=== PATIENT | male | born 1980 | race Caucasian/White ===

== ENCOUNTER 2020-03-19 15:04 | Outpatient (REF) | payer OTHER, SELFPAY ==
[2020-03-19 15:37] LABS: COVID-19 Test Positive (Negative)
== END 2020-03-19 15:05 | disposition home or self-care (01) ==
LOC: HO.LAB 15:04
PROVIDERS: Visit Provider Internal Medicine
DX: Z20.828 Contact with and (suspected) exposure to other viral communicable diseases (principal)
CPT/HCPCS: 87635

== ENCOUNTER 2020-08-21 13:11 | Outpatient (REF) | payer MEDICAID, SELFPAY | END 2020-08-21 13:12 | disposition home or self-care (01) | LOC: HO.LAB 13:11 | PROVIDERS: Visit Provider Internal Medicine | DX: Z20.822 Contact with and (suspected) exposure to COVID-19 (principal) | CPT/HCPCS: 36415; C9803; U0003; U0005 ==

== ENCOUNTER 2021-03-30 08:42 | Emergency (ER) | payer MEDICAID, SELFPAY ==
--- NOTE | ~2021-03-30 | XR_ITS ---
EXAMINATION: XR CHEST CLINICAL INFORMATION: Shortness of breath COMPARISON: Previous chest x-ray July 2018 TECHNIQUE: Frontal view of the chest was obtained. FINDINGS: No significant abnormality is noted involving the heart, lungs, mediastinum, bony thorax or soft tissues. XR/XR chest 1V IMPRESSION: Unremarkable examination.
[2021-03-30 08:47] VITALS: BP 137/73; PULSE 84; RESP 18; TEMP 36.4; O2SAT 96; BMI 27.4
--- NOTE | 2021-03-30 10:10 | ECG_ITS ---
Test Reason : SOB Blood Pressure : / mmHG Vent. Rate : 078 BPM Atrial Rate : 078 BPM P-R Int : 154 ms QRS Dur : 084 ms QT Int : 362 ms P-R-T Axes : 050 004 020 degrees QTc Int : 412 ms Normal sinus rhythm Normal ECG No significant changes seen Referred By: Dm Anderson Electronically Signed By:DEISI BISWAS MD
[2021-03-30 10:39] LABS: MANUAL DIFF FLAG NO
[2021-03-30 10:50] LABS: Basophils Percent Auto 0.2 % (0-2); Eosinophils Absolute Auto 0.1 X10*3/uL (0.0-0.4); Eosinophils Percent Auto 0.9 % (0-4); Hematocrit 37.9 % (42-52); Hemoglobin 11.1 g/dl (14.0-18.0); Imm Gran Abs Auto 0.01 X10*3/uL (0.00-0.03); Imm Gran Pct Auto 0.2 % (0.0-0.4); Lymphocytes Absolute Auto 1.1 X10*3/uL (1.2-4.9); Lymphocytes Percent Auto 20.1 % (20-40); Mean Corpuscular HGB Conc 29.3 g/dl (31.0-36.0); Mean Corpuscular Hemoglobin 21.7 pg (27.0-33.0); Monocytes Absolute Auto 0.6 X10*3/uL (0.1-1.2); Monocytes Percent Auto 10.8 % (2-11); Neutrophils Absolute Auto 3.6 X10*3/uL (2.0-8.3); Neutrophils Percent Auto 67.8 % (45-73); Platelet Count 203 X10*3/uL (160-400); Red Blood Count 5.12 X10*6/uL (4.60-5.80); Red Cell Distribution Width 17.9 % (11.0-16.0); White Blood Count 5.3 X10*3/uL (4.8-10.8)
[2021-03-30 11:00] LABS: Alanine Aminotransferase 16 U/L (0-40); Albumin Level 4.3 g/dL (3.5-5.0); Alkaline Phosphatase 89 U/L (39-117); Anion Gap 10 (12-20); Aspartate Amino Transferase 15 U/L (5-37); Bilirubin Total 0.3 mg/dL (0.0-1.0); Blood Urea Nitrogen 22 mg/dL (9-16); Calcium 9.2 mg/dL (8.4-10.2); Carbon Dioxide 24 mmol/L (22-29); Chloride 107 mmol/L (96-108); Creatinine Clr Calc Pharmacy 111.2; Estimated Glomerular Filt Rate > 60; Glucose Random 99 mg/dL (60-115); Potassium 4.4 mmol/L (3.3-5.1); Sodium 137 mmol/L (135-145); Total Protein 7.4 g/dL (6.5-8.0)
[2021-03-30 11:01] LABS: INTERNATIONAL NORM RATIO 0.9 (0.9-1.1); Prothrombin Time 10.7 SEC (9.9-13.0)
[2021-03-30 11:01] LABS: COVID-19 Test Negative (Negative)
[2021-03-30 11:02] LABS: B Type Natriuretic Peptide < 10 pg/mL (<100)
[2021-03-30 11:04] LABS: Partial Thromboplastin Time 29.3 SEC (24.1-38.0)
--- NOTE | 2021-03-30 11:22 | ED_ITS ---
HPI - General Adult General Chief complaint: Neck Pain/Injury Stated complaint: SOB/Neck pain Time Seen by Provider: 03/30/21 08:58 Source: patient Mode of arrival: ambulatory Limitations: no limitations History of Present Illness HPI narrative: Patient presents to ED from other complaints. Patient states he woke up with posterior neck pain that is worse on movement. Patient denies any photophobia, fever, chills, slurred speech, facial droop, paralysis of extremities, headche, or any recent trauma to the head or neck. Patient has secondary complaint of shortness of breath. Patient states no coughing, fever, or chills. Patient states he had COVID last year and since then has had intermittent shortness of breath on exertion since being diagnosed with COVID. Patient states slight worsening past couple weeks. Patient denies any recent long travel, recent surgery, swelling of lower extremities, calf pain, coughing up blood, any estrogen pill use, or any trauma. Patient denies any history of blood clots. Patient presently is asymptomatic but wanted to get worked up for it. Related Data Previous Rx's Medication Instructions Recorded cyclobenzaprine 10 mg tablet 10 mg PO TID PRN #21 tab 03/30/21 naproxen 500 mg tablet 500 mg PO BID PRN #20 tab 03/30/21 Allergies Allergy/AdvReac Type Severity Reaction Status Date / Time aspirin [Aspirin] Allergy Intermediate TACHYCARDIA, Verified 07/01/20 06:57 palpitations, tachycardia latex [LATEX] Allergy Intermediate RASH Unverified 02/21/20 17:55 diphenhydramine AdvReac Intermediate TACHYCARDIA Unverified 02/21/20 17:55 [From BENADRYL] AND CHNAGES IN BEHAVOR Review of Systems Review of Systems: Yes all other systems are reviewed and are negative Constitutional: Constitutional: Reports as per HPI and Reports no additional constitutional complaints Eyes: Eyes: Reports as per HPI and Reports no additional eye complaints ENT: Reports system reviewed and no additional complaints, except as documented and Reports neck pain Cardiovascular: Cardiovascular: Reports as per HPI, Reports no additional cardiovascular complaints and Reports dyspnea (For 1 year since having COVID) Respiratory: Respiratory: Reports as per HPI, Reports no additional respiratory complaints and Reports dyspnea (For 1 year since having COVID) Gastrointestinal: Gastrointestinal: Reports as per HPI and Reports no additional gastrointestinal complaints Genitourinary: Genitourinary: Reports no additional male genitourinary complaints and Reports as per HPI Musculoskeletal: Musculoskeletal: Reports no additional musculoskeletal complaints, Reports as per HPI and Reports neck pain Neurologic: Reports system reviewed and no additional complaints, except as documented and Reports as per HPI Psychiatric: Psychiatric: Reports no additional psychiatric complaints and Reports as per HPI [facility] Past Medical History Medical History (Updated 03/30/21 @ 12:07 by YANELY Lira) Abdominal pain despite therapy for Crohn's disease Surgical History (Updated 07/01/20 @ 06:58 by ANGELA Ellis) H/O abdominal surgery Family History Family History (Updated 07/01/20 @ 07:31 by ANGELA Ellis) Father Hypertension Mother Diabetes Maternal Grandfather Renal cancer Brother In good health Brother In good health Sister In good health Son In good health Son In good health Social History Social History Advance Directives: No Advance Directives Information Provided: Yes Physical Exam Vital Signs: Vital Signs: Last Vital Signs Temp 97.5 F 03/30/21 08:47 Pulse 79 03/30/21 11:48 Resp 18 03/30/21 11:48 BP 130/72 03/30/21 11:48 Pulse Ox 97 03/30/21 11:48 Body Mass Index 27.4 Const: General: cooperative, healthy appearing, comfortable, no acute distress, well developed, alert, awake and Physically active Orientation/consciousness: patient oriented x3 HENMT: Head: Yes normal to inspection, Yes No palpable skull fracture present, Yes normocephalic, Yes atraumatic and No abrasion Eyes: General: appearance normal, both eyes and all related structures Neck: Neck: Yes normal visual inspection, Yes full ROM, Yes no lymphadenopathy, Yes no meningeal signs, Yes trachea midline, Yes supple, No anterior neck swelling and Yes tender (Mild posterior) Chest: Chest palpation & inspection: normal inspection of the chest and normal palpation of entire chest wall Resp: Effort & Inspection: normal respiratory effort and able to speak in complete sentences Cardio: Jugular venous distension: no JVD Heart sounds: S1 normal heart sound present and S2 normal heart sound present GI: Inspection: Yes normal to inspection and No abdominal wall ecchymosis Palpation (GI): Soft to palpation, not firm, nontender, no guarding and not rigid : General: No CVA tenderness and Yes no CVA tenderness Back/Spine/Pelvis: Back: no CVA tenderness, No CVA tenderness and No back tenderness Skin: General skin exam: no rashes or lesions noted and elasticity normal Neuro: Other: Negative facial droop. Negative slurred speech. [id number]-[id number] and rapid hand movement intact. Negative Pronator drift. All extremities equal strength 5+. Negative Romberg General: patient oriented x3, gait normal, no meningeal signs and CN's II-XI intact bilaterally Cranial nerves: Yes CN's II-XII intact bilaterally Extrem: Other: Lower extremity negative for swelling, pitting edema, calf tenderness General: Yes normal to inspection and Yes full ROM Psych: Appearance: grossly normal, well kempt and not disheveled Course Course Course Narrative: No need for imaging of neck sounds like muscular pain. No injury. Do cardiac evaluation due to patient stating shortness of breath worsening possible weeks. Suspecting PE. Perc score is 0. Increase EKG ordered. Chest x-ray ordered. COVID or more. Reevaluation(s) Reevaluation #1: Patient EKG normal. Chest x-ray negative for pneumonia. COVID swab negative. Troponin negative. BNP negative. Labs are baseline. Perc score is 0. Not suspecting PE. Patient to be discharged and follow up pulmonology for chronic shortness of breath due to COVID since last year. Neck pain will be treated as muscular pain Time: 12:02 Medical Decision Making [facility] Narrative Medical decision making narrative: Chronic shortness of breath. Muscular neck pain Lab Data Result diagrams: 03/30/21 10:30 03/30/21 10:31 Labs: Lab Results 03/30/21 03/30/21 03/30/21 Range/Units 10:26 10:30 10:30 WBC 5.3 (4.8-10.8) X10*3/uL RBC 5.12 (4.60-5.80) X10*6/uL Hgb 11.1 L (14.0-18.0) g/dl Hct 37.9 L (42-52) % MCV 74.0 L (80-98) fL MCH 21.7 L (27.0-33.0) pg MCHC 29.3 L (31.0-36.0) g/dl RDW 17.9 H (11.0-16.0) % Plt Count 203 (160-400) X10*3/uL MPV Not Reportable Immature Gran % (Auto) 0.2 (0.0-0.4) % Neut % (Auto) 67.8 (45-73) % Lymph % (Auto) 20.1 (20-40) % [place] % (Auto) 10.8 (2-11) % Eos % (Auto) 0.9 (0-4) % Baso % (Auto) 0.2 (0-2) % Lymph # (Auto) 1.1 L (1.2-4.9) X10*3/uL [place] # (Auto) 0.6 (0.1-1.2) X10*3/uL Eos # (Auto) 0.1 (0.0-0.4) X10*3/uL Baso # (Auto) 0.0 (0.0-0.2) X10*3/uL Abs Immat Gran (auto) 0.01 (0.00-0.03) X10*3/uL Absolute Neuts (auto) 3.6 (2.0-8.3) X10*3/uL Absolute Nucleated RBC 0.000 (0.0-0.012) X10*3/uL Nucleated RBC % (auto) 0.0 (0.0-0.2) /100WBC PT 10.7 (9.9-13.0) SEC INR 0.9 (0.9-1.1) APTT 29.3 (24.1-38.0) SEC Sodium (135-145) mmol/L Potassium (3.3-5.1) mmol/L Chloride (96-108) mmol/L Carbon Dioxide (22-29) mmol/L Anion Gap (12-20) BUN (9-16) mg/dL Creatinine (0.5-1.4) mg/dL Estim Creat Clear Calc Estimated GFR Random Glucose (60-115) mg/dL Calcium (8.4-10.2) mg/dL Total Bilirubin (0.0-1.0) mg/dL AST (5-37) U/L ALT (0-40) U/L Alkaline Phosphatase (39-117) U/L Troponin I High Sens (<3.5-35.0) ng/L B-Natriuretic Peptide (<100) pg/mL Total Protein (6.5-8.0) g/dL Albumin (3.5-5.0) g/dL COVID-19 (ALLI) Negative (Negative) COVID-19 Clin Com See Note 03/30/21 03/30/21 Range/Units 10:31 10:31 WBC (4.8-10.8) X10*3/uL RBC (4.60-5.80) X10*6/uL Hgb (14.0-18.0) g/dl Hct (42-52) % MCV (80-98) fL MCH (27.0-33.0) pg MCHC (31.0-36.0) g/dl RDW (11.0-16.0) % Plt Count (160-400) X10*3/uL MPV Immature Gran % (Auto) (0.0-0.4) % Neut % (Auto) (45-73) % Lymph % (Auto) (20-40) % [place] % (Auto) (2-11) % Eos % (Auto) (0-4) % Baso % (Auto) (0-2) % Lymph # (Auto) (1.2-4.9) X10*3/uL [place] # (Auto) (0.1-1.2) X10*3/uL Eos # (Auto) (0.0-0.4) X10*3/uL Baso # (Auto) (0.0-0.2) X10*3/uL Abs Immat Gran (auto) (0.00-0.03) X10*3/uL Absolute Neuts (auto) (2.0-8.3) X10*3/uL Absolute Nucleated RBC (0.0-0.012) X10*3/uL Nucleated RBC % (auto) (0.0-0.2) /100WBC PT (9.9-13.0) SEC INR (0.9-1.1) APTT (24.1-38.0) SEC Sodium 137 (135-145) mmol/L Potassium 4.4 (3.3-5.1) mmol/L Chloride 107 (96-108) mmol/L Carbon Dioxide 24 (22-29) mmol/L Anion Gap 10 L (12-20) BUN 22 H (9-16) mg/dL Creatinine 0.88 (0.5-1.4) mg/dL Estim Creat Clear Calc 111.2 Estimated GFR > 60 Random Glucose 99 (60-115) mg/dL Calcium 9.2 (8.4-10.2) mg/dL Total Bilirubin 0.3 (0.0-1.0) mg/dL AST 15 (5-37) U/L ALT 16 (0-40) U/L Alkaline Phosphatase 89 (39-117) U/L Troponin I High Sens < 3.5 (<3.5-35.0) ng/L B-Natriuretic Peptide < 10 (<100) pg/mL Total Protein 7.4 (6.5-8.0) g/dL Albumin 4.3 (3.5-5.0) g/dL COVID-19 (ALLI) (Negative) COVID-19 Clin Com ECG Data Interpretation: Normal sinus rhythm. Ventricular rate 78. Pr interval 154. QRS 84. QTC 412. Negative STEMI Discharge Plan Discharge Clinical Impression: Post-COVID chronic dyspnea, Neck muscle spasm Patient Disposition: Home, Self-Care Instructions: Spasmodic Torticollis (ED), Dyspnea (ED), Muscle Spasm (ED) Additional Instructions: Return to the ED immediately for headache, photophobia, neck stiffness, drooli ng, rash, chest pain, shortness of breath coughing up blood, swelling of lower extremities, calf pain, or any other concerning symptoms. Please follow-up with primary care provider. You will be referred to a retouching operator for chronic shortness of breath due to COVID since last year. Prescriptions: New naproxen 500 mg tablet 500 mg PO BID PRN (Reason: pain) Qty: 20 RF: 0 cyclobenzaprine 10 mg tablet 10 mg PO TID PRN (Reason: pain) Qty: 21 RF: 0 Referrals: Tramaine Maxwell MD [Physician] - 2 days (Chronic shortness of breath due to COVID) Stand Alone Forms: Work/School Release Interventions: ED Discharge Assessment Last Done: 03/30/21 12:12 Discharge Date/Time: 03/30/21 12:12 Print Language: Slovenian
[2021-03-30 11:44] LABS: Troponin-I High Sensitivity < 3.5 ng/L (<3.5-35.0)
[2021-03-30 11:48] VITALS: BP 130/72; PULSE 79; RESP 18; O2SAT 97
== END 2021-03-30 12:12 | disposition home or self-care (01) ==
PROVIDERS: Physician Assistant; Emergency Provider Emergency Medicine
DX: R06.00 Dyspnea, unspecified (principal); U09.9 Post COVID-19 condition, unspecified; M62.830 Muscle spasm of back; Z20.822 Contact with and (suspected) exposure to COVID-19
CPT/HCPCS: 36415; 71045; 80053; 83880; 84484; 85025; 85610; 85730; 87635; 93005; 99283; 99284

== ENCOUNTER 2021-10-14 09:15 | Inpatient (IN) | payer MEDICAID, SELFPAY ==
--- NOTE | ~2021-10-14 | CT_ITS ---
EXAMINATION: CT ABDOMEN AND PELVIS WITHOUT CONTRAST CLINICAL INFORMATION: Pain. Rectal bleeding. Crohn's disease. COMPARISON: Abdominal MRI 05/01/[address] abdomen pelvis 02/25/2019 TECHNIQUE: Multidetector volumetric imaging was performed from the superior aspect of the liver through the pubic symphysis. Sagittal and coronal reformatted images were obtained on the technologist's workstation. This CT examination was performed using dose optimization techniques as appropriate, variously including the following: *Automated exposure control *Adjustment of mA and/or kV according to patient size (this includes techniques or standardized protocols for targeted exams where dose is matched to indication/reason for exam; i.e. extremities or head) *Use of iterative reconstruction technique DLP: 516 mGy-cm FINDINGS: Visualized lung bases are well aerated. The liver demonstrates normal size, contour and attenuation. Approximately 1.5 cm gallstone noted within otherwise unremarkable appearing gallbladder. The pancreas, spleen and adrenal glands are unremarkable. Symmetrically sized kidneys without renal calculi or hydronephrosis. Similar postsurgical changes of the small bowel. Similar prominence of the single loop of small bowel within the left abdomen. There is no evidence of an obstructive process. There is a mild to moderate colonic stool burden. Fat-containing ventral abdominal hernias are again noted and appear relatively similar. Normal caliber abdominal aorta. The bladder is normal in appearance. The prostate gland is normal in size. No gross free pelvic fluid. No inguinal lymphadenopathy. No acute osseous abnormality. CT/CT abdomen pelvis wo con IMPRESSION: No CT evidence for acute abnormality within the abdomen or pelvis. Fleischner guidelines were followed.
[2021-10-14 09:26] VITALS: BP 125/80; PULSE 89; RESP 16; TEMP 36.9; O2SAT 98; BMI 28.2
--- NOTE | 2021-10-14 09:56 | ED_ITS ---
HPI - Abdominal Pain General Chief Complaint: Abdominal Pain Stated Complaint: rectal bleeding Time Seen by Provider: 10/14/21 09:54 Source: patient Mode of arrival: ambulatory Limitations: no limitations History of Present Illness HPI narrative: 41-year-old male came in for evaluation of abdominal pain and rectal bleed. Patient with history of Crohn's disease and status post colectomy (done few years ago at [facility]), patient presented with increased abdominal pain, and blood mixed in the stool for the past 5 days. Patient also been feeling dizzy especially when he changed positions. No chest pain. No LOC. Related Data Previous Rx's Medication Instructions Recorded cyclobenzaprine 10 mg tablet 10 mg PO TID PRN #21 tab 03/30/21 naproxen 500 mg tablet 500 mg PO BID PRN #20 tab 03/30/21 Allergies Allergy/AdvReac Type Severity Reaction Status Date / Time aspirin [Aspirin] Allergy Intermediate TACHYCARDIA, Verified 07/01/20 06:57 palpitations, tachycardia latex [LATEX] Allergy Intermediate RASH Verified 10/14/21 10:29 diphenhydramine AdvReac Intermediate TACHYCARDIA Verified 10/14/21 10:29 [From BENADRYL] AND CHNAGES IN BEHAVOR Review of Systems Review of Systems All other systems are reviewed and are negative Constitutional: Reports as per HPI and Reports no additional constitutional complaints Eyes: Reports as per HPI and Reports no additional eye complaints Reports system reviewed and no additional complaints, except as documented Cardiovascular: Reports as per HPI and Reports no additional cardiovascular complaints Respiratory: Reports as per HPI and Reports no additional respiratory complaints Gastrointestinal: Reports as per HPI and Reports no additional gastrointestinal complaints Genitourinary: Reports no additional female genitourinary complaints Musculoskeletal: Reports no additional musculoskeletal complaints Skin/Breast: Reports system reviewed and no additional complaints, except as docu Psychiatric: Reports no additional psychiatric complaints Endocrine: Reports no additional endocrine complaints Hematologic/Lymphatic: Reports no additional hematologic/lymphatic complaints Allergic/Immunologic: Reports no additional allergic/immunologic complaints Reports system reviewed and no additional complaints, except as documented and Reports Abnormal speech present [facility] Past Medical History Medical History Abdominal pain despite therapy for Crohn's disease Asthma COVID-19 virus infection Crohn's disease Surgical History H/O abdominal surgery Family History Family History Father Hypertension Mother Diabetes Maternal Grandfather Renal cancer Brother In good health Brother In good health Sister In good health Son In good health Son In good health Social History Social History Alcohol intake: never Patient Tobacco Use Status: Never used Tobacco Use of substances other than those prescribed or required for medical reasons: No Advance Directives: No Advance Directives Information Provided: No Physical Exam ED Vital Signs: Vital Signs - 24 hr 10/14/21 09:26 10/14/21 11:22 Temperature 98.4 F Pulse Rate 89 77 Respiratory Rate 16 18 Blood Pressure 125/80 123/76 Pulse Oximetry 98 98 BMI result Body Mass Index 28.2 Vital signs have been reviewed as appeared to be correct. Blood pressure normal. Heart rate normal. Respiration rate normal. Temperature normal. Oxygen saturation normal. Appearance: Alert. Oriented X3. No acute distress. Head: Normal external exam. Normocephalic. Atraumatic. No Murray signs noted. No raccoon eyes noted Eyes: PERRLA. EOMI. Conjunctiva and sclera normal. Eyelids normal. ENT: TM's Normal. Pharynx normal. Uvula midline. Moist mucous membranes. No trismus noted. No drooling noted. No muffled voice noted. Neck: Normal inspection. Neck supple. FROM. No adenopathy. Thyroid Normal. No meningeal signs. No neck mass noted. CVS: Normal heart rate and rhythm. Heart sound normal. No murmurs noted. Pulses normal throughout. Respiratory: No respiratory distress. Painless inspiration. Breath sounds normal. No wheezes/rales/rhonchi noted. Chest nontender. No accessory muscle usage noted or decreased air movement noted. Abdomen: Soft, mild diffuse tenderness, no guarding, no rebound tenderness. Bowel sounds normal in all 4 quadrants. No distention noted. No organomegaly noted. No visible injury noted. Rectal exam: Maroon color stool and hematochezia. Back: No CVA tenderness. Full range of motion noted. Skin: Skin warm and dry. Normal skin color. Normal skin turgor. No rash es/lesions/lacerations noted. Extremities: No lower extremity edema. Extremities exhibit normal range of motion. Extremities nontender. Neuro: Oriented X 3. Cranial nerve exam: II-XII are grossly intact No motor deficit. No sensory deficit. Reflexes normal. Course Course Course Narrative: Assessment and plan. 41-year-old male with history of Crohn's disease came in with lower GI bleed he matochezia and dizziness, at this point patient is hemodynamically stable with no need for blood transfusion. CT of the abdomen pelvis showed no obvious acute Crohn's disease flare but patient was given a dose of Solu-Medrol. Will admit the patient for serial abdominal exam and serial CBC. MDM - Abdominal Pain Lab Data Attestation: I reviewed the patient's lab results. Result diagrams: 10/14/21 10:28 10/14/21 10:28 Labs: Lab Results 10/14/21 10/14/21 10/14/21 Range/Units 10:18 10:28 10:28 WBC 5.0 (4.8-10.8) X10*3/uL RBC 4.49 L (4.60-5.80) X10*6/uL Hgb 10.2 L (14.0-18.0) g/dl Hct 34.2 L (42.0-52.0) % MCV 76.2 L (80.0-98.0) fL MCH 22.7 L (27.0-33.0) pg MCHC 29.8 L (31.0-36.0) g/dl RDW 21.7 H (11.0-16.0) % Plt Count 200 (160-400) X10*3/uL MPV 11.1 (9.4-12.4) fL Immature Gran % (Auto) 0.4 (0.0-0.4) % Neut % (Auto) 65.9 (45-73) % Lymph % (Auto) 19.7 L (20-40) % [place] % (Auto) 11.8 H (2-11) % Eos % (Auto) 1.8 (0-4) % Baso % (Auto) 0.4 (0-2) % Lymph # (Auto) 1.0 L (1.2-4.9) X10*3/uL [place] # (Auto) 0.6 (0.1-1.2) X10*3/uL Eos # (Auto) 0.1 (0.0-0.4) X10*3/uL Baso # (Auto) 0.0 (0.0-0.2) X10*3/uL Abs Immat Gran (auto) 0.02 (0.00-0.03) X10*3/uL Absolute Neuts (auto) 3.3 (2.0-8.3) x10*3/uL Absolute Nucleated RBC 0.000 (0.0-0.012) X10*3/uL Nucleated RBC % (auto) 0.0 (0.0-0.2) /100WBC Sodium 137 (135-145) mmol/L Potassium 4.3 (3.3-5.1) mmol/L Chloride 106 (96-108) mmol/L Carbon Dioxide 24 (22-29) mmol/L Anion Gap 11 L (12-20) BUN 18 H (9-16) mg/dL Creatinine 0.86 (0.5-1.4) mg/dL Estim Creat Clear Calc 114.2 Estimated GFR > 60 Random Glucose 105 (60-115) mg/dL Calcium 9.5 (8.4-10.2) mg/dL Total Bilirubin < 0.2 (0.0-1.0) mg/dL Direct Bilirubin < 0.2 (0.0-0.5) mg/dL AST 20 (5-37) U/L ALT 17 (0-40) U/L Alkaline Phosphatase 67 D (39-117) U/L Total Protein 6.7 (6.5-8.0) g/dL Albumin 4.0 (3.5-5.0) g/dL Lipase 48 (8-78) U/L Urine Color Urine Appearance Urine pH (5.0-8.0) Ur Specific [place] (1.005-1.025) Urine Protein (NEG-TRACE) MG/DL Urine Glucose (UA) (NEG) MG/DL Urine Ketones (NEG) MG/DL Urine Blood (NEG) Urine Nitrite (NEG) Ur Leukocyte Esterase (NEG) Stool Occult Blood POSITIVE (NEGATIVE) 10/14/21 Range/Units 11:25 WBC (4.8-10.8) X10*3/uL RBC (4.60-5.80) X10*6/uL Hgb (14.0-18.0) g/dl Hct (42.0-52.0) % MCV (80.0-98.0) fL MCH (27.0-33.0) pg MCHC (31.0-36.0) g/dl RDW (11.0-16.0) % Plt Count (160-400) X10*3/uL MPV (9.4-12.4) fL Immature Gran % (Auto) (0.0-0.4) % Neut % (Auto) (45-73) % Lymph % (Auto) (20-40) % [place] % (Auto) (2-11) % Eos % (Auto) (0-4) % Baso % (Auto) (0-2) % Lymph # (Auto) (1.2-4.9) X10*3/uL [place] # (Auto) (0.1-1.2) X10*3/uL Eos # (Auto) (0.0-0.4) X10*3/uL Baso # (Auto) (0.0-0.2) X10*3/uL Abs Immat Gran (auto) (0.00-0.03) X10*3/uL Absolute Neuts (auto) (2.0-8.3) x10*3/uL Absolute Nucleated RBC (0.0-0.012) X10*3/uL Nucleated RBC % (auto) (0.0-0.2) /100WBC Sodium (135-145) mmol/L Potassium (3.3-5.1) mmol/L Chloride (96-108) mmol/L Carbon Dioxide (22-29) mmol/L Anion Gap (12-20) BUN (9-16) mg/dL Creatinine (0.5-1.4) mg/dL Estim Creat Clear Calc Estimated GFR Random Glucose (60-115) mg/dL Calcium (8.4-10.2) mg/dL Total Bilirubin (0.0-1.0) mg/dL Direct Bilirubin (0.0-0.5) mg/dL AST (5-37) U/L ALT (0-40) U/L Alkaline Phosphatase (39-117) U/L Total Protein (6.5-8.0) g/dL Albumin (3.5-5.0) g/dL Lipase (8-78) U/L Urine Color STRAW Urine Appearance HAZY Urine pH 5.5 (5.0-8.0) Ur Specific [place] 1.010 (1.005-1.025) Urine Protein NEG (NEG-TRACE) MG/DL Urine Glucose (UA) NEG (NEG) MG/DL Urine Ketones NEG (NEG) MG/DL Urine Blood NEG (NEG) Urine Nitrite NEG (NEG) Ur Leukocyte Esterase NEG (NEG) Stool Occult Blood (NEGATIVE) Imaging Data CT scan - abdomen: Attestation: I personally reviewed and interpreted this imaging study as follows: Radiologist's impression: No CT evidence for acute abnormality within the abdomen or pelvis.? ? Discharge Plan Discharge Clinical Impression: GI bleed, Hematochezia Patient Disposition: Admitted As Inpatient
[2021-10-14] MEDS: 0.9 % Sodium Chloride 1,000 ML 999 ML IV (10:31)
[2021-10-14 10:34] LABS: MANUAL DIFF FLAG NO
[2021-10-14 10:34] LABS: OBS1 POSITIVE (NEGATIVE)
[2021-10-14 10:35] LABS: OBS Int Ctl Valid YES
[2021-10-14 10:38] LABS: Basophils Percent Auto 0.4 % (0-2); Eosinophils Absolute Auto 0.1 X10*3/uL (0.0-0.4); Eosinophils Percent Auto 1.8 % (0-4); Hematocrit 34.2 % (42.0-52.0); Hemoglobin 10.2 g/dl (14.0-18.0); Imm Gran Abs Auto 0.02 X10*3/uL (0.00-0.03); Imm Gran Pct Auto 0.4 % (0.0-0.4); Lymphocytes Percent Auto 19.7 % (20-40); Mean Corpuscular HGB Conc 29.8 g/dl (31.0-36.0); Mean Corpuscular Hemoglobin 22.7 pg (27.0-33.0); Mean Corpuscular Volume 76.2 fL (80.0-98.0); Mean Platelet Volume 11.1 fL (9.4-12.4); Monocytes Absolute Auto 0.6 X10*3/uL (0.1-1.2); Monocytes Percent Auto 11.8 % (2-11); Neutrophils Absolute Auto 3.3 x10*3/uL (2.0-8.3); Neutrophils Percent Auto 65.9 % (45-73); Platelet Count 200 X10*3/uL (160-400); Red Blood Count 4.49 X10*6/uL (4.60-5.80); Red Cell Distribution Width 21.7 % (11.0-16.0)
[2021-10-14] MEDS: methylPREDNISolone Sod Succ 1,000 MG in 0.9 % Sodium Chloride 50 ML 66 MG IV (10:44)
--- NOTE | 2021-10-14 10:44 | PC.NURSE ---
Patient arrives reporting melena stool. Reports abdominal pain x 3 days and dizziness. Patient is alert and oriented. Respirations regular and even. Skin PWD. IV established and labs drawn. Hung NS 1L and solumedrol. Awaiting imaging and lab results. . Will continue to monitor.
[2021-10-14 11:12] LABS: Alanine Aminotransferase 17 U/L (0-40); Alkaline Phosphatase 67 U/L (39-117); Anion Gap 11 (12-20); Aspartate Amino Transferase 20 U/L (5-37); Bilirubin Direct < 0.2 mg/dL (0.0-0.5); Bilirubin Total < 0.2 mg/dL (0.0-1.0); Blood Urea Nitrogen 18 mg/dL (9-16); Calcium 9.5 mg/dL (8.4-10.2); Carbon Dioxide 24 mmol/L (22-29); Chloride 106 mmol/L (96-108); Creatinine Clr Calc Pharmacy 114.2; Estimated Glomerular Filt Rate > 60; Glucose Random 105 mg/dL (60-115); Lipase 48 U/L (8-78); Potassium 4.3 mmol/L (3.3-5.1); Sodium 137 mmol/L (135-145); Total Protein 6.7 g/dL (6.5-8.0)
[2021-10-14 11:22] VITALS: BP 123/76; PULSE 77; RESP 18; O2SAT 98
[2021-10-14 11:36] LABS: Appearance Urine HAZY; Color Urine STRAW; Glucose Urine UA NEG (NEG); Leukocyte Esterase Urine NEG (NEG); Nitrite Urine NEG (NEG); PH 5.5 (5.0-8.0); Urine Blood NEG (NEG); Urine Ketones NEG (NEG); Urine Protein NEG (NEG-TRACE)
[2021-10-14] MEDS: Morphine Sulfate 2 MG/ML CARTRIDGE IVPUSH ×3 (13:04→22:37)
--- NOTE | 2021-10-14 13:08 | PHA.MEDREC ---
Pharmacy Consult ? Medication Reconciliation Pharmacy has completed the medication reconciliation. There are no remarkable issues for provider's attention. Afshan Tan, NyaD
--- NOTE | 2021-10-14 13:50 | PC.NURSE ---
Patient is to be admitted. + OBS. Patient given morphine and reports pain is improved. Respirations regular and even. Skin PWD. Patient agreeable to plan. Awaiting admission orders.
[2021-10-14 13:59] VITALS: BP 119/71; PULSE 77; RESP 18; TEMP 36.9; O2SAT 96
[2021-10-14 15:46] VITALS: BP 118/68; PULSE 88; RESP 20; TEMP 36.9; O2SAT 97
[2021-10-14 16:22] LABS: COVID-19 Test Negative (Negative)
--- NOTE | 2021-10-14 16:40 | PM.IMHP ---
History of Present Illness Date of Service: 10/14/21 Chief Complaint: Rectal bleeding, abdominal pain A 41 years old male with PMH of Crohn's disease post colectomy who presents to the hospital with 2 days of rectal bleeding and abdominal pain. The patient reported his been doing well until the last 2 days when he started to feel blood coming out with stool with bowel movement mainly. No episodes of bleeding bright red blood. Denies any fever, chills but reports having lower abdominal pain which she denies usually having. He reports that he takes every 6 weeks last on October 03. He follows with [facility] but decided to come today for worsening symptoms. Blood work showed mild iron deficiency anemia but overall close to his baseline. Admitted for further evaluation and treatment. Review of Systems Review of Systems: No fever, chills or weakness No chest pain, palpitation No shortness of breath or coughing Reporting lower abdominal pain, no nausea or vomiting, rectal bleeding No urinary symptoms No any rash or wounds PMFSH Medical History Abdominal pain despite therapy for Crohn's disease Asthma COVID-19 virus infection Crohn's disease Family History Father Hypertension Mother Diabetes Maternal Grandfather Renal cancer Brother In good health Brother In good health Sister In good health Son In good health Son In good health Surgical History H/O abdominal surgery Social History Alcohol intake: never Patient Tobacco Use Status: Never used Tobacco Use of substances other than those prescribed or required for medical reasons: No Advance Directives: No Advance Directives Information Provided: No Meds Allergies Allergy/AdvReac Type Severity Reaction Status Date / Time aspirin [Aspirin] Allergy Intermediate TACHYCARDIA, Verified 07/01/20 06:57 palpitations, tachycardia latex [LATEX] Allergy Intermediate RASH Verified 10/14/21 10:29 diphenhydramine AdvReac Intermediate TACHYCARDIA Verified 10/14/21 10:29 [From BENADRYL] AND CHNAGES IN BEHAVOR Active Medications: Current Medications Pharmacy Consult (Consult Rx Perform Med Rec) 1 each MISCELLANE ONCE PRN PRN Reason: Consult order Home Medications Medication Instructions Recorded Confirmed Last Taken Type albuterol sulfate 90 mcg/actuation 2 puff PO Q4-6H PRN 10/14/21 10/14/21 Unknown History aerosol inhaler (ProAir HFA) cetirizine 10 mg tablet 1 tab PO DAILY 10/14/21 10/14/21 10/13/21 History cholecalciferol (vitamin D3) 25 2 tab PO DAILY 10/14/21 10/14/21 10/13/21 History mcg (1,000 unit) tablet dexlansoprazole 30 mg 1 cap PO QAM 10/14/21 10/14/21 10/13/21 History capsule,biphase delayed release (Dexilant) melatonin 3 mg tablet 3 mg PO BEDTIME 10/14/21 10/14/21 10/13/21 History Physical Exam Vital Signs and Narrative: Vital Signs: Last Vital Signs Temp 98.5 F 10/14/21 15:46 Pulse 88 10/14/21 15:46 Resp 20 10/14/21 15:46 BP 118/68 10/14/21 15:46 Pulse Ox 97 10/14/21 15:46 BMI result Body Mass Index 28.2 Const: Other: Constitutional : Alert, oriented, not in distress Neck : Normal inspection, Supple Cardiovascular : RRR, no JVP, no lower extremity edema Respiratory : fair bilateral air entry, no crackles, wheezes or rhonchi Gastrointestinal: soft, lax, Normal bowel sounds, mild abdominal tenderness in the periumbilical and suprapubic areas, surgical scars Skin : Warm, Dry Neurological : Alert & oriented x3, No focal deficit , CN 2-12 within normal Results Labs CBC and Chem 7: 10/14/21 10:28 10/14/21 10:28 Labs: Laboratory Results - last 24 hr 10/14/21 10/14/21 10/14/21 10:18 10:28 10:28 MCV 76.2 L MCH 22.7 L MCHC 29.8 L RDW 21.7 H Plt Count 200 MPV 11.1 Immature Gran % (Auto) 0.4 Neut % (Auto) 65.9 Lymph % (Auto) 19.7 L Mcdonough % (Auto) 11.8 H Eos % (Auto) 1.8 Baso % (Auto) 0.4 Lymph # (Auto) 1.0 L Mcdonough # (Auto) 0.6 Eos # (Auto) 0.1 Baso # (Auto) 0.0 Abs Immat Gran (auto) 0.02 Absolute Neuts (auto) 3.3 Absolute Nucleated RBC 0.000 Nucleated RBC % (auto) 0.0 Anion Gap 11 L Estim Creat Clear Calc 114.2 Estimated GFR > 60 Random Glucose 105 Calcium 9.5 Total Bilirubin < 0.2 Direct Bilirubin < 0.2 AST 20 ALT 17 Alkaline Phosphatase 67 D Total Protein 6.7 Albumin 4.0 Lipase 48 Urine Color Urine Appearance Urine pH Ur Specific [place] Urine Protein Urine Glucose (UA) Urine Ketones Urine Blood Urine Nitrite Ur Leukocyte Esterase Stool Occult Blood POSITIVE COVID-19 (ALLI) COVID-View2Gether 10/14/21 10/14/21 11:25 16:03 MCV MCH MCHC RDW Plt Count MPV Immature Gran % (Auto) Neut % (Auto) Lymph % (Auto) Mcdonough % (Auto) Eos % (Auto) Baso % (Auto) Lymph # (Auto) Mcdonough # (Auto) Eos # (Auto) Baso # (Auto) Abs Immat Gran (auto) Absolute Neuts (auto) Absolute Nucleated RBC Nucleated RBC % (auto) Anion Gap Estim Creat Clear Calc Estimated GFR Random Glucose Calcium Total Bilirubin Direct Bilirubin AST ALT Alkaline Phosphatase Total Protein Albumin Lipase Urine Color STRAW Urine Appearance HAZY Urine pH 5.5 Ur Specific [place] 1.010 Urine Protein NEG Urine Glucose (UA) NEG Urine Ketones NEG Urine Blood NEG Urine Nitrite NEG Ur Leukocyte Esterase NEG Stool Occult Blood COVID-19 (ALLI) Negative COVID-19 Bravofly Com See Note Imaging Radiologist's Impressions: Impressions Abdomen/Pelvis CT 10/14/21 10:18 IMPRESSION: No CT evidence for acute abnormality within the abdomen or pelvis. Fleischner guidelines were followed. Assessment and Plan (1) Hematochezia: Status: Acute (2) Abdominal pain despite therapy for Crohn's disease: Status: Acute (3) Exacerbation of Crohn's disease: Status: Acute Plan A 41 years old male with PMH of Crohn's disease post colectomy who presents to the hospital with 2 days of rectal bleeding and abdominal pain. Hematochezia Crohn's disease exacerbation CT scan showed Monitor H and H Get GI evaluation Start IV steroids for now Gentle hydration Full liquid diet History of asthma Albuterol inhaler as needed DVT PPX Early ambulation Patient will need to her night hospital stay for further evaluation of source of bleeding and possible intervention needed given chance of worsening condition and decompensation. Quality Stroke Does the patient have a stroke diagnosis?: No VTE Prior VTE?: No VTE Risk Level:: Medical - moderate - high VTE Device Contraindication: Treatment Not Indicated VTE Drug Contraindication: Treatment Not Indicated
[2021-10-14] MEDS: Sodium Chloride 0.45 % 1,000 ML 100 ML IVCONT (16:55)
[2021-10-14 19:30] VITALS: BP 124/67; PULSE 104; RESP 20; TEMP 37; O2SAT 97
--- NOTE | 2021-10-14 22:04 | MHC.CM.PN ---
CM met with A&O x4 Czech speaking gentleman with bed assignment pending. Declines HCP. VAX x2/[employer] 10/07 & 11/04/20. Lives with S.O. Uses no DME/Services. D/C plan: Home without services. Pt states will drive himself home. Can arrange transportation if needed. CM to follow for d/c needs.
[2021-10-14] MEDS: Melatonin 3 MG TABLET PO (22:29)
[2021-10-14 23:15] VITALS: BP 125/62; PULSE 94; RESP 16; TEMP 36.8; O2SAT 97
[2021-10-15] MEDS: Sodium Chloride 0.45 % 1,000 ML 100 ML IVCONT ×2 (02:37→13:20)
[2021-10-15] MEDS: Morphine Sulfate 2 MG/ML CARTRIDGE IVPUSH (04:20)
[2021-10-15 07:56] LABS: Hematocrit 34.3 % (42.0-52.0); Hemoglobin 10.2 g/dl (14.0-18.0); Mean Corpuscular HGB Conc 29.7 g/dl (31.0-36.0); Mean Corpuscular Hemoglobin 22.6 pg (27.0-33.0); Mean Corpuscular Volume 76.1 fL (80.0-98.0); Mean Platelet Volume 11.5 fL (9.4-12.4); Platelet Count 253 X10*3/uL (160-400); Red Blood Count 4.51 X10*6/uL (4.60-5.80); Red Cell Distribution Width 22.1 % (11.0-16.0); White Blood Count 16.9 X10*3/uL (4.8-10.8)
[2021-10-15 08:14] LABS: Anion Gap 14 (12-20); Blood Urea Nitrogen 13 mg/dL (9-16); Calcium 9.1 mg/dL (8.4-10.2); Carbon Dioxide 24 mmol/L (22-29); Chloride 104 mmol/L (96-108); Creatinine Clr Calc Pharmacy 124.3; Estimated Glomerular Filt Rate > 60; Glucose Random 144 mg/dL (60-115); Potassium 3.8 mmol/L (3.3-5.1); Sodium 138 mmol/L (135-145)
[2021-10-15 08:19] VITALS: BP 132/54; PULSE 77; RESP 18; TEMP 36.9; O2SAT 99
[2021-10-15] MEDS: Cholecalciferol (Vitamin D3) 25 MCG TABLET 50 MCG PO (08:55)
[2021-10-15] MEDS: Loratadine 10 MG TABLET PO (08:55)
[2021-10-15] MEDS: methylPREDNISolone Sod Succ 40 MG/ML VIAL IVPUSH (08:55)
--- NOTE | 2021-10-15 09:17 | P.CNGI_ITS ---
History of Present Illness Data of Consult Service Date: 10/15/21 Requesting physician: Debra Nelson Primary Care Provider: Monica Iraheta MD [facility] Reason for consult: rectal bleeding Chief Complaint: Rectal bleeding, abdominal pain 41 YM with celiac disease and fibrostenotic Crohn's disease status post surgery x 3 (stricturoplasty and small bowel resection) seen at [facility] [place] ED on 10/14/21 with 3 days of rectal bleeding and abdominal pain.? The patient reported his been doing well until the last 3-4 days when he started to feel dark blood coming out with stool with bowel movement mainly.? No episodes of bleeding bright red blood.? Denies any fever, chills but reports having lower abdominal pain which he denies usually having.? Pain was pressure-like and not affected by eating. Pt noted dizziness while he was taking a shower. Patient reports being diagnosed with Crohn's disease 16 years ago. He has had 3 surgeries (1st two surgeries were performed at [facility] - stricturoplasty and he had 6 inches of small bowel removed during the last surgery at [facility] [place] 4-5 yrs ago). Pt has been on Remicade every 6 weeks - last infusion on October 03.? He follows with Dr Pleitez, [facility] but decided to come today for worsening symptoms.? Blood work showed mild iron deficiency anemia but overall close to his baseline. Pt was admitted for further evaluation and treatment and started on IV predniso ne. Pt reports getting an iron infusion a month ago - hx of chronic MARK. 3?2021 patient had a colonoscopy performed by Dr. Pepe at [facility] [place] which showed an end-to-side ED okay colic anastomosis - felt a bit tight on intubation without iza stricture. Multiple 1-2 mm pseudo polyps in the descending colon Small internal and external hemorrhoids. Pt was advised further evaluation with MR enterography. Patient takes Dexilant for heartburn and denies dysphagia, nausea, vomiting, change in appetite or weight. Denies recent change in bowel habits or diarrhea.. Denies being on chronic anticoagulation. Patient denies smoking or EtOH abuse. Patient works in [employer] and has 2 children (16 & 17 yrs old) Patient denies known family history of IBD colon polyps, colon cancer or other GI malignancies. IMAGING STUDIES: 10/14/[address] SCAN SHOWED: The liver demonstrates normal size, contour and attenuation. Approximately 1.5 cm gallstone noted within otherwise unremarkable appearing gallbladder. Similar postsurgical changes of the small bowel. Similar prominence of the single loop of small bowel within the left abdomen. There is no evidence of an obstructive process. There is a mild to moderate colonic stool burden. Fat-containing ventral abdominal hernias are again noted and appear relatively similar. PAST EGD/COLONOSCOPY: 09/2018 EGD AND COLONOSCOPY WERE PERFORMED BY DR. MACKEY: Esophagus: GE junction at 42 cm. No esophagitis or Moody?s. Stomach: Mild gastric erythema. Biopsies were obtained. Grade 2 flap valve on retroflexed examination of the cardia. Duodenum: Abormal bulb and descending duodenum with mucosal flattening and cobblestoning, bx taken Colonoscopy Findings: Ileocolonic anastomosis: small bowel could not be entered due to edema, inflammation, bx taken from the area Ascending Colon ? normal Transverse Colon - normal bx from above 2 sites in seperate jar Descending Colon ? 1-2 pseudopolyps seen Sigmoid Colon ? normal Rectum ? normal Anorectum - retroflexion with grade I moderate sized hemorrhoids with some contact bleeding, minor BIOPSIES SHOWED: A. Duodenal bx's B. Stomach bx's C. Ileocolonic anastomosis bx's D. Right sided and transverse colon bx's E. Left sided colon bx's F. Rectal bx's DIAGNOSIS A. Duodenum, biopsy: Duodenal mucosa with focal complete effacement of villous architecture and increased intraepithelial lymphocytes. See comment. B. Stomach, biopsy: Moderate chronic inactive gastritis; no Helicobacter organisms seen. C. Ileocolonic anastomosis, biopsy: Colonic mucosa with chronic, moderately active, inflammation. D. Colon, right and transverse, biopsy: Chronic inactive colitis. E. Colon, left, biopsy: Chronic inactive colitis. F. Rectum, biopsy: Colonic mucosa within normal limits. COMMENT: The patient's history of Crohn's is noted. A few small loose granulomas are seen in part D. No dysplasia is seen in any of the biopsies. The findings in the duodenum raise the possibility of concurrent celiac disease; however, upper tract involvement by Crohn's can give the same histologic picture. PAST GI HISTORY BY REVIEW OF MEDICAL RECORDS: Pt was followed by Dr Mayer from 2010 to for IBD, small bowel stricture, GERD and anemia 07/17/13 Dr Mchugh at [facility]: Jejunoileal Crohn's disease; 16 strictures were identified. Multiple stricturoplasties were done--appendix was removed. The terminal ileum was examined and felt to be normal for quite a distance. Pt was started on Humira and in 2015 switched to Entyvio after surgery. 11/2018 Pt was started on remicade Review of Systems Constitutional: Constitutional: Denies chills and Denies fever(s) Eyes: Eyes: Denies change in vision ENT: Denies hoarseness Cardiovascular: Cardiovascular: Denies chest pain and Denies dyspnea on exertion Respiratory: Respiratory: Denies cough, Denies dyspnea on exertion and Denies wheezing Gastrointestinal: Gastrointestinal: Reports abdominal pain and Reports other (rectal bleeding) Genitourinary: Genitourinary: Denies no additional male genitourinary complaints Musculoskeletal: Musculoskeletal: Denies arthralgias Psychiatric: Psychiatric: Reports anxiety Allergic/Immunologic: Allergic/Immunologic: Denies wheezing PMFSH Past Medical History Medical History Abdominal pain despite therapy for Crohn's disease Asthma COVID-19 virus infection Crohn's disease Family History Family History Father Hypertension Mother Diabetes Maternal Grandfather Renal cancer Brother In good health Brother In good health Sister In good health Son In good health Son In good health Surgical History Surgical History H/O abdominal surgery Social History Social History Alcohol intake: never Patient Tobacco Use Status: Never used Tobacco Use of substances other than those prescribed or required for medical reasons: No Advance Directives: No Advance Directives Information Provided: No service: No Current occupational status: employed Meds Allergies Allergy/AdvReac Type Severity Reaction Status Date / Time aspirin [Aspirin] Allergy Intermediate TACHYCARDIA, Verified 07/01/20 06:57 palpitations, tachycardia latex [LATEX] Allergy Intermediate RASH Verified 10/14/21 10:29 diphenhydramine AdvReac Intermediate TACHYCARDIA Verified 10/14/21 10:29 [From BENADRYL] AND CHNAGES IN BEHAVOR Active Medications: Current Medications Acetaminophen (Acetaminophen 325 Mg Tablet) 650 mg PO Q6H PRN PRN Reason: Pain, Mild (Pain Scale 1-3) Albuterol Sulfate (Albuterol Sulfate 90 Mcg 8 Gm Inhaler) 2 puff INHALE Q4H PRN PRN Reason: Shortness of Breath/Wheezing Sodium Chloride () 1,000 mls @ 100 mls/hr IVCONT .Q10H [facility] Last Admin: 10/15/21 02:37 Dose: 100 mls/hr Documented by: Loratadine (Loratadine 10 Mg Tablet) 10 mg PO DAILY [facility] Last Admin: 10/15/21 08:55 Dose: 10 mg Documented by: Melatonin (Melatonin 3 Mg Tablet) 3 mg PO BEDTIME [facility] Last Admin: 10/14/21 22:29 Dose: 3 mg Documented by: Methylprednisolone Sodium Succinate (Methylprednisolone Sod Succ 40 Mg/Ml Vial) 40 mg IVPUSH Q24H [facility] Last Admin: 10/15/21 08:55 Dose: 40 mg Documented by: Morphine Sulfate (Morphine Sulfate 2 Mg/Ml Cartridge) 2 mg IVPUSH Q4H PRN; Protocol PRN Reason: Pain, Severe (Pain Scale 7-10) Last Admin: 10/15/21 04:20 Dose: 2 mg Documented by: Ondansetron HCl (Ondansetron Hcl 4 Mg/2 Ml Vial) 4 mg IVPUSH Q8H PRN PRN Reason: Nausea and Vomiting Pharmacy Consult (Consult Rx Perform Med Rec) 1 each MISCELLANE ONCE PRN PRN Reason: Consult order Sodium Chloride (0.9 % Sodium Chloride Flush 3 Ml Syringe) 3 ml IVFLUSH QSHIFT [facility] Last Admin: 10/15/21 08:48 Dose: Not Given Documented by: Vitamin D (Cholecalciferol (Vitamin D3) 25 Mcg Tablet) 50 mcg PO DAILY [facility] Last Admin: 10/15/21 08:55 Dose: 50 mcg Documented by: Home Medications Medication Instructions Recorded Confirmed Last Taken Type albuterol sulfate 90 mcg/actuation 2 puff PO Q4-6H PRN 10/14/21 10/14/21 Unknown History aerosol inhaler (ProAir HFA) cetirizine 10 mg tablet 1 tab PO DAILY 10/14/21 10/14/21 10/13/21 History cholecalciferol (vitamin D3) 25 2 tab PO DAILY 10/14/21 10/14/21 10/13/21 History mcg (1,000 unit) tablet dexlansoprazole 30 mg 1 cap PO QAM 10/14/21 10/14/21 10/13/21 History capsule,biphase delayed release (Dexilant) melatonin 3 mg tablet 3 mg PO BEDTIME 10/14/21 10/14/21 10/13/21 History Physical Exam Vital Signs: Vital Signs: Last Vital Signs Temp 98.5 F 10/15/21 08:19 Pulse 77 10/15/21 08:19 Resp 18 10/15/21 08:19 BP 132/54 L 10/15/21 08:19 Pulse Ox 99 10/15/21 08:19 BMI result Body Mass Index 28.2 Const: General: healthy appearing and no acute distress Nutritional Appearance: overweight Orientation/consciousness: patient oriented x3 Limitations: no limitations HEENT: Head: Yes normal to inspection Ears: hearing grossly normal bilaterally Eyes: Sclerae: sclerae normal Pupils: Equal, round and reactive pupils present Neck: Neck: Yes normal visual inspection Chest: Chest palpation & inspection: normal inspection of the chest Resp: Effort & Inspection: normal respiratory effort Auscultation: clear to auscultation bilaterally Cardio: Palpation: normal PMI Rate: regular rate Rhythm: regular rhythm Heart sounds: S1 normal heart sound present, S2 normal heart sound present and no murmurs GI: Palpation (GI): Soft to palpation, nontender and No hepatosplenomegaly present Auscultation: normal bowel sounds Rectal Exam - Male: Yes deferred Skin: General skin exam: no rashes or lesions noted Neuro: General: patient oriented x3, gait normal and moves all extremities Cranial nerves: Yes Equal, round and reactive pupils present Psych: Appearance: grossly normal Mental Status: mental status grossly normal Results Labs CBC & Chem 7: 10/16/21 05:42 10/15/21 07:35 Labs: Short CBC 10/14/21 10/15/21 Range/Units 10:28 07:35 WBC 5.0 16.9 H (4.8-10.8) X10*3/uL Hgb 10.2 L 10.2 L (14.0-18.0) g/dl Hct 34.2 L 34.3 L (42.0-52.0) % Plt Count 200 253 D (160-400) X10*3/uL BMP 10/14/21 10/15/21 10:28 07:35 Sodium 137 138 Potassium 4.3 3.8 Chloride 106 104 Carbon Dioxide 24 24 BUN 18 H 13 Creatinine 0.86 0.79 Calcium 9.5 9.1 Liver Function 10/14/21 Range/Units 10:28 Total Bilirubin < 0.2 (0.0-1.0) mg/dL Direct Bilirubin < 0.2 (0.0-0.5) mg/dL AST 20 (5-37) U/L ALT 17 (0-40) U/L Alkaline Phosphatase 67 D (39-117) U/L Albumin 4.0 (3.5-5.0) g/dL Urine 10/14/21 Range/Units 11:25 Urine Color STRAW Urine Appearance HAZY Urine pH 5.5 (5.0-8.0) Ur Specific [place] 1.010 (1.005-1.025) Urine Protein NEG (NEG-TRACE) MG/DL Urine Glucose (UA) NEG (NEG) MG/DL Assessment and Plan (1) Celiac disease: Status: Acute TTG IgA elevated at 33.7 indicating pt is not on a strict gluten free diet. (2) Exacerbation of Crohn's disease: Status: Acute 41 YM with celiac disease, chronic MARK and fibrostenotic Crohn's disease status post surgery x 3 (stricturoplasty and small bowel resection) admitted with rectal bleeding and abdominal pain.? Pt has been on Remicade every 6 weeks - last infusion on October 03 and states he has been compliant.? Blood work showed mild iron deficiency anemia (baseline). Pt was started on IV prednisone. 3?2021 patient had a colonoscopy performed by Dr. Pepe at [facility] [place] which showed an end-to-side ED okay colic anastomosis - felt a bit tight on intubation without iza stricture. Multiple 1-2 mm pseudo polyps in the descending colon, small internal and external hemorrhoids. Pt denies any BM or bleeding today and H&H has been stable over the past 24 hrs. (3) GI bleed: Status: Acute Plan 1. Agree with IV prednisone. 2. Recheck CBC in the am and if stable, pt can be discharged on prednisone 40 mg daily and taper by 10 mg every 5 days over 3 weeks. 3. TTG Ig A to check if celiac disease is well controlled - added to am labs. 4. Pt can FU with Dr Pleitez after discharge Procedures Date of Service Date of Service: 10/15/21
[2021-10-15 12:03] VITALS: BP 115/63; PULSE 72; RESP 16; TEMP 36.7; O2SAT 98
--- NOTE | 2021-10-15 13:53 | PC.NURSE ---
1345 No s/s of GI Bleed. No BM per patient. Tlo diet. Family brought in soup with some vegetables, pt aware that is not on diet. states he'll eat just a little. Denies pain.
--- NOTE | 2021-10-15 14:26 | P.PNIM_ITS ---
Subjective Subjective Date of Service: 10/15/21 Interval History: seen and examined this morning follow up for crohns flare no abdominal pain at this time, no further rectal bleeding Review of Systems Review of Systems: Yes all other systems are reviewed and are negative Constitutional Constitutional: Denies chills and Denies fever(s) Cardiovascular Cardiovascular: Denies palpitations and Denies dyspnea Respiratory Respiratory: Denies cough and Denies dyspnea Gastrointestinal Gastrointestinal: Denies abdominal pain, Denies nausea and Denies vomiting Endocrine Endocrine: Denies palpitations Physical Exam Vital Signs: Vital Signs: Last Vital Signs Temp 98.1 F 10/15/21 12:03 Pulse 72 10/15/21 12:03 Resp 16 10/15/21 12:03 BP 115/63 10/15/21 12:03 Pulse Ox 98 10/15/21 12:03 BMI result Body Mass Index 28.2 Objective Data Active Medications Acetaminophen (Acetaminophen 325 Mg Tablet) 650 mg PO Q6H PRN PRN Reason: Pain, Mild (Pain Scale 1-3) Albuterol Sulfate (Albuterol Sulfate 90 Mcg 8 Gm Inhaler) 2 puff INHALE Q4H PRN PRN Reason: Shortness of Breath/Wheezing Sodium Chloride () 1,000 mls @ 100 mls/hr IVCONT .Q10H [facility] Last Admin: 10/15/21 13:20 Dose: 100 mls/hr Documented by: JUSTIN Loratadine (Loratadine 10 Mg Tablet) 10 mg PO DAILY [facility] Last Admin: 10/15/21 08:55 Dose: 10 mg Documented by: JUSTIN Melatonin (Melatonin 3 Mg Tablet) 3 mg PO BEDTIME [facility] Last Admin: 10/14/21 22:29 Dose: 3 mg Documented by: FEDERICO Methylprednisolone Sodium Succinate (Methylprednisolone Sod Succ 40 Mg/Ml Vial) 40 mg IVPUSH Q24H [facility] Last Admin: 10/15/21 08:55 Dose: 40 mg Documented by: JUSTIN Morphine Sulfate (Morphine Sulfate 2 Mg/Ml Cartridge) 2 mg IVPUSH Q4H PRN; Protocol PRN Reason: Pain, Severe (Pain Scale 7-10) Last Admin: 10/15/21 04:20 Dose: 2 mg Documented by: LACI Ondansetron HCl (Ondansetron Hcl 4 Mg/2 Ml Vial) 4 mg IVPUSH Q8H PRN PRN Reason: Nausea and Vomiting Pharmacy Consult (Consult Rx Perform Med Rec) 1 each MISCELLANE ONCE PRN PRN Reason: Consult order Sodium Chloride (0.9 % Sodium Chloride Flush 3 Ml Syringe) 3 ml IVFLUSH QSHIFT [facility] Last Admin: 10/15/21 08:48 Dose: Not Given Documented by: JUSTIN Non-Admin Reason: IV Running Vitamin D (Cholecalciferol (Vitamin D3) 25 Mcg Tablet) 50 mcg PO DAILY [facility] Last Admin: 10/15/21 08:55 Dose: 50 mcg Documented by: JUSTIN Labs CBC & Chem 7: 10/15/21 07:35 10/15/21 07:35 Labs: Laboratory Results - last 24 hr 10/14/21 10/15/21 10/15/21 16:03 07:35 07:35 MCV 76.1 L MCH 22.6 L MCHC 29.7 L RDW 22.1 H Plt Count 253 D MPV 11.5 Absolute Nucleated RBC 0.000 Nucleated RBC % (auto) 0.0 Anion Gap 14 Estim Creat Clear Calc 124.3 Estimated GFR > 60 Random Glucose 144 H D Calcium 9.1 COVID-19 (ALLI) Negative COVID-19 Clin Com See Note Assessment and Plan (1) Exacerbation of Crohn's disease: Status: Acute (2) Hematochezia: Status: Acute Plan A 41 years old male with PMH of Crohn's disease post colectomy who presents to the hospital with 2 days of rectal bleeding and abdominal pain. Hematocheziano further episodes ? r/t Crohn's disease exacerbation CT scan showed relatively unremarkable H/H stable Get GI consult pending Continue IV steroids for now Gentle hydration Full liquid diet leukocytosis Likely secondary to steroid use History of asthma Albuterol inhaler as needed DVT PPX Early ambulation attending: dr. david Patient will need to her night hospital stay for further evaluation of source of bleeding and possible intervention needed given chance of worsening condition and decompensation. Quality Stroke Does the patient have a stroke diagnosis?: No VTE Prior VTE?: No VTE Risk Level:: Medical - moderate - high VTE Device Contraindication: Treatment Not Indicated VTE Drug Contraindication: Treatment Not Indicated
[2021-10-15 14:32] LABS: C Reactive Protein 0.16 mg/dL (< or = 0.50)
--- NOTE | 2021-10-15 16:36 | PC.NURSE ---
Pt reeducated regarding full liquid diet after being found eating food brought in by spouse. Pt verbalized understanding.
[2021-10-15 18:27] VITALS: BP 149/63; PULSE 91; RESP 18; TEMP 36.7; O2SAT 97
[2021-10-15] MEDS: Melatonin 3 MG TABLET PO (19:47)
[2021-10-16 00:07] VITALS: BP 103/60; PULSE 72; RESP 16; TEMP 36.5; O2SAT 98
--- NOTE | 2021-10-16 06:49 | PC.NURSE ---
Patient resting comfortably , no c/o pain overnight. Will continue to monitor.
[2021-10-16 06:54] LABS: Hematocrit 30.3 % (42.0-52.0); Mean Corpuscular HGB Conc 29.7 g/dl (31.0-36.0); Mean Corpuscular Hemoglobin 23.2 pg (27.0-33.0); Mean Corpuscular Volume 78.1 fL (80.0-98.0); Mean Platelet Volume 12.3 fL (9.4-12.4); Platelet Count 204 X10*3/uL (160-400); Red Blood Count 3.88 X10*6/uL (4.60-5.80); Red Cell Distribution Width 22.5 % (11.0-16.0); White Blood Count 11.2 X10*3/uL (4.8-10.8)
[2021-10-16 07:45] LABS: Ferritin 10 ng/mL (20-250)
[2021-10-16 08:45] LABS: Folate 5.5 ng/mL (> or = 4.0); Vitamin B12 201 pg/mL (200-900)
[2021-10-16] MEDS: Sodium Chloride 0.45 % 1,000 ML 100 ML IVCONT (09:25)
--- NOTE | 2021-10-16 09:49 | MHC.CM.PN ---
PT MEDICALLY CLEARED FOR D/C HOME SELF-CARE, PT WILL ARRANGE TRANSPORT
--- NOTE | 2021-10-16 10:10 | PM.DS ---
DS: Providers Provider Date of Service: 10/16/21 Date of admission: 10/14/21 16:37 Date of discharge: 10/16/21 Primary care physician: Monica Iraheta MD Consults: 10/14/21 16:37 Consult to Gastroenterology Routine Consulting Provider: Jaleel Stephens Reason for consultation: Crohns disease hx post colectomy w Hematochazia & pain Attending physician on discharge: Teodoro Leonard Discharging clinician: Octavia Avila DS: Diagnosis Discharge Diagnosis (1) Celiac disease: Status: Acute (2) Exacerbation of Crohn's disease: Status: Acute (3) GI bleed: Status: Acute DS: Summary Hospital Course Hospital Course: From H&P on day of admission A 41 years old male with PMH of Crohn's disease post colectomy who presents to the hospital with 2 days of rectal bleeding and abdominal pain.? The patient reported his been doing well until the last 2 days when he started to feel blood coming out with stool with bowel movement mainly.? No episodes of bleeding bright red blood.? Denies any fever, chills but reports having lower abdominal pain which she denies usually having.? He reports that he takes every 6 weeks last on October 03.? He follows with [facility] but decided to come today for worsening symptoms.? Blood work showed mild iron deficiency anemia but overall close to his baseline. Admitted for further evaluation and treatment. Discharge diagnosis hematochezia.acute GI bleeding secondary to acute crohns flare Patient was admitted to the hospital for hematochezia secondary to acute Crohn's flare. His CT scan was unremarkable. He was seen in consultation by Gastroenterology who agreed with IV steroids. He had no further episodes of bleeding while hospitalized. His H/ H remained fairly stable. His diet was advanced and his abdominal pain resolved. He is eager to return home. 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 He will be discharged home to complete a tapering course of steroids. Repeat CBC will be checked in 1 week. He is encouraged to return to the emergency department if he develops any recurrent rectal bleeding. Time Spent with Patient Time attestation: Total time spent providing and/or coordinating discharge services: Discharge coordination time: Greater than 30 minutes Quality: Safe Use of Opioids Does Pt have an Active Cancer Diagnosis on the Problem List?: No Quality: Stroke Does the patient have a stroke diagnosis?: No Physical Exam Vital Signs: Vital Signs: Last Vital Signs Temp 97.7 F 10/16/21 00:07 Pulse 72 10/16/21 00:07 Resp 16 10/16/21 00:07 BP 103/60 10/16/21 00:07 Pulse Ox 98 10/16/21 00:07 BMI result Body Mass Index 28.2 Const: General: cooperative, comfortable, no acute distress, alert and awake Nutritional Appearance: average body habitus Orientation/consciousness: patient oriented x3 Resp: Effort & Inspection: normal respiratory effort and able to speak in complete sentences Cardio: Rate: regular rate Heart sounds: S1 normal heart sound present and S2 normal heart sound present GI: Inspection: No distended Palpation (GI): Soft to palpation and nontender Neuro: General: patient oriented x3 Extrem: General: Yes no pedal edema DS: Data Data Completed and Pending Labs on day of discharge: Laboratory Results - last 24 hr 10/15/21 10/16/21 10/16/21 07:35 05:42 05:42 WBC 11.2 H RBC 3.88 L Hgb 9.0 L Hct 30.3 L MCV 78.1 L MCH 23.2 L MCHC 29.7 L RDW 22.5 H Plt Count 204 MPV 12.3 Absolute Nucleated RBC 0.000 Nucleated RBC % (auto) 0.0 Ferritin 10 L C-Reactive Protein 0.16 Vitamin B12 Folate 10/16/21 05:42 WBC RBC Hgb Hct MCV MCH MCHC RDW Plt Count MPV Absolute Nucleated RBC Nucleated RBC % (auto) Ferritin C-Reactive Protein Vitamin B12 201 Folate 5.5 Discharge Plan Discharge Patient Disposition: Home, Self-Care Discharge Diagnosis: Flare of Crohn's disease Celiac disease Hematochezia Referrals: Monica Iraheta MD [Primary Care Provider] - 1 Week Discharge Medications: New prednisone 10 mg tablet See Taper mg PO DAILY Qty: 50 0RF Taper: Prednisone 40 mg daily for 5 Days and 0 Hour 30 mg daily for 5 Days and 0 Hour 20 mg daily for 5 Days and 0 Hour 10 mg daily for 5 Days and 0 Hour Continued cetirizine 10 mg tablet 1 tab PO DAILY 0RF melatonin 3 mg Tablet 3 mg PO BEDTIME 0RF albuterol sulfate [ProAir HFA] 90 mcg/actuation HFA aerosol inhaler 2 puff PO Q4-6H PRN (Reason: Wheezing) 0RF cholecalciferol (vitamin D3) 25 mcg (1,000 unit) tablet 2 tab PO DAILY 0RF dexlansoprazole [Dexilant] 30 mg capsule,biphase delayed releas 1 cap PO QAM 0RF Discharge Orders: Discharge Order (Routine); Ordered 10/16/21 Ordered By: Octavia Avila Activity on Discharge: As tolerated Stand Alone Forms: Patient Portal Discharge page Other Ambulatory Orders: Complete Blood Count no Diff (Routine) Timeframe: 1 Week Facility: [facility] - Location: Laboratory Ordered By: Octavia Avila Care Plan Goals: see below Health Concerns: rectal bleeding secondary to acute crohns flare Plan of Treatment: take prednisone taper as prescribed call to schedule follow up appointment with GI doctor repeat labs in one week Assessment: see discharge summary
[2021-10-19 12:40] LABS: Immunoglobulin A 287 mg/dL (47-310)
[2021-10-19 21:16] LABS: Transglutaminase IgA 33.7 U/mL
== END 2021-10-16 10:16 | disposition home or self-care (01) | DRG 245 ==
LOC: HO.ED 12:59 → HO.EDOVER 16:51 → HO.S3 10-16 07:32
PROVIDERS: Internal Medicine Gastroenterology; Admitting Provider Student in an Organized Health Care Education/Training Program; Emergency Provider Emergency Medicine; PCP Family Medicine; Visit Provider Physician Assistant Medical
DX: K50.911 Crohn's disease, unspecified, with rectal bleeding (principal); D50.9 Iron deficiency anemia, unspecified; J45.909 Unspecified asthma, uncomplicated; K90.0 Celiac disease; D72.829 Elevated white blood cell count, unspecified; Z20.822 Contact with and (suspected) exposure to COVID-19; Z88.6 Allergy status to analgesic agent; Z88.8 Allergy status to other drugs, medicaments and biological substances; Z91.040 Latex allergy status; Z86.16 Personal history of COVID-19; Z79.52 Long term (current) use of systemic steroids; Z79.899 Other long term (current) drug therapy
CPT/HCPCS: 36415; 74176; 80048; 80076; 81003; 82272; 82607; 82728; 82746; 82784; 83690; 85025; 85027; 86140; 86364; 87635; 96361; 96365; 96375; 99285; J2270; J2920; J2930

== ENCOUNTER 2022-01-18 15:51 | Outpatient (REF) | payer MEDICAID, SELFPAY ==
--- NOTE | ~2022-01-18 | XR_ITS ---
EXAMINATION: XR CHEST CLINICAL INFORMATION: Shortness of breath post Covid COMPARISON: Previous chest x-rays, most recent March 2021 TECHNIQUE: 2 views of the chest were obtained. FINDINGS: No significant abnormality is noted involving the heart, lungs, mediastinum, bony thorax or soft tissues. XR/XR chest 2V IMPRESSION: Unremarkable examination.
== END 2022-01-18 15:52 | disposition home or self-care (01) ==
LOC: HO.LAB 15:51
PROVIDERS: Visit Provider Internal Medicine
DX: R06.02 Shortness of breath (principal); U09.9 Post COVID-19 condition, unspecified
CPT/HCPCS: 71046

== ENCOUNTER 2022-01-28 04:33 | Emergency (ER) | payer MEDICAID, SELFPAY ==
[2022-01-28 04:57] VITALS: BP 131/77; PULSE 74; RESP 20; TEMP 36.4; O2SAT 99; BMI 28.2
== END 2022-01-28 06:33 | disposition left against medical advice (07) ==
PROVIDERS: Emergency Provider Emergency Medicine
DX: R10.9 Unspecified abdominal pain (principal); K50.90 Crohn's disease, unspecified, without complications; K90.0 Celiac disease
CPT/HCPCS: 99281

== ENCOUNTER 2022-08-31 13:24 | Inpatient (IN) | payer MEDICAID, SELFPAY ==
--- NOTE | ~2022-08-31 | US_ITS ---
EXAMINATION: US ABDOMEN COMPLETE CLINICAL INFORMATION: Abdominal pain, history of Crohn's disease. COMPARISON: CT abdomen and pelvis, 10/14/2021 TECHNIQUE: Real-time imaging of the abdominal viscera. FINDINGS: PANCREAS: Imaged pancreas is unremarkable. ABDOMINAL AORTA: The proximal, mid, and distal segments are normal in caliber. INFERIOR VENA CAVA: Visualized portions are normal. LIVER: Mildly heterogeneous echotexture.. There is no intrahepatic biliary duct dilatation seen. GALLBLADDER: Gallbladder stone impacted in the neck of the gallbladder. Wall thickness is at upper limits of normal. No pericholecystic fluid. COMMON BILE DUCT: Normal in caliber measuring 0.3 cm in diameter. RIGHT KIDNEY: No hydronephrosis or renal calculi. The kidney measures 10.7 cm in maximum dimension. LEFT KIDNEY: No hydronephrosis or calculi. The kidney measures 11.4 cm in maximum dimension. SPLEEN: Normal. The spleen measures 10.7 cm in maximum dimension. FREE FLUID: None. US/US abdomen complete IMPRESSION: Impacted stone of the gallbladder neck. No evidence of acute cholecystitis. Mildly heterogeneous echotexture of the liver.
--- NOTE | ~2022-08-31 | CT_ITS ---
EXAMINATION: CT ABDOMEN AND PELVIS WITH CONTRAST CLINICAL INFORMATION: Abdominal pain COMPARISON: CT of 10/14/2021 TECHNIQUE: Multidetector volumetric images were obtained from the superior aspect of the liver through the pubic symphysis following administration 85 mL of Omnipaque 350 intravenous contrast. Sagittal and coronal reformatted images were obtained on the technologist's workstation. Oral contrast: No This CT examination was performed using dose optimization techniques as appropriate, variously including the following: *Automated exposure control *Adjustment of mA and/or kV according to patient size (this includes techniques or standardized protocols for targeted exams where dose is matched to indication/reason for exam; i.e. extremities or head) *Use of iterative reconstruction technique DLP: 473 mGy-cm FINDINGS: LUNG BASES: The visualized lung bases are unremarkable. LIVER, GALLBLADDER, AND BILIARY TREE: The liver is normal in size, shape, and attenuation. No focal hepatic lesion or biliary ductal dilatation is present. A 15 mm calculus is again evident within the gallbladder. No wall thickening or pericholecystic edema is detected. PANCREAS: Unremarkable. SPLEEN: Unremarkable. ADRENAL GLANDS: Unremarkable. KIDNEYS AND URETERS: The kidneys are normal in size, shape, and attenuation. No hydronephrosis, hydroureter, or calculi seen. No perinephric stranding. BLADDER: Unremarkable. GASTROINTESTINAL TRACT: The patient is again noted to have undergone small bowel resection with chain sutures in the epigastric region. There is a dilated loop of small bowel just proximal to the surgical staple anastomotic line, in the epigastrium, measuring up to 4.1 cm in diameter. At the pelvic brim, there is an additional dilated loop of small bowel adjacent to surgical jose, measuring up to 3.6 cm, with equalization of internal contents. No significant perienteric infiltration is evident. There is no free air., adjacent to the surgical anastomotic line, there is a loop of small bowel which although not dilated appears fecalized, and is more distended than on 10/14/2021 The distal ileum is collapsed, but demonstrates submucosal lipomatous infiltration, consistent with inflammatory bowel disease, particularly Crohn's disease. The rectum is distended with fecal material. ABDOMINAL WALL: A fat-containing anterior abdominal wall hernias are again evident, unchanged, LYMPH NODES: No abdominal or pelvic adenopathy or ascites is evident. VASCULAR: Unremarkable. PELVIC VISCERA: Unremarkable. OSSEOUS STRUCTURES: Unilateral right sacroiliitis is noted, also likely associated with the patient's known inflammatory bowel disease. CT/CT abdomen pelvis w IV con IMPRESSION: 1. Multiple segmental areas of dilated small bowel, adjacent to surgical anastomoses, indicative of partial small bowel obstructions. Whether the obstructions are related to stricture from Crohn's disease or postsurgical adhesion or stricture cannot be determined. 2. Thickening and submucosal lipomatosis of the terminal ileum, consistent with the patient's Crohn's disease. 3. Unilateral right sacroiliitis, consistent with inflammatory bowel disease. 4. Cholelithiasis. Fleischner guidelines were followed.
[2022-08-31 13:45] VITALS: BP 120/74; PULSE 82; RESP 18; TEMP 36.7; O2SAT 100; BMI 26.6
--- NOTE | 2022-08-31 13:45 | ED_ITS ---
HPI - Abdominal Pain General Chief Complaint: Abdominal Pain <YANELY Zheng - Last Filed: 08/31/22 17:00> Stated Complaint: Upper abd pain <YANELY Zheng - Last Filed: 08/31/22 17:00> Time Seen by Provider: 08/31/22 16:46 <YANELY Zheng - Last Filed: 08/31/22 17:00> Source: patient <Tuan Zamora MD - Last Filed: 08/31/22 19:53> Mode of arrival: ambulatory <Tuan Zamora MD - Last Filed: 08/31/22 19:53> Limitations: no limitations <Tuan Zamora MD - Last Filed: 08/31/22 19:53> History of Present Illness HPI narrative: 42-year-old male who presents emergency department for evaluation of right upper quadrant and epigastric abdominal pain which radiates to his back. Patient states he is breakfast at around 09:00 hours. He ate scrambled eggs and hash browns. Approximately 1 hour later at around 10:00 hours he developed right upper quadrant pain. He states the pain is a squeezing sensation. The pain is been constant since onset but waxes and wanes in intensity. The pain is currently 8/10. He also feels bloated. He states that his last bowel movement was yesterday evening and was normal. Patient states that he also developed epigastric pain which radiates to his right flank and right back. He denies shoulder pain. Patient had nausea with 1 episode of vomiting. Review of systems was positive for cough x2 days. Diarrhea, black stools, bloody stools, myalgias arthralgias. Patient does have a history of Crohn's disease he states this pain is different than his Crohn's disease pain which is usually in his lower abdomen and is a squeezing sensation. Patient states that he has had bowel obstructions in the past and has had a small-bowel resection surgery to relieve a small-bowel obstruction RME was reviewed by me. <Tuan Zamora MD - Last Filed: 08/31/22 19:53> Related Data Home Medications: Home Medications Medication Instructions Recorded Confirmed dexlansoprazole 30 mg 1 cap PO QAM 10/14/21 08/31/22 capsule,biphase delayed release (Dexilant) <YANELY Zheng - Last Filed: 08/31/22 17:00> Allergies/Adverse Reactions: Allergies Allergy/AdvReac Type Severity Reaction Status Date / Time aspirin [Aspirin] Allergy Intermediate TACHYCARDIA, Verified 07/01/20 06:57 palpitations, tachycardia latex [LATEX] Allergy Intermediate RASH Verified 10/14/21 10:29 diphenhydramine AdvReac Intermediate TACHYCARDIA Verified 10/14/21 10:29 [From BENADRYL] AND CHNAGES IN BEHAVOR <YANELY Zheng - Last Filed: 08/31/22 17:00> Review of Systems Review of Systems Yes all other systems are reviewed and are negative <Tuan Zamora MD - Last Filed: 08/31/22 19:53> [facility] Past Medical History [facility] Narrative: Past medical history: Reviewed below. Patient has a history of celiac disease, chronic anemia, GI bleed, hematochezia. Past surgical history: Patient states he has had 2 surgeries 1 or a small-bowel resection and a 2nd 1 to relieve a small-bowel obstruction. Social history: He denies tobacco, alcohol and drug use. <Tuan Zamora MD - Last Filed: 08/31/22 19:53> Medical History: Medical History Abdominal pain despite therapy for Crohn's disease Asthma COVID-19 virus infection Crohn's disease <YANELY Zheng - Last Filed: 08/31/22 17:00> Surgical History: Surgical History H/O abdominal surgery <YANELY Zheng - Last Filed: 08/31/22 17:00> Family History Family History: Family History Father Hypertension Mother Diabetes Maternal Grandfather Renal cancer Brother In good health Brother In good health Sister In good health Son In good health Son In good health <YANELY Zheng - Last Filed: 08/31/22 17:00> Social History Social History: Social History Alcohol intake: never Patient Tobacco Use Status: Never used Tobacco Advance Directives: No Advance Directives Information Provided: Yes service: No Current occupational status: employed <YANELY Zheng - Last Filed: 08/31/22 17:00> Physical Exam ED Vital Signs: Vital Signs - 24 hr 08/31/22 13:45 08/31/22 18:12 Temperature 98.1 F 98 F Pulse Rate 82 70 Respiratory Rate 18 18 Blood Pressure 120/74 128/69 Pulse Oximetry 100 99 Oxygen Delivery Method Room Air Room Air BMI result Body Mass Index 26.6 <YANELY Zheng - Last Filed: 08/31/22 17:00> Vital Signs - 24 hr 08/31/22 13:45 08/31/22 18:12 Temperature 98.1 F 98 F Pulse Rate 82 70 Respiratory Rate 18 18 Blood Pressure 120/74 128/69 Pulse Oximetry 100 99 Oxygen Delivery Method Room Air Room Air BMI result Body Mass Index 26.6 <Tuan Zamora MD - Last Filed: 08/31/22 19:53> Const General: cooperative and no acute distress <Tuan Zamora MD - Last Filed: 08/31/22 19:53> Orientation/consciousness: oriented to person and oriented to place <Tuan Zamora MD - Last Filed: 08/31/22 19:53> Limitations: no limitations <Tuan Zamora MD - Last Filed: 08/31/22 19:53> HENMT Head: Yes normal to inspection, Yes normocephalic and Yes atraumatic <Tuan Zamora MD - Last Filed: 08/31/22 19:53> Ears: external ears normal <Tuan Zamora MD - Last Filed: 08/31/22 19:53> General nose exam: Normal external nose present <Tuan Zamora MD - Last Filed: 08/31/22 19:53> Face and sinus: Yes normal facial exam <Tuan Zamora MD - Last Filed: 08/31/22 19:53> Mouth: Normal oral and palatal mucosa present <Tuan Zamora MD - Last Filed: 08/31/22 19:53> Throat: Yes posterior oropharynx normal <MD Rochelle Wolff Last Filed: 08/31/22 19:53> Eyes General: appearance normal, both eyes and all related structures <MD Rochelle Wolff Last Filed: 08/31/22 19:53> Pupils: Equal, round and reactive pupils present <MD Rochelle Wolff Last Filed: 08/31/22 19:53> Neck Neck: Yes normal visual inspection, Yes no lymphadenopathy, Yes trachea midline and Yes supple <MD Rochelle Wolff Last Filed: 08/31/22 19:53> Chest Chest palpation & inspection: normal inspection of the chest and normal palpation of entire chest wall <MD Rochelle Wolff Last Filed: 08/31/22 19:53> Resp Effort & Inspection: normal respiratory effort and able to speak in complete sentences <MD Rochelle Wolff Last Filed: 08/31/22 19:53> Auscultation: clear to auscultation bilaterally <MD Rochelle Wolff Last Filed: 08/31/22 19:53> Cardio Rate: regular rate <MD Rochelle Wolff Last Filed: 08/31/22 19:53> Rhythm: regular rhythm <MD Rochelle Wolff Last Filed: 08/31/22 19:53> Heart sounds: S1 normal heart sound present, S2 normal heart sound present and no murmurs <MD Rochelle Wolff Last Filed: 08/31/22 19:53> GI Inspection: Yes normal to inspection <MD Rochelle Wolff Last Filed: 08/31/22 19:53> Palpation (GI): Soft to palpation, Tenderness to palpation present (GI) in the epigastrum (Moderate), in the RUQ (Moderate) and Martinez's sign positive (Moderate) and no guarding <MD Rochelle Wolff Last Filed: 08/31/22 19:53> Auscultation: normal bowel sounds <MD Rochelle Wolff Last Filed: 08/31/22 19:53> General: Yes no CVA tenderness <Tuan Zamora MD - Last Filed: 08/31/22 19:53> Back/Spine/Pelvis Back: no CVA tenderness <Tuan Zamora MD - Last Filed: 08/31/22 19:53> Skin General skin exam: no rashes or lesions noted <Tuan Zamora MD - Last Filed: 08/31/22 19:53> Neuro General: oriented to person and oriented to place <Tuan Zamora MD - Last Fi led: 08/31/22 19:53> Cranial nerves: Yes CN's II-XII intact bilaterally and Yes Equal, round and reactive pupils present <Tuan Zamora MD - Last Filed: 08/31/22 19:53> Cognition (Neuro): normal cognition <Tuan Zamora MD - Last Filed: 08/31/22 19:53> Motor exam (neuro): 5/5 motor strength present throughout <Tuan Zamora MD - Last Filed: 08/31/22 19:53> Extrem General: Yes normal to inspection <Tuan Zamora MD - Last Filed: 08/31/22 19:53> Psych Appearance: grossly normal <Tuan Zamora MD - Last Filed: 08/31/22 19:53> Speech and movement: Normal speech and movement present <Tuan Zamora MD - Last Filed: 08/31/22 19:53> Affect: normal affect <Tuan Zamora MD - Last Filed: 08/31/22 19:53> Attitude: cooperative <Tuan Zamora MD - Last Filed: 08/31/22 19:53> Course Course Course Narrative: DENNIS- 13:46pm - 42yoM who is Japanese-speaking with a PMHx of Crohn's disease currently on Remicade injection every 6 weeks who is presenting to the ER with complaints of few hours of upper abdominal pain with associated nausea. Reports abdominal pain is radiating to his back. Denies any fevers, cough, nasal congestion, chest pain or shortness of breath, vomiting, diarrhea constipation, dysuria or any other symptoms complaints or concerns at this time. Plan: Labs, UA, abdominal ultrasound ordered at this time patient to be seen in the ED for further evaluation treatment. 17pm - I discussed this case with Dr. Beckford he recommended a CT scan with IV contrast to further evaluate the impacted gall stone that was seen on ultrasound therefore CT scan with IV contrast ordered at this time. <YANELY Zheng - Last Filed: 08/31/22 17:00> Medical Decision Making Medical Decision Making MDM Narrative: 42-year-old male with a history of Crohn's disease, chronic anemia, small- bowel obstruction, small-bowel resection who presents emergency department for evaluation of sudden onset of right upper quadrant pain at 10:00 hours approximately 1 hour after eating breakfast (as scrambled eggs and hash browns). The pain is located in the right upper quadrant and the epigastric area , the pain is constant since onset, the pain does radiate to his back, 8/10. Pain was associated with nausea, vomiting and a bloated sensation. Last BM was last night. Pain is different from his Crohn disease pain. This is 1st episode of this type of pain. Vital signs were normal. Examination did reveal right upper quadrant and epigastric tenderness with a positive Martinez sign. Provider at triage ordered CBC, CMP, magnesium, PT/INR, PTT, lipase, urinalysis, CRP, right upper quadrant ultrasound. Patient was treated from triage with Tylenol 975 mg orally and Zofran ODT 4 mg with only minimal improvement of his pain but significant improvement of his nausea and vomiting 172: My interpretation of patient's laboratory evaluation is as follows: WBC low-similar low values in the past. Differential was normal with 65 neutrophils and 23 lymphocytes. Anemia with an H&H of 7.6 and 27 with a low MCV 69-this is chronic. CMP was normal. COVID-19 and influenza were negative. PT was normal PTT and lipase are pending Ultrasound of an impacted stone of the gallbladder neck. No evidence of acute cholecystitis, mild heterogeneous echotexture of the liver . The provider in triage did discuss these findings and the patient's presentation with the covering surgeon, Dr. Beckford and he requested a CT scan of the abdomen pelvis with IV contrast which was ordered. Patient was ordered to get an IV insert, normal saline x1 L, morphine 4 mg IV and Zofran 4 mg IV 1947: CT scan of the abdomen pelvis IV contrast did not reveal any acute inflammation around the gallbladder or gallbladder wall thickening, the patient may have evidence for small bowel obstruction. I did discuss the patient with the covering surgeon Dr. Beckford was already seen the patient and has admitted the patient. The patient's gallstone is increased in size and is sitting in the neck of the gallbladder, patient's pain today is clinically consistent with biliary colic secondary to a large gallbladder neck gallstones and small-bowel obstruction. <Tuan Zamora MD - Last Filed: 08/31/22 19:53> Differential Diagnosis Differential diagnosis includes was not limited to bowel obstruction, biliary colic, pancreatitis, Crohn's flare-up, gastritis, viral syndrome <Tuan Zamora MD - Last Filed: 08/31/22 19:53> Lab Data Result Diagrams: 08/31/22 14:02 08/31/22 14:02 <YANELY Zheng - Last Filed: 08/31/22 17:00> Labs: Lab Results 08/31/22 08/31/22 08/31/22 Range/Units 14:02 14:02 14:02 WBC 4.1 L (4.8-10.8) X10*3/uL RBC 4.01 L (4.60-5.80) X10*6/uL Hgb 7.6 L (14.0-18.0) g/dl Hct 27.7 L (42.0-52.0) % MCV 69.1 L (80.0-98.0) fL MCH 19.0 L (27.0-33.0) pg MCHC 27.4 L (31.0-36.0) g/dl RDW 18.8 H (11.0-16.0) % Plt Count 237 (160-400) X10*3/uL MPV 11.3 (9.4-12.4) fL Immature Gran % (Auto) 0.2 (0.0-0.4) % Neut % (Auto) 65.6 (45-73) % Lymph % (Auto) 23.0 (20-40) % [place] % (Auto) 10.2 (2-11) % Eos % (Auto) 0.5 (0-4) % Baso % (Auto) 0.5 (0-2) % Lymph # (Auto) 1.0 L (1.2-4.9) X10*3/uL [place] # (Auto) 0.4 (0.1-1.2) X10*3/uL Eos # (Auto) 0.0 (0.0-0.4) X10*3/uL Baso # (Auto) 0.0 (0.0-0.2) X10*3/uL Abs Immat Gran (auto) 0.01 (0.00-0.03) X10*3/uL Absolute Neuts (auto) 2.7 (2.0-8.3) x10*3/uL Absolute Nucleated RBC 0.000 (0.0-0.012) X10*3/uL Nucleated RBC % (auto) 0.0 (0.0-0.2) /100WBC ESR 22 H (0-15) MM/HR PT 11.9 (10.0-13.1) SEC INR 1.0 (0.9-1.1) APTT 28.4 (26.0-36.4) SEC Sodium (135-145) mmol/L Potassium (3.3-5.1) mmol/L Chloride (96-108) mmol/L Carbon Dioxide (22-29) mmol/L Anion Gap (12-20) BUN (9-16) mg/dL Creatinine (0.5-1.4) mg/dL Estim Creat Clear Calc Estimated GFR Random Glucose (60-115) mg/dL Calcium (8.4-10.2) mg/dL Magnesium (1.6-2.6) mg/dL Total Bilirubin (0.0-1.0) mg/dL AST (5-37) U/L ALT (0-40) U/L Alkaline Phosphatase (39-117) U/L C-Reactive Protein (< or = 0.50) mg/dL Total Protein (6.5-8.0) g/dL Albumin (3.5-5.0) g/dL Lipase (8-78) U/L Urine Color Urine Appearance Urine pH (5.0-9.0) Ur Specific [place] (1.005-1.025) Urine Protein (Neg-Trace) mg/dL Urine Glucose (UA) (Negative) mg/dL Urine Ketones (Negative) mg/dL Urine Blood (Negative) Urine Nitrite (Negative) Ur Leukocyte Esterase (Negative) Influenza Type A (PCR) (Negative) Influenza Type B (PCR) (Negative) RSV RNA Qual (PCR) (Negative) SARS-CoV-2 RNA (RT-PCR) (Negative) 08/31/22 08/31/22 08/31/22 Range/Units 14:02 14:02 18:18 WBC (4.8-10.8) X10*3/uL RBC (4.60-5.80) X10*6/uL Hgb (14.0-18.0) g/dl Hct (42.0-52.0) % MCV (80.0-98.0) fL MCH (27.0-33.0) pg MCHC (31.0-36.0) g/dl RDW (11.0-16.0) % Plt Count (160-400) X10*3/uL MPV (9.4-12.4) fL Immature Gran % (Auto) (0.0-0.4) % Neut % (Auto) (45-73) % Lymph % (Auto) (20-40) % [place] % (Auto) (2-11) % Eos % (Auto) (0-4) % Baso % (Auto) (0-2) % Lymph # (Auto) (1.2-4.9) X10*3/uL [place] # (Auto) (0.1-1.2) X10*3/uL Eos # (Auto) (0.0-0.4) X10*3/uL Baso # (Auto) (0.0-0.2) X10*3/uL Abs Immat Gran (auto) (0.00-0.03) X10*3/uL Absolute Neuts (auto) (2.0-8.3) x10*3/uL Absolute Nucleated RBC (0.0-0.012) X10*3/uL Nucleated RBC % (auto) (0.0-0.2) /100WBC ESR (0-15) MM/HR PT (10.0-13.1) SEC INR (0.9-1.1) APTT (26.0-36.4) SEC Sodium 140 (135-145) mmol/L Potassium 4.1 (3.3-5.1) mmol/L Chloride 108 (96-108) mmol/L Carbon Dioxide 26 (22-29) mmol/L Anion Gap 10 L (12-20) BUN 15 (9-16) mg/dL Creatinine 0.94 (0.5-1.4) mg/dL Estim Creat Clear Calc 94.2 Estimated GFR > 60 Random Glucose 94 (60-115) mg/dL Calcium 8.6 (8.4-10.2) mg/dL Magnesium 2.0 (1.6-2.6) mg/dL Total Bilirubin 0.4 (0.0-1.0) mg/dL AST 17 (5-37) U/L ALT 12 (0-40) U/L Alkaline Phosphatase 87 (39-117) U/L C-Reactive Protein 0.26 (< or = 0.50) mg/dL Total Protein 6.5 (6.5-8.0) g/dL Albumin 4.0 (3.5-5.0) g/dL Lipase 46 (8-78) U/L Urine Color Yellow Urine Appearance Clear Urine pH 6.5 (5.0-9.0) Ur Specific [place] >= 1.030 H (1.005-1.025) Urine Protein Negative (Neg-Trace) mg/dL Urine Glucose (UA) Negative (Negative) mg/dL Urine Ketones Negative (Negative) mg/dL Urine Blood Negative (Negative) Urine Nitrite Negative (Negative) Ur Leukocyte Esterase Negative (Negative) Influenza Type A (PCR) NEGATIVE (Negative) Influenza Type B (PCR) NEGATIVE (Negative) RSV RNA Qual (PCR) NEGATIVE (Negative) SARS-CoV-2 RNA (RT-PCR) NEGATIVE (Negative) <YANELY Zheng - Last Filed: 08/31/22 17:00> Lab Results 08/31/22 08/31/22 08/31/22 Range/Units 14:02 14:02 14:02 WBC 4.1 L (4.8-10.8) X10*3/uL RBC 4.01 L (4.60-5.80) X10*6/uL Hgb 7.6 L (14.0-18.0) g/dl Hct 27.7 L (42.0-52.0) % MCV 69.1 L (80.0-98.0) fL MCH 19.0 L (27.0-33.0) pg MCHC 27.4 L (31.0-36.0) g/dl RDW 18.8 H (11.0-16.0) % Plt Count 237 (160-400) X10*3/uL MPV 11.3 (9.4-12.4) fL Immature Gran % (Auto) 0.2 (0.0-0.4) % Neut % (Auto) 65.6 (45-73) % Lymph % (Auto) 23.0 (20-40) % [place] % (Auto) 10.2 (2-11) % Eos % (Auto) 0.5 (0-4) % Baso % (Auto) 0.5 (0-2) % Lymph # (Auto) 1.0 L (1.2-4.9) X10*3/uL [place] # (Auto) 0.4 (0.1-1.2) X10*3/uL Eos # (Auto) 0.0 (0.0-0.4) X10*3/uL Baso # (Auto) 0.0 (0.0-0.2) X10*3/uL Abs Immat Gran (auto) 0.01 (0.00-0.03) X10*3/uL Absolute Neuts (auto) 2.7 (2.0-8.3) x10*3/uL Absolute Nucleated RBC 0.000 (0.0-0.012) X10*3/uL Nucleated RBC % (auto) 0.0 (0.0-0.2) /100WBC ESR 22 H (0-15) MM/HR PT 11.9 (10.0-13.1) SEC INR 1.0 (0.9-1.1) APTT 28.4 (26.0-36.4) SEC Sodium (135-145) mmol/L Potassium (3.3-5.1) mmol/L Chloride (96-108) mmol/L Carbon Dioxide (22-29) mmol/L Anion Gap (12-20) BUN (9-16) mg/dL Creatinine (0.5-1.4) mg/dL Estim Creat Clear Calc Estimated GFR Random Glucose (60-115) mg/dL Calcium (8.4-10.2) mg/dL Magnesium (1.6-2.6) mg/dL Total Bilirubin (0.0-1.0) mg/dL AST (5-37) U/L ALT (0-40) U/L Alkaline Phosphatase (39-117) U/L C-Reactive Protein (< or = 0.50) mg/dL Total Protein (6.5-8.0) g/dL Albumin (3.5-5.0) g/dL Lipase (8-78) U/L Urine Color Urine Appearance Urine pH (5.0-9.0) Ur Specific [place] (1.005-1.025) Urine Protein (Neg-Trace) mg/dL Urine Glucose (UA) (Negative) mg/dL Urine Ketones (Negative) mg/dL Urine Blood (Negative) Urine Nitrite (Negative) Ur Leukocyte Esterase (Negative) Influenza Type A (PCR) (Negative) Influenza Type B (PCR) (Negative) RSV RNA Qual (PCR) (Negative) SARS-CoV-2 RNA (RT-PCR) (Negative) 08/31/22 08/31/22 08/31/22 Range/Units 14:02 14:02 18:18 WBC (4.8-10.8) X10*3/uL RBC (4.60-5.80) X10*6/uL Hgb (14.0-18.0) g/dl Hct (42.0-52.0) % MCV (80.0-98.0) fL MCH (27.0-33.0) pg MCHC (31.0-36.0) g/dl RDW (11.0-16.0) % Plt Count (160-400) X10*3/uL MPV (9.4-12.4) fL Immature Gran % (Auto) (0.0-0.4) % Neut % (Auto) (45-73) % Lymph % (Auto) (20-40) % [place] % (Auto) (2-11) % Eos % (Auto) (0-4) % Baso % (Auto) (0-2) % Lymph # (Auto) (1.2-4.9) X10*3/uL [place] # (Auto) (0.1-1.2) X10*3/uL Eos # (Auto) (0.0-0.4) X10*3/uL Baso # (Auto) (0.0-0.2) X10*3/uL Abs Immat Gran (auto) (0.00-0.03) X10*3/uL Absolute Neuts (auto) (2.0-8.3) x10*3/uL Absolute Nucleated RBC (0.0-0.012) X10*3/uL Nucleated RBC % (auto) (0.0-0.2) /100WBC ESR (0-15) MM/HR PT (10.0-13.1) SEC INR (0.9-1.1) APTT (26.0-36.4) SEC Sodium 140 (135-145) mmol/L Potassium 4.1 (3.3-5.1) mmol/L Chloride 108 (96-108) mmol/L Carbon Dioxide 26 (22-29) mmol/L Anion Gap 10 L (12-20) BUN 15 (9-16) mg/dL Creatinine 0.94 (0.5-1.4) mg/dL Estim Creat Clear Calc 94.2 Estimated GFR > 60 Random Glucose 94 (60-115) mg/dL Calcium 8.6 (8.4-10.2) mg/dL Magnesium 2.0 (1.6-2.6) mg/dL Total Bilirubin 0.4 (0.0-1.0) mg/dL AST 17 (5-37) U/L ALT 12 (0-40) U/L Alkaline Phosphatase 87 (39-117) U/L C-Reactive Protein 0.26 (< or = 0.50) mg/dL Total Protein 6.5 (6.5-8.0) g/dL Albumin 4.0 (3.5-5.0) g/dL Lipase 46 (8-78) U/L Urine Color Yellow Urine Appearance Clear Urine pH 6.5 (5.0-9.0) Ur Specific [place] >= 1.030 H (1.005-1.025) Urine Protein Negative (Neg-Trace) mg/dL Urine Glucose (UA) Negative (Negative) mg/dL Urine Ketones Negative (Negative) mg/dL Urine Blood Negative (Negative) Urine Nitrite Negative (Negative) Ur Leukocyte Esterase Negative (Negative) Influenza Type A (PCR) NEGATIVE (Negative) Influenza Type B (PCR) NEGATIVE (Negative) RSV RNA Qual (PCR) NEGATIVE (Negative) SARS-CoV-2 RNA (RT-PCR) NEGATIVE (Negative) <Tuan Zamora MD - Last Filed: 08/31/22 19:53> Medications Administered Discontinued Medications Generic Name Dose Route Start Last Admin Trade Name Freq PRN Reason Stop Dose Admin Acetaminophen 975 mg 08/31/22 15:21 08/31/22 15:25 Acetaminophen 325 Mg Tablet PO 08/31/22 15:22 975 mg ONCE ONE Administration Iohexol 100 ml 08/31/22 17:17 08/31/22 17:17 Iohexol 350 Mg/Ml 100 Ml Infus..Btl IV 08/31/22 17:18 85 ml ONCE ONE Administration Ondansetron HCl 4 mg 08/31/22 15:21 08/31/22 15:25 Ondansetron Odt 4 Mg Tab.Rapdis TRANSLINGU 08/31/22 15:22 4 mg ONCE ONE Administration <YANELY Zheng - Last Filed: 08/31/22 17:00> Medications Administered Discontinued Medications Generic Name Dose Route Start Last Admin Trade Name Freq PRN Reason Stop Dose Admin Acetaminophen 975 mg 08/31/22 15:21 08/31/22 15:25 Acetaminophen 325 Mg Tablet PO 08/31/22 15:22 975 mg ONCE ONE Administration Iohexol 100 ml 08/31/22 17:17 08/31/22 17:17 Iohexol 350 Mg/Ml 100 Ml Infus..Btl IV 08/31/22 17:18 85 ml ONCE ONE Administration Ondansetron HCl 4 mg 08/31/22 15:21 08/31/22 15:25 Ondansetron Odt 4 Mg Tab.Rapdis TRANSLINGU 08/31/22 15:22 4 mg ONCE ONE Administration <Tuan Zamora MD - Last Filed: 08/31/22 19:53> Discharge Plan Discharge Prescriptions: No Action dexlansoprazole [Dexilant] 30 mg capsule,biphase delayed releas 1 cap PO QAM <YANELY Zheng - Last Filed: 08/31/22 17:00>
[2022-08-31 14:23] LABS: MANUAL DIFF FLAG NO
[2022-08-31 14:28] LABS: Basophils Percent Auto 0.5 % (0-2); Eosinophils Percent Auto 0.5 % (0-4); Hematocrit 27.7 % (42.0-52.0); Hemoglobin 7.6 g/dl (14.0-18.0); Imm Gran Abs Auto 0.01 X10*3/uL (0.00-0.03); Imm Gran Pct Auto 0.2 % (0.0-0.4); Mean Corpuscular HGB Conc 27.4 g/dl (31.0-36.0); Mean Corpuscular Volume 69.1 fL (80.0-98.0); Mean Platelet Volume 11.3 fL (9.4-12.4); Monocytes Absolute Auto 0.4 X10*3/uL (0.1-1.2); Monocytes Percent Auto 10.2 % (2-11); Neutrophils Absolute Auto 2.7 x10*3/uL (2.0-8.3); Neutrophils Percent Auto 65.6 % (45-73); Platelet Count 237 X10*3/uL (160-400); Red Blood Count 4.01 X10*6/uL (4.60-5.80); Red Cell Distribution Width 18.8 % (11.0-16.0); White Blood Count 4.1 X10*3/uL (4.8-10.8)
[2022-08-31 14:43] LABS: Prothrombin Time 11.9 SEC (10.0-13.1)
[2022-08-31 14:50] LABS: Alanine Aminotransferase 12 U/L (0-40); Alkaline Phosphatase 87 U/L (39-117); Anion Gap 10 (12-20); Aspartate Amino Transferase 17 U/L (5-37); Bilirubin Total 0.4 mg/dL (0.0-1.0); Blood Urea Nitrogen 15 mg/dL (9-16); C Reactive Protein 0.26 mg/dL (< or = 0.50); Calcium 8.6 mg/dL (8.4-10.2); Carbon Dioxide 26 mmol/L (22-29); Chloride 108 mmol/L (96-108); Creatinine Clr Calc Pharmacy 94.2; Estimated Glomerular Filt Rate > 60; Glucose Random 94 mg/dL (60-115); Potassium 4.1 mmol/L (3.3-5.1); Sodium 140 mmol/L (135-145); Total Protein 6.5 g/dL (6.5-8.0)
[2022-08-31 15:12] LABS: Influenza A PCR NEGATIVE (Negative); Influenza B PCR NEGATIVE (Negative); Resp Syncy Virus RNA Qual PCR NEGATIVE (Negative); SARS COV2 PCR INHOUSE NEGATIVE (Negative)
[2022-08-31 15:14] LABS: Erythrocyte Sedimentation Rate 22 MM/HR (0-15)
[2022-08-31] MEDS: Acetaminophen 325 MG TABLET 975 MG PO (15:25)
[2022-08-31] MEDS: Ondansetron ODT 4 MG TAB.RAPDIS TRANSLINGU (15:25)
[2022-08-31 17:06] LABS: Partial Thromboplastin Time 28.4 SEC (26.0-36.4)
[2022-08-31] MEDS: 0.9 % Sodium Chloride 1,000 ML 999 ML IV (17:13)
[2022-08-31] MEDS: iohexoL 350 MG/ML 100 ML INFUS..BTL IV (17:17)
[2022-08-31 17:50] LABS: Lipase 46 U/L (8-78)
[2022-08-31 18:12] VITALS: BP 128/69; PULSE 70; RESP 18; TEMP 36.6; O2SAT 99
--- NOTE | 2022-08-31 18:22 | P.HPGS_ITS ---
History of Present Illness History of Present Illness Date of Service: 08/31/22 Chief complaint: Upper abd pain Narrative: Brian Hsieh is a 42 year old male well known to the service with a previous history of Crohn's disease, with prior history of small-bowel obstructions due to adhesions now presenting with complaints of abdominal pain in the epigastrium and right upper quadrant radiating to the back. The pain began today after eating scrambled eggs . The pain began the epigastrium in gradually radiated into the back. He denies a previous history of similar pain. He feels the pain is different than his previous Crohn's pain. He reports some nausea without vomiting. He denies anorexia, fever, chills, diarrhea, or constipation. He has had numerous surgical procedures further Crohn's disease. Review of Systems Review of Systems: Yes all other systems are reviewed and are negative Constitutional: Constitutional: Denies anorexia, Denies chills and Denies fever(s) Cardiovascular: Cardiovascular: Denies chest pain and Denies irregular heart rhythm Respiratory: Respiratory: Denies no additional respiratory complaints, Denies cough and Denies stridor Gastrointestinal: Gastrointestinal: Reports as per HPI, Reports abdominal pain, Denies diarrhea, Reports nausea, Denies vomiting and Denies hematemesis Musculoskeletal: Musculoskeletal: Reports no additional musculoskeletal complaints PMFSH Past Medical History Medical History Abdominal pain despite therapy for Crohn's disease Asthma COVID-19 virus infection Crohn's disease Family History Family History Father Hypertension Mother Diabetes Maternal Grandfather Renal cancer Brother In good health Brother In good health Sister In good health Son In good health Son In good health Surgical History Surgical History H/O abdominal surgery Social History Social History Alcohol intake: never Patient Tobacco Use Status: Never used Tobacco Advance Directives: No Advance Directives Information Provided: Yes service: No Current occupational status: employed Meds Allergies Allergy/AdvReac Type Severity Reaction Status Date / Time aspirin [Aspirin] Allergy Intermediate TACHYCARDIA, Verified 07/01/20 06:57 palpitations, tachycardia latex [LATEX] Allergy Intermediate RASH Verified 10/14/21 10:29 diphenhydramine AdvReac Intermediate TACHYCARDIA Verified 10/14/21 10:29 [From BENADRYL] AND CHNAGES IN BEHAVOR Home Medications Medication Instructions Recorded Confirmed Last Taken Type albuterol sulfate 90 mcg/actuation 2 puff PO Q4-6H PRN Wheezing 10/14/21 10/14/21 Unknown History aerosol inhaler (ProAir HFA) cetirizine 10 mg tablet 1 tab PO DAILY 10/14/21 10/14/21 10/13/21 History cholecalciferol (vitamin D3) 25 2 tab PO DAILY 10/14/21 10/14/21 10/13/21 History mcg (1,000 unit) tablet dexlansoprazole 30 mg 1 cap PO QAM 10/14/21 10/14/21 10/13/21 History capsule,biphase delayed release (Dexilant) melatonin 3 mg tablet 3 mg PO BEDTIME 10/14/21 10/14/21 10/13/21 History Physical Exam Vital Signs: Vital Signs: Last Vital Signs Temp 98 F 08/31/22 18:12 Pulse 70 08/31/22 18:12 Resp 18 08/31/22 18:12 BP 128/69 08/31/22 18:12 Pulse Ox 99 08/31/22 18:12 O2 Del Method Room Air 08/31/22 18:12 BMI result Body Mass Index 26.6 Const: General: cooperative and no acute distress Nutritional Appearance: well nourished Orientation/consciousness: patient oriented x3 Limitations: no limitations HEENT: Head: Yes normocephalic and Yes atraumatic Ears: hearing grossly normal bilaterally Resp: Effort & Inspection: normal respiratory effort, no audible wheezes, no cough and no respiratory distress Cardio: Jugular venous distension: no JVD GI: Inspection: Yes normal to inspection Palpation (GI): Soft to palpation, Tenderness to palpation present (GI) in the RUQ and Martinez's sign positive, no g uarding and not rigid Abdomen image: 1. Previous lower abdominal incision starting from just above the umbilicus Skin: Other: Warm, dry, no rash Neuro: General: patient oriented x3 Extrem: General: Yes no clubbing, cyanosis or edema Results Results Labs: Short CBC 08/31/22 Range/Units 14:02 WBC 4.1 L (4.8-10.8) X10*3/uL Hgb 7.6 L (14.0-18.0) g/dl Hct 27.7 L (42.0-52.0) % Plt Count 237 (160-400) X10*3/uL BMP 08/31/22 14:02 Sodium 140 Potassium 4.1 Chloride 108 Carbon Dioxide 26 BUN 15 Creatinine 0.94 Calcium 8.6 Liver Function 08/31/22 Range/Units 14:02 Total Bilirubin 0.4 (0.0-1.0) mg/dL AST 17 (5-37) U/L ALT 12 (0-40) U/L Alkaline Phosphatase 87 (39-117) U/L Albumin 4.0 (3.5-5.0) g/dL Assessment and Plan (1) Cholecystitis, acute with cholelithiasis: Qualifiers: Biliary obstruction: with biliary obstruction Qualified Code(s): K80.01 - Calculus of gallbladder with acute cholecystitis with obstruction Status: Acute Plan 42-year-old male patient presenting with a sudden onset of abdominal pain in the right upper quadrant associated with nausea without vomiting after eating scrambled eggs . workup with CT abdomen and pelvis as well as ultrasound reveals a large gallstone at the neck of the gallbladder with moderately thickened gallbladder wall. Findings are suggestive of acute cholecystitis due to cholelithiasis. On examination the patient is tender in the right upper qu adrant with a positive Martinez sign also suggestive of acute cholecystitis. I recommended admission with a planned laparoscopic cholecystectomy the tomorrow. After discussion of the procedure, risks, and alternatives, he consents to the Laparoscopic or possible open cholecystectomy. He has been added onto the operative schedule for tomorrow. Time Spent With Patient Time: Total time managing care of this patient today ____ minutes. Quality Stroke Does the patient have a stroke diagnosis?: No VTE Prior VTE?: No VTE Risk Level:: Surgical - moderate VTE Device Contraindication: N/A - Device Ordered VTE Drug Contraindication: Treatment Not Indicated Procedures Date of Service Date of Service: 08/31/22
[2022-08-31 18:44] LABS: Appearance Urine Clear; Color Urine Yellow; Glucose Urine UA Negative (Negative); Leukocyte Esterase Urine Negative (Negative); Nitrite Urine Negative (Negative); PH 6.5 (5.0-9.0); Specific Gravity - Urine >= 1.030 (1.005-1.025); Urine Blood Negative (Negative); Urine Ketones Negative (Negative); Urine Protein Negative (Neg-Trace)
--- NOTE | 2022-08-31 19:08 | PHA.MEDREC ---
Pharmacy Consult ? Medication Reconciliation Pharmacy has completed the medication reconciliation. Patient states he is not on anything at this time but dexilant which he takes seldomly. Admits he is not adherent. Dale
[2022-08-31] MEDS: Piperacillin Sodium/Tazobactam 3.375 GM in 0.9 % Sodium Chloride 50 ML IV (19:59)
[2022-08-31] MEDS: Dextrose 5 % and Lactated Ring 1,000 ML 125 ML IVCONT (20:27)
--- NOTE | 2022-08-31 21:10 | MHC.EDTECH ---
THIS TECH APPLY A CONDOM CATHETER
[2022-08-31] MEDS: HYDROmorphone HCl 0.5 MG/0.5 ML SYRINGE IVPUSH (22:19)
[2022-08-31 22:21] VITALS: BP 127/82; PULSE 72; RESP 12; TEMP 36.8; O2SAT 97
--- NOTE | 2022-08-31 22:41 | PC.NURSE ---
RN to RN report given to JERRI Abdalla. Pt being transferred to room 380 and aware of plan of care.
[2022-08-31 23:21] VITALS: BMI 29.2
[2022-08-31 23:52] VITALS: BP 112/67; PULSE 67; RESP 16; TEMP 36.4; O2SAT 99
[2022-09-01] VITALS (12 sets, daily range): BP systolic 107–134; BP diastolic 55–80; PULSE 59–104; RESP 16; TEMP 36.4–36.9; O2SAT 93–100
[2022-09-01] MEDS: Piperacillin Sodium/Tazobactam 3.375 GM in 0.9 % Sodium Chloride 50 ML IV ×4 (00:39→18:51)
[2022-09-01] MEDS: HYDROmorphone HCl 0.5 MG/0.5 ML SYRINGE IVPUSH ×5 (01:39→22:12)
[2022-09-01] MEDS: Dextrose 5 % and Lactated Ring 1,000 ML 125 ML IVCONT ×2 (04:33→21:22)
--- NOTE | 2022-09-01 09:42 | MHC.CM.PN ---
met with pt and his ,pt is independent cm intervention is not indicated pt is rubia garner x2 has own ride home dc plan home no servceis
--- NOTE | 2022-09-01 10:43 | MHC.CLN ---
NUTRITION ADDED GLUTEN ALLERGY TO EMR DUE TO DX CELIAC.
--- NOTE | 2022-09-01 13:00 | MHC.SHP ---
Pre-Procedural Eval Section A Date of Service: 09/01/22 The patient is an INPATIENT: Yes Changes since office visit: Yes Patient answered all questions; No Cold of Flu in the past 2 weeks, No New Medical Problems and No Changes in Medication The History & Physical has been completed within 30 days and I have reviewed it.: Yes Section B Chief Complaint: Acute cholecystitis, cholelithiasis Allergies: Allergies Allergy/AdvReac Type Severity Reaction Status Date / Time aspirin [Aspirin] Allergy Intermediate TACHYCARDIA, Verified 07/01/20 06:57 palpitations, tachycardia latex [LATEX] Allergy Intermediate RASH Verified 10/14/21 10:29 gluten Allergy Unknown Verified 09/01/22 10:43 diphenhydramine AdvReac Intermediate TACHYCARDIA Verified 10/14/21 10:29 [From BENADRYL] AND CHNAGES IN BEHAVOR Plan Diagnosis/Plan: Unchanged I have reviewed the history and physical and performed a pertinent physical examination on my patient. No changes have occurred unless specified. Time Spent With Patient Time: Total time managing care of this patient today ____ minutes.
--- NOTE | 2022-09-01 14:32 | W.PM.OPN ---
Operative Note Operative Note Date of Service: 09/01/22 Narrative: Preoperative diagnosis: Acute cholecystitis, cholelithiasis Postoperative diagnosis: Same Procedure: Laparoscopic cholecystectomy Surgeon: Glenn Beckford MD Machinist Wood: KRISTINE Kenny Anesthesia: General endotracheal Indications for procedure: 42-year-old male patient presenting with complaints of abdominal pain in the right upper quadrant radiating into the back associated with nausea. Patient has a prior history of Crohn's disease and sent previous intestinal surgery through a lower midline incision. He presents today for laparoscopic or possible open cholecystectomy. Operative findings: Acutely inflamed gallbladder with adhesions at the midline incision. Large gallstone at the neck of the gallbladder with thickened gallbladder wall pericholecystic fluid. Specimen: gallbladder Estimated blood loss: 2 mL Complications: non Procedure details: Patient was brought to the OR and placed in a supine position. After administering general anesthesia the patient's abdomen was prepped with ChloraPrep and draped in a sterile fashion. because of the previous abdominal surgery an incision was made in the epigastrium in a transverse fashion carried out through subcutaneous tissue up the fascia. Fascia was incised with electrocautery and peritoneum brought up through the incision. This was incised with the Metzenbaum scissors and the abdominal cavity entered. A 5 mm trocar was then inserted in the abdomen insufflated to a pressure of 15 mmHg. Two 5 mm trocars were then placed in the right upper quadrant under direct vision. A 5 mm trocar was placed in the midline just above the umbilicus away from the previous adhesions. The 5 mm trocar at the epigastrium was then converted to a 15 mm trocar. The abdomen was explored and the above findings noted. The patient was placed in reverse Trendelenburg positioning and rotated to the left. The gallbladder was grasped with the fundus and retracted cephalad by the sales and marketing assistant. The infundibulum was then grasped and retracted away from the liver bed, also by the sales and marketing assistant. The Dolphin dissected was then used by the surgeon to dissect the peritoneum off the infundibulum to reveal the junction with the cystic duct. Cystic artery was noted slightly medial and posterior to the cystic duct. After obtaining a critical view the cystic duct was doubly clipped and divided. The cystic artery was then doubly clipped and divided. The gallbladder was then dissected off the liver bed using electrocautery with an L hook. Hemostasis was assured all times using the electrocautery. When the gallbladder is completely dissected off the liver bed was placed in an Endo-Catch bag and brought out through the epigastric incision. The gallbladder was sent to pathology for further examination. The abdomen was then re-examined. The liver bed was irrigated and suctioned dry. No bleeding or bile leak could be identified. CO2 was then evacuated and all trocars removed. Fascia was closed at the epigastric incision using a [id number] 0 Polysorb suture. Skin was closed in all incisions using a subcuticular 4 0 Polysorb suture by both the surgeon and sales and marketing assistant. Sterile dressings consisting of Steri-Strips, 2 x 2 gauze, and Tegaderm were then applied. The patient tolerated the procedure well. Sponge instrument and needle counts reported as correct. The patient was transferred to PACU in stable condition.
[2022-09-01] MEDS: Acetaminophen 1,000 MG/100 ML PIGGYBACK 400 MG IV (17:26)
[2022-09-01] MEDS: oxyCODONE HCl Immed Release 5 MG TABLET PO (21:22)
[2022-09-01] MEDS: 0.9 % Sodium Chloride Flush 3 ML SYRINGE IVFLUSH (22:12)
[2022-09-02] MEDS: Piperacillin Sodium/Tazobactam 3.375 GM in 0.9 % Sodium Chloride 50 ML IV ×3 (00:08→12:59)
[2022-09-02] MEDS: HYDROmorphone HCl 0.5 MG/0.5 ML SYRINGE IVPUSH ×3 (02:37→10:28)
[2022-09-02 03:22] VITALS: BP 116/61; PULSE 81; RESP 18; TEMP 36.8; O2SAT 98
[2022-09-02] MEDS: oxyCODONE HCl Immed Release 5 MG TABLET PO ×2 (04:33→14:20)
[2022-09-02] MEDS: Dextrose 5 % and Lactated Ring 1,000 ML 125 ML IVCONT (05:46)
[2022-09-02 07:39] VITALS: BP 123/61; PULSE 80; RESP 20; TEMP 36.6; O2SAT 95
--- NOTE | 2022-09-02 07:57 | P.PNGS_ITS ---
Subjective Subjective Date of Service: 09/02/22 Interval history: Patient mainly reports incisional pain especially in the upper abdomen. Was able to tolerate a regular diet last evening without nausea or vomiting. Physical Exam Vital Signs: Vital Signs: Last Vital Signs Temp 98 F 09/02/22 07:39 Pulse 80 09/02/22 07:39 Resp 20 09/02/22 07:39 BP 123/61 09/02/22 07:39 Pulse Ox 95 09/02/22 07:39 O2 Del Method Room Air 09/02/22 07:39 O2 Flow Rate 2.0 09/01/22 19:30 BMI result Body Mass Index 29.2 Const: General: no acute distress Nutritional Appearance: well nourished Orientation/consciousness: patient oriented x3 Limitations: no limitations Eyes: Sclerae: sclerae normal Resp: Effort & Inspection: normal respiratory effort, no audible wheezes, no cough and no respiratory distress GI: Other: Trocar incisions are clean, dry, and intact without redness or discharge. Inspection: Yes normal to inspection Palpation (GI): Soft to palpation, nontender, no guarding and not rigid Neuro: General: patient oriented x3 Extrem: General: Yes no clubbing, cyanosis or edema Objective Data Active Medications Acetaminophen (Acetaminophen 325 Mg Tablet) 650 mg PO QID PRN PRN Reason: headache, temp > 101 Hydromorphone HCl (Hydromorphone Hcl 0.5 Mg/0.5 Ml Syringe) 0.5 mg IVPUSH Q3H PRN; Protocol PRN Reason: Pain, Severe (Pain Scale 7-10) Last Admin: 09/02/22 07:13 Dose: 0.5 mg Documented By: MELANIE Dextrose/Lactated Ringer's (D5lr) 1,000 mls @ 125 mls/hr IVCONT .Q8H [facility] Last Admin: 09/02/22 05:46 Dose: 125 mls/hr Documented By: KELL Piperacillin Sod/Tazobactam (Sod 3.375 gm/ Sodium Chloride) 50 mls @ 100 mls/hr IV Q6H [facility] Last Admin: 09/02/22 06:34 Dose: 100 mls/hr Documented By: KELL Non-Formulary Medication (Dexlansoprazole [Dexilant]) 1 cap PO DAILY [facility] Ondansetron HCl (Ondansetron Hcl 4 Mg/2 Ml Vial) 4 mg IVPUSH Q8H PRN PRN Reason: Nausea Oxycodone HCl (Oxycodone Hcl Immed Release 5 Mg Tablet) 5 mg PO Q6H PRN PRN Reason: Pain, Moderate (Pain Scale 4-6 Last Admin: 09/02/22 04:33 Dose: 5 mg Documented By: KELL Pharmacy Consult (Consult Rx Perform Med Rec) 1 each MISCELLANE ONCE PRN PRN Reason: Consult order Sodium Chloride (0.9 % Sodium Chloride Flush 3 Ml Syringe) 3 ml IVFLUSH QSHIFT SHANE Last Admin: 09/01/22 22:12 Dose: 3 ml Documented By: KELL Zolpidem Tartrate (Zolpidem Tartrate 5 Mg Tablet) 5 mg PO BEDTIME PRN PRN Reason: Insomnia Labs 08/31/22 14:02 08/31/22 14:02 Procedures Date of Service Date of Service: 09/02/22 Progress Note: A&P Assessment and plan (1) Cholecystitis, acute with cholelithiasis: Status: Acute Plan 42-year-old male patient presenting with acute cholecystitis due to cholelithiasis, pod 1 following laparoscopic cholecystectomy. Tolerated the procedure well and is tolerating regular diet. He complains mainly of incisional pain overall his wounds are clean and intact and he remains stable. Will check back later for possible discharge to home. Time Spent With Patient Time: Total time managing care of this patient today ____ minutes. Quality Stroke Does the patient have a stroke diagnosis?: No VTE Prior VTE?: No VTE Risk Level:: Surgical - moderate VTE Device Contraindication: N/A - Device Ordered VTE Drug Contraindication: Treatment Not Indicated
--- NOTE | 2022-09-02 14:12 | HO.POSTANES ---
Post Anesthesia Evaluation Post Anesthesia Evaluation Vital Signs: Vital Signs Temp Pulse Resp BP Pulse Ox O2 Del Method 09/02/22 07:39 98 F 80 20 123/61 95 Room Air 09/02/22 03:22 98.3 F 81 18 116/61 98 Room Air Anesthesia: General Endotracheal-GETA Mental Status: Awake Pain Control: Satisfactory Nausea/Vomiting: None Hydration: Adequate Anesthesia-Related Issues: No Anes. Related Issues
--- NOTE | 2022-09-02 14:38 | P.DS_ITS ---
DS: Providers Provider Date of Service: 09/02/22 Date of admission: 08/31/22 18:18 Date of discharge: 09/02/22 Primary care physician: Elizabeth Mast MD Attending physician on admission: Glenn Beckford DS: Diagnosis Discharge Diagnosis (1) Cholecystitis, acute with cholelithiasis: Status: Acute DS: Summary Hospital Course Hospital Course: HPI AT ADMISSION: Brain Hsieh is a 42 year old male well known to the service with a previous history of Crohn's disease, with prior history of small- bowel obstructions due to adhesions now presenting with complaints of abdominal pain in the epigastrium and right upper quadrant radiating to the back. The pain began today after eating scrambled eggs . The pain began the epigastrium in gradually radiated into the back. He denies a previous history of similar pain. He feels the pain is different than his previous Crohn's pain. He reports some nausea without vomiting. He denies anorexia, fever, chills, diarrhea, or constipation. He has had numerous surgical procedures further Crohn's disease. Workup with CT abdomen and pelvis as well as ultrasound reveals a large gallstone at the neck of the gallbladder with moderately thickened gallbladder wall.? Findings are suggestive of acute cholecystitis due to cholelithiasis. HOSPITAL COURSE: ?He was admitted to the surgical service for further treatment of the acute cholecystitis. It was recommended to proceed with laparoscopic cholecystectomy.? He was added onto the operative schedule for the following day. On 09/01/22, a laparoscopic cholecystectomy was performed by Dr. Beckford without complication. He was found to have acutely inflamed gallbladder with adhesions at the midline incision and a large gallstone at the neck of the gallbladder with thickened gallbladder wall and pericholecystic fluid. He tolerated the procedure well. he had an uncomplicated recovery course. On POD #1, he felt overall well but was requiring IV analgesics for pain control. He was encouraged to take PO analgesics. He was tolerating solid diet. He was ambulated. He was reassessed later in the day and felt ready for discharge to home and had adequate pain control on oral analgesics. His abdomen was benign with clean/intact dressings. He was discharged to home on 09/02/22 in stable condition. He is to follow up with Dr. Beckford in 1 week. Status at Discharge Functional status at discharge: independent ambulation Overall status at discharge: patient is progressing back to baseline Time Spent with Patient Time attestation: Total time managing care of this patient today ____ minutes. Discharge coordination time: Less than 30 minutes Quality: Safe Use of Opioids Does Pt have an Active Cancer Diagnosis on the Problem List?: No Quality: Stroke Does the patient have a stroke diagnosis?: No Physical Exam Vital Signs: Vital Signs: Last Vital Signs Temp 98 F 09/02/22 07:39 Pulse 80 09/02/22 07:39 Resp 20 09/02/22 07:39 BP 123/61 09/02/22 07:39 Pulse Ox 95 09/02/22 07:39 O2 Del Method Room Air 09/02/22 07:39 O2 Flow Rate 2.0 09/01/22 19:30 BMI result Body Mass Index 29.2 Const: General: comfortable, no acute distress and alert Orientation/consciousness: patient oriented x3 Resp: Effort & Inspection: normal respiratory effort GI: Inspection: No distended and Yes incision (dressings c/d/i) Palpation (GI): Soft to palpation, Tenderness to palpation present (GI) (mild incisional), no guarding and not rigid Percussion: Yes normal to percussion Skin: General skin exam: no rashes or lesions noted Neuro: General: patient oriented x3 DS: Data Data Completed and Pending Pending studies at discharge: Pending at discharge 09/01/22 15:53 Surgical [PTH] Routine Discharge Plan Discharge Anticipated Discharge Date/Time: 09/02/22 12:03 Patient Disposition: Home, Self-Care Discharge Diagnosis: acute cholecystitis s/p [place] Referrals: Elizabeth Mast MD [Primary Care Provider] - 1 Week Glenn Beckford MD [Physician] - 1 Week Discharge Medications: New oxycodone 5 mg tablet 5 mg PO Q4H PRN (Reason: pain (scale score 7-10)) Qty: 20 0RF Rx Instructions: Partial Fill upon patient request. Continued dexlansoprazole [Dexilant] 30 mg capsule,biphase delayed releas 1 cap PO QAM Discharge Orders: Discharge Order (Routine); Ordered 09/02/22 Ordered By: Katelyn Platt Diet: Low fat, low cholesterol Activity on Discharge: No heavy lifting Stand Alone Forms: Patient Portal Discharge page Activity Restrictions/Additional Instructions: If the incision area is tender, you may apply an ice pack for short intervals (No more than 20 minutes on, followed by at least 20 minutes off). Do not apply heat. Do not use creams, lotions, or topical antibiotics unless instructed to do so by your surgeon. These can cause infection or allergic reaction. Ok to shower. Remove clear dressings tomorrow (09/03/22). You have steri strips (small white cloth strips) covering your incision- these will fall off ~1 week. No heavy lifting (>10lbs) or strenuous activity! Follow up in office with Dr. Beckford in 1 week. ([phone]) Call Your Doctor If: -Your temperature exceeds 101.5? F -You experience excessive pain or swelling -You have an unexpected reaction to medication -You have excessive bleeding -You experience continued vomiting/nausea -Your incision begins to separate -Your incision shows signs of infection such as increased redness, swell ing, excessive pain, drainage (light blood or clear fluid is normal) or heat Care Plan Goals: Return to baseline health and resume normal activities following recovery period. Health Concerns: acute cholecystitis crohns disease Plan of Treatment: s/p laparoscopic cholecystectomy pain control f/u in office Assessment: Doing well post op
--- NOTE | 2022-09-02 14:58 | MHC.CM.PN ---
home - self care RN aware
== END 2022-09-02 16:33 | disposition home or self-care (01) | DRG 263 ==
LOC: HO.ED 20:04 → HO.EDOVER 20:08 → HO.S3 22:11
PROVIDERS: Physician Assistant Medical; Admitting Provider Surgery; Emergency Provider Emergency Medicine Emergency Medical Services; PCP Internal Medicine; Visit Provider Surgery
PROC: 0FT44ZZ Resection of Gallbladder, Percutaneous Endoscopic Approach (ICD-10-PCS; CPT 47562; principal; 2022-09-01 13:00)
DX: K80.01 Calculus of gallbladder with acute cholecystitis with obstruction (principal); K50.90 Crohn's disease, unspecified, without complications; K82.8 Other specified diseases of gallbladder; Z20.822 Contact with and (suspected) exposure to COVID-19; Z91.040 Latex allergy status; Z88.6 Allergy status to analgesic agent; Z88.8 Allergy status to other drugs, medicaments and biological substances; Z79.899 Other long term (current) drug therapy
CPT/HCPCS: 47562; 0241U; 74177; 76700; 80053; 81003; 83690; 83735; 85025; 85610; 85652; 85730; 86140; 88304; 99285; J0131; J1100; J1170; J2250; J2405; J2543; J3010; Q9967

== ENCOUNTER → 2022-09-10 10:56 | Outpatient (BNVA) | payer MEDICAID, SELFPAY | PROVIDERS: PCP Internal Medicine; Visit Provider Surgery ==

== ENCOUNTER → 2022-10-07 10:23 | Outpatient (BNV) | payer MEDICAID, OTHER, SELFPAY | PROVIDERS: Visit Provider Internal Medicine | DX: D50.9 Iron deficiency anemia, unspecified (principal); K50.90 Crohn's disease, unspecified, without complications | CPT/HCPCS: 99204; 99214 ==

== ENCOUNTER 2022-10-14 12:39 | Outpatient (REF) | payer MEDICAID, SELFPAY | END 2022-10-14 12:40 | disposition home or self-care (01) | LOC: HO.MDS 12:39 | PROVIDERS: Visit Provider Internal Medicine | DX: D50.9 Iron deficiency anemia, unspecified (principal) | CPT/HCPCS: 96374; J1756 ==

== ENCOUNTER 2022-10-19 13:51 | Outpatient (REF) | payer MEDICAID, SELFPAY | END 2022-10-19 13:52 | disposition home or self-care (01) | LOC: HO.MDS 13:51 | PROVIDERS: Visit Provider Internal Medicine | DX: D50.9 Iron deficiency anemia, unspecified (principal) | CPT/HCPCS: 96365; J1756 ==

== ENCOUNTER 2022-10-28 12:41 | Outpatient (REF) | payer MEDICAID, SELFPAY | END 2022-10-28 12:42 | disposition home or self-care (01) | LOC: HO.MDS 12:41 | PROVIDERS: Visit Provider Internal Medicine | DX: D50.9 Iron deficiency anemia, unspecified (principal) | CPT/HCPCS: 96365 ==

== ENCOUNTER 2022-11-03 12:49 | Outpatient (REF) | payer MEDICAID, SELFPAY | END 2022-11-03 12:50 | disposition home or self-care (01) | LOC: HO.MDS 12:49 | PROVIDERS: Visit Provider Internal Medicine | DX: D50.9 Iron deficiency anemia, unspecified (principal) | CPT/HCPCS: 96365; J1756 ==

== ENCOUNTER 2022-11-10 11:44 | Outpatient (REF) | payer MEDICAID, SELFPAY | END 2022-11-10 11:45 | disposition home or self-care (01) | LOC: HO.MDS 11:44 | PROVIDERS: Visit Provider Internal Medicine | DX: D50.9 Iron deficiency anemia, unspecified (principal) | CPT/HCPCS: 96365; J1756 ==

== ENCOUNTER → 2023-08-24 09:24 | Outpatient (REF) | payer OTHER, SELFPAY ==
--- NOTE | 2023-08-24 09:28 | CA_ITS ---
Acquisition Time: 2023-08-24 09:41:28 Total Exercise Time: 00:08:40 Test Indications: chest pain Medications: none Protocol: SASHA Max HR: 153 BPM 85% of Pred: 179 BPM Max BP: 130/080 mmHG Max Work Load: 10.1 METS Exercise stress test 8 min 40 sec of Sasha protocol achieving 85% MPHR, with mild SOB, no chest disomfort, without arrhythmias, with normotensive response to exercise, without EKG changes. Breathing returned to normal with rest. Test reviewed with Dr. Camarillo. Referred By: Monica Iraheta Overread By: Soledad Madrid
[2023-08-24 10:23] LABS: MANUAL DIFF FLAG NO
[2023-08-24 10:33] LABS: Basophils Percent Auto 0.5 % (0-2); Eosinophils Absolute Auto 0.1 X10*3/uL (0.0-0.4); Eosinophils Percent Auto 1.9 % (0-4); Hematocrit 36.7 % (42.0-52.0); Hemoglobin 10.5 g/dl (14.0-18.0); Imm Gran Abs Auto 0.01 X10*3/uL (0.00-0.03); Imm Gran Pct Auto 0.2 % (0.0-0.4); Lymphocytes Absolute Auto 1.5 X10*3/uL (1.2-4.9); Lymphocytes Percent Auto 23.7 % (20-40); Mean Corpuscular HGB Conc 28.6 g/dl (31.0-36.0); Mean Corpuscular Hemoglobin 19.8 pg (27.0-33.0); Mean Corpuscular Volume 69.4 fL (80.0-98.0); Mean Platelet Volume 10.9 fL (9.4-12.4); Monocytes Absolute Auto 0.6 X10*3/uL (0.1-1.2); Monocytes Percent Auto 9.2 % (2-11); Neutrophils Percent Auto 64.5 % (45-73); Platelet Count 272 X10*3/uL (160-400); Red Blood Count 5.29 X10*6/uL (4.60-5.80); Red Cell Distribution Width 19.8 % (11.0-16.0); White Blood Count 6.2 X10*3/uL (4.8-10.8)
[2023-08-24 11:03] LABS: Alanine Aminotransferase 18 U/L (0-40); Albumin Level 4.3 g/dL (3.5-5.0); Alkaline Phosphatase 97 U/L (39-117); Anion Gap 15 (12-20); Aspartate Amino Transferase 15 U/L (5-37); Bilirubin Total 0.3 mg/dL (0.0-1.0); Blood Urea Nitrogen 15 mg/dL (9-16); Calcium 9.2 mg/dL (8.4-10.2); Carbon Dioxide 21 mmol/L (22-29); Chloride 108 mmol/L (96-108); Cholesterol 178 mg/dL (<200); Estimated Glomerular Filt Rate > 60; Glucose Random 95 mg/dL (60-115); HDL Cholesterol 39 mg/dL (>40); LDL Cholesterol Calculated 97 mg/dL (<100); Potassium 4.4 mmol/L (3.3-5.1); Sodium 140 mmol/L (135-145); Total Protein 7.6 g/dL (6.5-8.0); Triglycerides 213 mg/dL (<150)
[2023-08-24 11:18] LABS: HIV AB/AG Nonreactive (Nonreactive); HIV Num 1 0.08 S/CO (0.00-0.99); ~HepC Num1 0.51 S/CO (0.00-0.79); ~Hepatitis C Antibody Nonreactive (Nonreactive)
[2023-08-24 11:19] LABS: TSH reflex Free T4 1.34 uIU/mL (0.32-4.0); Vitamin D 25-OH Total 15.2 ng/mL (>30)
== END ==
LOC: HO.CARD 09:24
PROVIDERS: PCP Family Medicine; Visit Provider Family Medicine
DX: R07.9 Chest pain, unspecified (principal); E66.9 Obesity, unspecified; E55.9 Vitamin D deficiency, unspecified; Z11.4 Encounter for screening for human immunodeficiency virus [HIV]
CPT/HCPCS: 36415; 80053; 80061; 82306; 84443; 85025; 86803; 87389; 93017

== ENCOUNTER → 2023-08-24 09:28 | Outpatient (BNV) | payer OTHER, SELFPAY | PROVIDERS: PCP Family Medicine; Visit Provider Nurse Practitioner | DX: R07.9 Chest pain, unspecified (principal); R06.02 Shortness of breath | CPT/HCPCS: 93016; 93018 ==

== ENCOUNTER 2023-10-06 10:54 | Outpatient (AMB) | payer OTHER, SELFPAY ==
[2023-10-06 10:56] VITALS: BP 112/74; PULSE 88; O2SAT 99; BMI 27.8
--- NOTE | 2023-10-06 10:56 | MHC.OFFVIS ---
Vital Signs 10/06/23 10:56 Height 5 ft 6 in Weight 171 lb 15.369 oz BMI 27.8 BP 112/74 Blood Pressure Location Lt brachial Position Sitting Pulse 88 Pulse Source Doppler Pulse Oximetry (%) 99 Intake Visit Reasons: Post Covid Allergies aspirin [Aspirin] Allergy (Intermediate, Verified 10/06/23 10:58) TACHYCARDIA, palpitations, tachycardia latex [LATEX] Allergy (Intermediate, Verified 10/06/23 10:58) RASH gluten Allergy (Verified 10/06/23 10:58) Unknown diphenhydramine [From BENADRYL] Adverse Reaction (Intermediate, Verified 10/06/23 10:58) TACHYCARDIA AND CHNAGES IN BEHAVOR HPI HPI Post Covid: Details: 43-year-old gentleman, lifetime nonsmoker, referred for evaluation of dyspnea on exertion that he started to experience after he had COVID in 2019. Patient complains of dyspnea with climbing up stairs, going up hills, trying to run or walk fast. He denies prior personal history of lung disease. He does have brother with asthma. Patient denies recent pulmonary function testing. He does complain of environmental allergies. Patient does have cat and dog as pets. 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 [facility] Medical History Abdominal pain despite therapy for Crohn's disease Asthma COVID-19 virus infection Crohn's disease Surgical History H/O abdominal surgery History of laparoscopic cholecystectomy (09/01/22) Family History Father Hypertension Mother Diabetes Maternal Grandfather Renal cancer Brother In good health Brother In good health Sister In good health Son In good health Son In good health Social History Household Members: Family Housing: House Do you presently have visiting nurse or other home services: No Alcohol intake: never Patient Tobacco Use Status: Never used Tobacco Second Hand Smoke Exposure: No service: No Current occupational status: employed [employer] Const Denies daytime sleepiness, Denies excessive sweating, Denies fatigue, Denies fever(s), Denies lethargy, Denies malaise, Denies night sweats, Denies snoring and Denies weight loss Eyes Denies blurry vision and Denies itchy eyes ENT Denies nasal congestion, Denies post nasal drip, Denies sinus pain, Denies sinus pressure and Denies other ( Thrush) Card Denies chest pain, Denies pedal edema, Denies dyspnea, Reports dyspnea on exertion, Denies orthopnea and Denies paroxysmal nocturnal dyspnea Resp Denies cough, Denies hemoptysis, Denies excessive phlegm production, Denies dyspnea, Reports dyspnea on exertion, Denies snoring and Denies wheezing GI Denies abdominal pain and Denies heartburn Musc Denies myalgias, Denies arthralgias and Denies joint swelling Skin/Breast Denies rash Neuro Denies memory loss and Denies seizure-like activity Psych Denies abnormal sleep pattern, Denies anxiety and Denies memory loss Endo Denies excessive sweating, Denies fatigue and Denies heat intolerance Jony/Lymph Denies easy bruising Aller/Immun Denies itchy eyes, Denies seasonal rhinorrhea and Denies wheezing Physical Exam Vital Signs: Last Vital Signs Pulse 88 10/06/23 10:56 BP 112/74 10/06/23 10:56 Pulse Ox 99 10/06/23 10:56 BMI result Body Mass Index 27.8 Const General: no acute distress and alert Nutritional Appearance: not obese Orientation/consciousness: Other orientation findings ( oriented) HEENT Head: Yes atraumatic Eyes General: appearance normal, both eyes and all related structures Sclerae: sclerae normal EOM: EOMs intact bilaterally Neck Neck: Yes supple Lymphatic: no lymphadenopathy noted Resp Effort & Inspection: normal respiratory effort and no use of accessory muscles Auscultation: clear to auscultation bilaterally Cardio Rate: regular rate Rhythm: regular rhythm Heart sounds: no gallops, no murmurs and no rubs Skin General skin exam: other ( warm) Extrem General: No clubbing, No cyanosis and No edema Assessment & Plan Assessment & Plan (1) Post covid-19 condition, unspecified: Code(s): U09.9 - Post COVID-19 condition, unspecified Category: Medical Plan: Concern for possible early fibrosis. Will obtain CT chest for further evaluation (2) Dyspnea on exertion: Code(s): R06.09 - Other forms of dyspnea Category: Medical Plan: Unclear etiology, may have pulmonary and/or cardiac component. Will proceed with obtaining pulmonary function test initially. Coding Level of Care Code New Pt Level 4 (37635) Diagnoses Post covid-19 condition, unspecified U09.9 Dyspnea on exertion R06.09
== END 2023-10-06 11:30 | disposition home or self-care (01) ==
PROVIDERS: PCP Family Medicine; Referring Provider Family Medicine; Visit Provider Internal Medicine Pulmonary Disease
DX: U09.9 Post COVID-19 condition, unspecified (principal); R06.09 Other forms of dyspnea
CPT/HCPCS: 99204

== ENCOUNTER → 2023-10-06 10:54 | Outpatient (BNVA) | payer OTHER, SELFPAY | PROVIDERS: PCP Family Medicine; Referring Provider Family Medicine; Visit Provider Internal Medicine Pulmonary Disease ==

== ENCOUNTER 2023-11-08 11:30 | Outpatient (RCR) | payer OTHER, SELFPAY ==
[2023-10-04 13:12] VITALS: BP 117/70; PULSE 100; RESP 16; TEMP 36.6; O2SAT 100
[2023-10-04] MEDS: Iron Sucrose Complex 200 MG in 0.9 % Sodium Chloride 100 ML 440 MG IV (13:22)
[2023-10-04] MEDS: 0.9 % Sodium Chloride Flush 10 ML SYRINGE 5 ML IVFLUSH (13:22)
[2023-10-11 08:12] VITALS: BP 115/62; PULSE 87; RESP 16; TEMP 36.6; O2SAT 96
[2023-10-11] MEDS: Iron Sucrose Complex 200 MG in 0.9 % Sodium Chloride 100 ML 440 MG IV (08:20)
[2023-10-11] MEDS: 0.9 % Sodium Chloride Flush 10 ML SYRINGE 5 ML IVFLUSH (08:22)
[2023-10-18 08:59] VITALS: BMI 27.4
[2023-10-18 09:01] VITALS: BP 105/67; PULSE 75; RESP 16; TEMP 36.8; O2SAT 99
[2023-10-18] MEDS: Iron Sucrose Complex 200 MG in 0.9 % Sodium Chloride 100 ML 440 MG IV (09:20)
[2023-10-18] MEDS: 0.9 % Sodium Chloride Flush 10 ML SYRINGE 5 ML IVFLUSH (09:35)
[2023-10-25] MEDS: 0.9 % Sodium Chloride Flush 10 ML SYRINGE 5 ML IVFLUSH (09:00)
[2023-10-25 09:01] VITALS: BP 104/64; PULSE 73; RESP 16; TEMP 36.4; O2SAT 100
[2023-10-25] MEDS: Iron Sucrose Complex 200 MG in 0.9 % Sodium Chloride 100 ML 440 MG IV (09:06)
[2023-11-01] MEDS: Iron Sucrose Complex 200 MG in 0.9 % Sodium Chloride 100 ML 440 MG IV (09:55)
[2023-11-01 10:00] VITALS: BP 113/66; PULSE 66; RESP 16; TEMP 37; O2SAT 98
[2023-11-08 11:48] VITALS: BP 108/65; PULSE 73; RESP 16; TEMP 36.6; O2SAT 98
[2023-11-08] MEDS: Iron Sucrose Complex 200 MG in 0.9 % Sodium Chloride 100 ML 440 MG IV (11:53)
== END 2023-11-08 12:15 | disposition home or self-care (01) ==
LOC: HO.INF 11:30
PROVIDERS: Visit Provider Internal Medicine
DX: D50.9 Iron deficiency anemia, unspecified (principal)
CPT/HCPCS: 96374; J1756

== ENCOUNTER 2023-11-12 | Outpatient (REF) | payer OTHER, SELFPAY ==
[2023-11-12 10:41] VITALS: PULSE 67; RESP 16; O2SAT 97
--- NOTE | 2023-11-12 11:00 | PFT_ITS ---
Indication: Dyspnea Spirometry [FEV1 to FVC 68 pre bronchodilators and 74% post bronchodilators; FEV1 2.75 L; FVC 3.72 L. There was a significant response to bronchodilators noted. Maximum voluntary ventilation 69% predicted] Lung Volumes [Total lung capacity 90% predicted; residual volume 151% predicted] Diffusion Capacity [DLCO 109% predicted] Comparisons [None] Interpretation [There is a reversible obstructive ventilatory defect consistent with a diagnosis of asthma. There is significant response to bronchodilators noted. There is a mild decrease in the maximum voluntary ventilation which is likely due to worsening dynamic inspiratory capacity. The patient does have significant air trapping due to the obstructive airway disease. Diffusing capacity is within normal limits.] MTDD
== END 2023-11-12 00:01 | disposition home or self-care (01) ==
LOC: HO.RESP
PROVIDERS: PCP Family Medicine; Visit Provider Internal Medicine Pulmonary Disease
DX: R06.09 Other forms of dyspnea (principal)
CPT/HCPCS: 94010; 94640; 94727; 94729

== ENCOUNTER 2023-11-15 09:08 | Outpatient (AMB) | payer OTHER, SELFPAY ==
[2023-11-15 09:12] VITALS: BP 108/72; PULSE 83; O2SAT 100; BMI 26.6
--- NOTE | 2023-11-15 09:12 | MHC.OFFVIS ---
Vital Signs 11/15/23 09:12 Height 5 ft 6 in Weight 165 lb BMI 26.6 BP 108/72 Blood Pressure Location Rt brachial Position Sitting Pulse 83 Pulse Source Pulse Oximeter Pulse Oximetry (%) 100 Oxygen Delivery Method Room Air Intake Visit Reasons: Post Covid Allergies aspirin [Aspirin] Allergy (Intermediate, Verified 11/15/23 09:15) TACHYCARDIA, palpitations, tachycardia latex [LATEX] Allergy (Intermediate, Verified 11/15/23 09:15) RASH gluten Allergy (Verified 11/15/23 09:15) Unknown diphenhydramine [From BENADRYL] Adverse Reaction (Intermediate, Verified 11/15/23 09:15) TACHYCARDIA AND CHNAGES IN BEHAVOR HPI HPI Post Covid: Details: 43-year-old gentleman, lifetime nonsmoker, referred for evaluation of dyspnea on exertion that he started to experience after he had COVID in 2019. Patient complains of dyspnea with climbing up stairs, going up hills, trying to run or walk fast. He denies prior personal history of lung disease. He does have brother with asthma. Patient denies recent pulmonary function testing. He does complain of environmental allergies. Patient does have cat and dog as pets. 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 After the last office visit patient has completed his pulmonary function test that showed mild obstructive ventilatory defect with bronchodilator reversal. Patient has not been using his Symbicort consistently. He has been relying heavily on albuterol MDI. He denies any recent exacerbations. [facility] Medical History (Updated 11/15/23 @ 09:31 by Jakub Hairston MD) COVID-19 virus infection Crohn's disease Asthma Abdominal pain despite therapy for Crohn's disease Surgical History History of laparoscopic cholecystectomy (09/01/22) H/O abdominal surgery Family History Father Hypertension Mother Diabetes Maternal Grandfather Renal cancer Brother In good health Brother In good health Sister In good health Son In good health Son In good health Social History Household Members: Family Housing: House Do you presently have visiting nurse or other home services: No Alcohol intake: never Patient Tobacco Use Status: Never used Tobacco Second Hand Smoke Exposure: No service: No Current occupational status: employed [employer] Denies daytime sleepiness, Denies excessive sweating, Denies fatigue, Denies fever(s), Denies lethargy, Denies malaise, Denies night sweats, Denies snoring and Denies weight loss Eyes Denies blurry vision and Denies itchy eyes ENT Denies nasal congestion, Denies post nasal drip, Denies sinus pain, Denies sinus pressure and Denies other ( Thrush) Card Denies chest pain, Denies pedal edema, Denies dyspnea, Denies orthopnea and Denies paroxysmal nocturnal dyspnea Resp Denies cough, Denies hemoptysis, Denies excessive phlegm production, Denies dyspnea, Denies snoring and Denies wheezing GI Denies abdominal pain and Denies heartburn Musc Denies myalgias, Denies arthralgias and Denies joint swelling Skin/Breast Denies rash Neuro Denies memory loss and Denies seizure-like activity Psych Denies abnormal sleep pattern, Denies anxiety and Denies memory loss Endo Denies excessive sweating, Denies fatigue and Denies heat intolerance Jony/Lymph Denies easy bruising Aller/Immun Denies itchy eyes, Denies seasonal rhinorrhea and Denies wheezing Physical Exam Vital Signs: Last Vital Signs Pulse 83 11/15/23 09:12 BP 108/72 11/15/23 09:12 Pulse Ox 100 11/15/23 09:12 Oxygen Delivery Method Room Air 11/15/23 09:12 BMI result Body Mass Index 26.6 Const General: no acute distress and alert Nutritional Appearance: not obese Orientation/consciousness: Other orientation findings ( oriented) HEENT Head: Yes atraumatic Eyes General: appearance normal, both eyes and all related structures Sclerae: sclerae normal EOM: EOMs intact bilaterally Neck Neck: Yes supple Lymphatic: no lymphadenopathy noted Resp Effort & Inspection: normal respiratory effort and no use of accessory muscles Auscultation: clear to auscultation bilaterally Cardio Rate: regular rate Rhythm: regular rhythm Heart sounds: no gallops, no murmurs and no rubs Skin General skin exam: other ( warm) Extrem General: No clubbing, No cyanosis and No edema Assessment & Plan Assessment & Plan (1) Asthma: Code(s): J45.909 - Unspecified asthma, uncomplicated Category: Medical Plan: Results of Pulmonary function test reviewed, underlying at least moderate persistent asthma with suboptimal control on Symbicort 80, will change to Breo 200. Continue albuterol MDI. (2) Environmental allergies: Code(s): Z91.09 - Other allergy status, other than to drugs and biological substances Category: Medical Plan: will obtain IgE level, CBC with differential, and RAST panel for further evaluation. Orders: Orders Complete Blood Count Auto Diff Today Z91.09 - Other allergy status, other than to drugs and biological substances Resp Allergy Profile Region I Today Z91.09 - Other allergy status, other than to drugs and biological substances Medications: New fluticasone furoate-vilanterol 200-25 mcg/dose (Breo Ellipta) 1 inh inhalation DAILY 30 days 1 inhaler 6RF albuterol sulfate 90 mcg/actuation 2 puffs inhalation Q4-6H PRN 1 inhaler 6RF shortness of breath or wheezing Coding Level of Care Code Est Pt Level 4 (75468) Diagnoses Asthma J45.909 Environmental allergies Z91.09
== END 2023-11-15 09:24 | disposition home or self-care (01) ==
PROVIDERS: PCP Family Medicine; Visit Provider Internal Medicine Pulmonary Disease
DX: J45.909 Unspecified asthma, uncomplicated (principal); Z91.09 Other allergy status, other than to drugs and biological substances
CPT/HCPCS: 99214

== ENCOUNTER → 2023-11-15 09:08 | Outpatient (BNVA) | payer OTHER, SELFPAY | PROVIDERS: PCP Family Medicine; Visit Provider Internal Medicine Pulmonary Disease ==

== ENCOUNTER → 2024-01-05 12:11 | Outpatient (BNVA) | payer OTHER, SELFPAY | PROVIDERS: PCP Family Medicine; Visit Provider Internal Medicine Gastroenterology ==

== ENCOUNTER 2024-06-27 08:57 | Outpatient (REF) | payer OTHER, SELFPAY ==
--- OUTSIDE RECORDS SUMMARY | 2024-06-27 09:20 | XMS_ITS | Clinical Summary ---
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 3 Active inFLIXimab (Remicade) 100 MG injection Infuse into a venous catheter. Active dexlansoprazole (Dexilant) [address] capsule Take 1 capsule (60 mg) by mouth in the morning. Do not crush or chew. 90 capsule 1 4 Active folic acid (Folvite) 1 MG tablet Take 1 tablet (1,000 mcg) by mouth in the morning. 120 tablet 3 4 Active albuterol (ProAir HFA) 108 (90 Base) MCG/ACT inhaler Inhale 2 puffs every 6 (six) hours if needed for wheezing. 18 g 5 4 Active budesonide-form oterol (Symbicort) 80-4.5 MCG/ACT inhaler Inhale 2 puffs in the morning and at bedtime. Rinse mouth with water after use to reduce aftertaste and incidence of candidiasis. Do not swallow. 1 each 11 4 08/10/19 25 Active cetirizine (ZyrTEC) 10 MG tablet Take 1 tablet (10 mg) by mouth in the morning. 90 tablet 1 4 Active cyanocobalamin (Vitamin B-12) 1000 MCG tablet Take 1 tablet (1,000 mcg) by mouth in the morning. 90 tablet 1 4 Active ergocalciferol (Vitamin D2) 1.25 MG (12191 UT) capsule Take 1 capsule (1.25 mg) by mouth 1 (one) time per week. 12 capsule 4 Active cholecalciferol (Vitamin D-3) 50 MCG (2000 UT) tablet Take 1 tablet (50 mcg) by mouth in the morning. 120 tablet 3 4 Active pantoprazole (ProtoNix) 40 MG EC tablet TAKE 1 TABLET BY MOUTH BEFORE BREAKFAST. DO NOT CRUSH, CHEW OR SPLIT. 90 tablet 4 Active Trexall 5 MG tablet TAKE 1 TABLET BY MOUTH EVERY TUESDAY, TUESDAY AND TUESDAY FOR 30 DAYS Active GaviLyte-G 236 g solution PLEASE SEE ATTACHED FOR DETAILED DIRECTIONS 4 Active Breo Ellipta 200-25 MCG/ACT aerosol powder TAKE 1 PUFF BY MOUTH EVERY DAY 4 Active Active Problems Problem Noted Date Diagnosed Date Chest pain 08/10/2023 Assessment & Plan (08/10/2023 10:00 PM EST): Patient was ordered a stress test and XR Chest due to intermittent chest pain. Referred to pulmonology. Colon cancer screening 08/10/2023 Assessment & Plan (08/10/2023 10:01 PM EST): Sent referral to gastroenterology Wheezing 08/10/2023 Anxiety 08/01/2023 Crohn's disease 09/13/2022 Iron deficiency anemia 09/13/2022 Vitamin D deficiency 09/13/2022 Left lower quadrant abdominal pain 05/25/2022 Assessment & Plan (05/25/2022 11:38 AM EST): Patient symptoms have been ongoing for the past 2 weeks, current symptoms are bloating and llq pain, denied fever/chills, nausea/vomiting, refers 2 weeks ago he was vomiting, but changed his diet and symtpoms improved slightly. I told the patient to visit ER based on current symptoms, risk of wworsening/complication, he refers he would like to wait, risk were discussed with patient, follow up with GI. Crohn's disease of small intestine with complica tion 05/25/2022 Immunizations Name Administration Dates Next Due Pneumococcal Conjugate PCV 20 08/10/2023 Tdap 08/10/2023 Family History Medical History Relation Name Comments Hypertension Father Liver cancer Maternal Grandfather Diabetes type II Mother Relation Name Status Comments Father Maternal Grandfather Mother Social History Tobacco Use Types Packs/Day Years Used Date Smoking Tobacco: Never Smokeless Tobacco: Never Tobacco Cessation:Counseling Given: Not Answered Alcohol Use Standard Drinks/Week Comments Never 0 (1 standard drink = 0.6 oz pur e alcohol) Depression Answer Date Recorded Patient Health Questionnaire-9 Score 0 09/13/2022 Housing Stability Answer Date Recorded What is your housing situation today? I have pilar cary 11/30/[address] you li ve. Do you have problems with any of the following? None of the above 11/30/2023 Food Insecurity Answer Date Recorded Within the past 12 months, y ou worried that your food would run out before you got money to buy more: Never True 11/30/2023 Within the past 12 months,th e food you bought just didn't last and you didn't have enough money to get more: Never True Transportation Answer Date Recorded In the past 12 months, has l ack of transportation kept you from medical appts, meetings, work or from getting things needed for daily living? No 11/30/2023 Utilities Answer Date Recorded In the past 12 months, has t he electric, gas, oil or water company threatened to shut off services in your home? No 11/30/2023 Depression Answer Date Recorded Patient Health Questionnaire-2 Score 0 09/13/2022 Internet Access Answer Date Recorded Internet Access Q1 Yes 02/06/2024 Internet Access Q2 Not on file 02/06/2024 Sex and Gender Information Value Date Recorded Sex Assigned at Male 04/05/2022 10:21 AM EDT Legal Sex Male 10:21 AM EDT Gender Identity Male 04/05/2022 10:21 AM EDT Sexual Orientation Don't know 04/05/2022 10 :21 AM EDT Last Filed Vital Signs Vital Sign Reading Time Taken Comments Blood Pressure 119/78 08/10/2023 10:27 AM EST Pulse 78 08/10/2023 10:27 AM EST Temperature 36.5 ??C (97.7 ??F) 08/10/2023 10:[address] Respiratory Rate 18 08/10/2023 10:27 AM EST Oxygen Saturation 98% 08/10/2023 10:27 AM EST Inhaled Oxygen Concentration - - Weight 78.5 kg (173 lb) 08/10/2023 10:27 AM EST Height 171 cm (5' 7.32 ) 08/10/2023 10:27 AM EST Body Mass Index 26.84 08/10/2023 10:27 AM EST Plan of Treatment Health Maintenance Due Date Last Done Comments Dental Oral Exam 1982 Dental Prophylaxis 1982 Dental X-Ray: Bitewings 1982 Dental X-Ray: Full Mouth 1982 Alcohol/Substance Use Screening 1994 Hepatitis B Vaccines (1 of 3 - 19+ 3-dose series) 2001 Depression Screening 09/14/2023 09/13/2022, 09/13/2022 COVID-19 Vaccine ( - 2023-2 5 season) 2024 11/04/2020, 10/07/2020 Influenza Vaccine (#1) 2024 Tobacco Screening 08/09/2024 08/10/2023 SDOH Screening 11/29/2024 11/30/2023 Lipid Panel 08/23/2028 08/24/2023, 08/28/2021 Zoster Vaccines (1 of 2) 2032 DTaP/Tdap/Td Vaccines (2 - T d or Tdap) 08/09/2033 08/10/2023 RSV Patients and Patients Aged 60 years or older (1 - 1-dose 75+ series) 2057 Pneumococcal Vaccine: Pediatrics (0 to 5 Years) and At-Risk Patients (6 to 64 Years) Aged Out 08/10/2023 No longer eligible b ased on patient's age to complete this topic HIV Screening Completed 08/24/2023 Hepatitis C Screening Completed 08/24/2023 HIB Vaccines Aged Out No longer eligi ble based on patient's age to complete this topic HPV Vaccines Aged Out No longer eligi ble based on patient's age to complete this topic Hepatitis A Vaccines Aged Out No long er eligible based on patient's age to complete this topic IPV Vaccines Aged Out No longer eligi ble based on patient's age to complete this topic Meningococcal Vaccine Aged Out No guillermina jovanny eligible based on patient's age to complete this topic RSV under 20 months Aged Out No longe r eligible based on patient's age to complete this topic Rotavirus Vaccines Aged Out No longer eligible based on patient's age to complete this topic Procedures Procedure Name Priority Date/Time Associated Diagnosis Comments HEPATITIS C AB W/REFL TO HCV RNA, QN, PCR Routine 08/24/2023 10:22 AM EDT Overweight HIV 1/2 ANTIGEN/ANTIBODY, FOURTH GENERATION W/RFL Routine 08/24/2023 10:22 AM EDT Overweight LIPID PANEL, STANDARD Routine 08/24/2023 10:22 AM EDT Overweight from Last 3 Months or Most Recently Relevant to Health Maintenance Results * Hepatitis C Antibody with Reflex to HCV, RNA, Quantitative, Real-Time PCR (08/24/2023 10:22 AM EDT) Hepatitis C Antibody Nonreactive Nonreactive [facility] Comment:Antibodies to HCV no t detected; does not exclude early acuteHCV infection. Blood Venous blood specimen / Unknown 08/24/2023 10:22 AM EDT 08/24/2023 10:22 AM EDT us Monica Iraheta MD LAB BLOOD ORDERABLES Final Re sult [facility] [address] [place] [phone] * HIV-1/2 Antigen and Antibodies, Fourth Generation, with Reflexes (08/24/2023 10:22 AM EDT) HIV AB/AG Nonreactive Nonreactive [facility] Comment:HIV-1 p24 Ag and/or HIV-1/HIV-2 Ab not detected.A test result that is nonreactive does not exclude thepossibility of exposure to or infection with HIV-1 and/orHIV-2. Nonreactive results in this assay for individualswith prior exposure to HIV-1 and/or HIV-2 may be due toantigen and antibody levels that are below the limit ofdetection of this assay.The [employer] HIV Ag/Ab Combo assay result andsupplemental assay results should be interpreted inconjunction with the patient's clinical presentation,history and other laboratory results. If the results areinconsistent with clinical evidence, additional testing issuggested to confirm the result. Blood Venous blood specimen / Unknown 08/24/2023 10:22 AM EDT 08/24/2023 10:22 AM EDT us Monica Iraheta MD LAB BLOOD ORDERABLES Final Re sult [facility] [address] [place] [phone] * (ABNORMAL) Lipid Panel, Standard (08/24/2023 10:22 AM EDT) Triglycerides 213(H) <150 mg/dL [facility] Comment:Desirable Triglyceri de: less than 150 mg/dLBorderline High Triglyceride 150-199 mg/dLHigh Triglyceride: 200-499 mg/dLVery High Triglyceride: greater than or equal to 5OO mg/dL Cholesterol 178 <200 mg/dL [facility] Comment:Desirable Cholestero l: less than 200 mg/dLBorderline High Cholesterol: 200-239 mg/dLHigh Cholesterol: greater than 239 mg/dL LDL Cholesterol Calculated 97 <100 mg/dL [facility] Comment:Desirable LDL: less than 100 mg/dLNear Optimal/Above Optimal LDL: 110- 129 mg/dLBorderline High LDL: 130-159 mg/dLHigh LDL: 160-189 mg/dLVery High LDL: greater than or equal to 190 mg/dL HDL Cholesterol 39(L) >40 mg/dL [facility] Comment:Desirable HDL: great er than 40 mg/dL Note: This HDL assay may give artificially low results in patients with liver disease. Blood Venous blood specimen / Unknown 08/24/2023 10:22 AM EDT 08/24/2023 10:22 AM EDT us Monica Iraheta MD LAB BLOOD ORDERABLES Final Re sult [facility] [address] [place] [phone] from Last 3 Months or Most Recently Relevant to Health Maintenance Insurance , [facility] [address] [place] [address] [facility] Care Teams Yeast Stacker Relationship Specialty Start Date End Date Monica Iraheta MD [address] [place] [id number] PCP - General Family Medicine 04/10/21
[2024-06-27 09:26] LABS: MANUAL DIFF FLAG NO
[2024-06-27 09:57] LABS: Basophils Percent Auto 0.2 % (0-2); Eosinophils Percent Auto 0.6 % (0-4); Hematocrit 44.4 % (42.0-52.0); Hemoglobin 14.4 g/dl (14.0-18.0); Imm Gran Abs Auto 0.02 X10*3/uL (0.00-0.03); Imm Gran Pct Auto 0.4 % (0.0-0.4); Lymphocytes Absolute Auto 0.7 X10*3/uL (1.2-4.9); Lymphocytes Percent Auto 14.2 % (20-40); Mean Corpuscular HGB Conc 32.4 g/dl (31.0-36.0); Mean Corpuscular Hemoglobin 26.4 pg (27.0-33.0); Mean Corpuscular Volume 81.5 fL (80.0-98.0); Mean Platelet Volume 12.1 fL (9.4-12.4); Monocytes Absolute Auto 0.4 X10*3/uL (0.1-1.2); Monocytes Percent Auto 8.8 % (2-11); Neutrophils Absolute Auto 3.8 x10*3/uL (2.0-8.3); Neutrophils Percent Auto 75.8 % (45-73); Platelet Count 215 X10*3/uL (160-400); Red Blood Count 5.45 X10*6/uL (4.60-5.80)
[2024-06-27 10:04] LABS: INTERNATIONAL NORM RATIO 0.9 (0.9-1.1); Prothrombin Time 10.8 SEC (10.9-12.4)
[2024-06-27 10:26] LABS: Alanine Aminotransferase 20 U/L (0-40); Alkaline Phosphatase 98 U/L (39-117); Anion Gap 7 (12-20); Aspartate Amino Transferase 21 U/L (5-37); Bilirubin Total 0.3 mg/dL (0.0-1.0); Blood Urea Nitrogen 19 mg/dL (9-16); C Reactive Protein 0.59 mg/dL (< or = 0.50); Calcium 9.4 mg/dL (8.4-10.2); Carbon Dioxide 28 mmol/L (22-29); Chloride 108 mmol/L (96-108); Estimated Glomerular Filt Rate > 60; Glucose Random 87 mg/dL (60-115); Potassium 4.1 mmol/L (3.3-5.1); Sodium 139 mmol/L (135-145); Total Protein 7.3 g/dL (6.5-8.0)
[2024-06-27 10:42] LABS: Vitamin D 25-OH Total 16.2 ng/mL (>30)
[2024-06-27 10:54] LABS: Folate 6.6 ng/mL (> or = 4.0); Vitamin B12 173 pg/mL (200-900)
[2024-06-28 22:03] LABS: Transglutaminase IgA 230.7 U/mL
[2024-06-30 11:19] LABS: Class Alternaria alternata 0; Class Aspergillus fumigatus 0; Class Bermuda Grass 0/1; Class Birch 3; Class Cat Dander 3; Class Cladosporium herbarum 0; Class Cockroach 0; Class Common Ragweed 3; Class Cottonwood 0/1; Class Derm. pterony 0; Class Dermatophagoides farinae 0; Class Dog Dander 1; Class Elm 2; Class Maple Box Elder 1; Class Mountain Cedar 0/1; Class Mouse Urine Protein 0; Class Mugwort 0/1; Class Oak 3; Class Penicillium crysogenum 0; Class Rough Pigweed 0; Class Sheep Sorrel 0; Class Sycamore 0/1; Class Timothy Grass 0/1; Class Walnut Tree 2; Class White Ash 1; Class White Mulberry 0; D001 IgE D pteronyssinus <0.10 kU/L; D002 - IgE D farinae <0.10 kU/L; E001 - IgE Cat Dander 3.96 kU/L; E005 - IgE Dog Dander 0.43 kU/L; E072-IgE Mouse Urine <0.10 kU/L; G002 IgE Bermuda Grass 0.14 kU/L; G006 - IgE Timothy Grass 0.16 kU/L; I006-IgE Cockroach, German <0.10 kU/L; Immunoglobulin E 106 kU/L (<OR=114); M001 IgE Penicillium chrysogen <0.10 kU/L; M002 - IgE Cladosporium herbar <0.10 kU/L; M003 - IgE Aspergillus fumigat <0.10 kU/L; M006 - IgE Alternaria alternat <0.10 kU/L; T001 IgE Maple/Box Elder 0.57 kU/L; T006 - IgE Cedar, Mountain 0.17 kU/L; T007 - IgE Oak, White 8.47 kU/L; T008 IgE Elm, American 0.94 kU/L; T010 - IgE Walnut 0.87 kU/L; T011 - IgE Maple Leaf Sycamore 0.19 kU/L; T014 - IgE Cottonwood 0.26 kU/L; T015 - IgE Ash, White 0.65 kU/L; T070 - IgE White Mulberry <0.10 kU/L; W006 - IgE Mugwort 0.24 kU/L; W014 IgE Pigweed, Common <0.10 kU/L; W018 IgE Sheep Sorrel <0.10 kU/L
[2024-06-30 13:08] LABS: Zinc 45 mcg/dL (60-130)
== END 2024-06-27 08:58 | disposition home or self-care (01) ==
LOC: HO.LAB 08:57
PROVIDERS: Internal Medicine Pulmonary Disease; PCP Physician Assistant; Visit Provider Internal Medicine Gastroenterology
DX: K50.90 Crohn's disease, unspecified, without complications (principal); K90.0 Celiac disease; Z91.09 Other allergy status, other than to drugs and biological substances
CPT/HCPCS: 36415; 80053; 82306; 82607; 82746; 82785; 84630; 85025; 85610; 86003; 86140; 86364

== ENCOUNTER 2024-08-29 13:58 | Outpatient (AMB) | payer OTHER, SELFPAY ==
--- NOTE | 2024-08-29 14:03 | A.OFFPC_ITS ---
Vital Signs 08/29/24 14:12 Height 5 ft 6 in Weight 167 lb BMI 27.0 BP 120/76 Blood Pressure Location Lt brachial Position Sitting Pulse 81 Pulse Source Pulse Oximeter Temp 97.3 F Temp Source Temporal Artery Scan Pulse Oximetry (%) 98 Oxygen Delivery Method Room Air Intake Visit Reasons: Establish care- R/S from 08/27 Intake Note: The patient is here to reestablish care after previously being with Dr. Garcia. They have a history of Crohn's disease and anemia and will need a GI referral in [place] for continued care. The patient was previously seen by Dr. Monica Iraheta in [place], and medical records were requested today. Manager Of Disaster Recovery Required: No Allergies aspirin [Aspirin] Allergy (Intermediate, Verified 08/29/24 14:21) TACHYCARDIA, palpitations, tachycardia latex [LATEX] Allergy (Intermediate, Verified 08/29/24 14:21) RASH gluten Allergy (Verified 08/29/24 14:21) Unknown diphenhydramine [From BENADRYL] Adverse Reaction (Intermediate, Verified 08/29/24 14:21) TACHYCARDIA AND CHNAGES IN BEHAVOR Medication List - Last Reconciled 08/29/24 by Ishmael Harley PA-C albuterol sulfate 90 mcg/actuation 2 puffs inhalation Q4-6H PRN cholecalciferol (vitamin D3) 250 mcg PO 2XW 90 days cyanocobalamin (vitamin B-12) (Vitamin B-12) 1,000 mcg PO DAILY dexlansoprazole (Dexilant) 30 mg PO QAM 90 days fluticasone furoate-vilanterol 200-25 mcg/dose (Breo Ellipta) 1 inh inhalation DAILY 30 days folic acid 1 mg PO DAILY infliximab-dyyb (Inflectra) mg IV Q6W Tobacco use date assessed: 08/29/24 Dental Screening Dental Screen Date: 08/29/24 Did you have a dental visit in the last 12 months?: Yes Did you have a dental problem in the last 6 months where you did not have access to dental care?: No Was dental information given to patient?: Patient has dentist HPI Establish care- R/S from 08/27 HPI Details Patient is a 44 male here today for establish care visit. Patient has a past medical history significant for Crohn's disease diagnosed in 1997 any a with fibrous stenotic small bowel disease, iron-deficiency anemia. Inflammatory bowel disease: He has a known history of Crohn's disease since childhood, experiencing challenges in maintaining access to medications, particularly Dexilant, due to insurance issues. The patient affirms a positive response to bromachate administered every six weeks for his gastrointestinal symptoms. In terms of respiratory health, asthma management has been inconsistent, as inhaler availability has been affected by a lapse in insurance coverage. Furthermore, the patient is undergoing a pre-operative phase for a planned hernia repair surgery, inquired to take place within the next month. Previous laboratory investigations revealed anemia which has since stabilized. [facility] Medical History (Updated 08/30/24 @ 07:51 by Ishmael Harley PA-C) COVID-19 virus infection Crohn's disease Asthma Abdominal pain despite therapy for Crohn's disease Surgical History History of laparoscopic cholecystectomy (09/01/22) H/O abdominal surgery Family History Father Hypertension Mother Diabetes Maternal Grandfather Renal cancer Brother In good health Brother In good health Sister In good health Son In good health Son In good health Social History Household Members: Family Housing: House Do you presently have visiting nurse or other home services: No Alcohol intake: never Patient Tobacco Use Status: Never used Tobacco e-Cigarette/Vaping Use: Never Used Second Hand Smoke Exposure: No service: No Current occupational status: employed Cognitive needs: No Hearing needs: No Vision needs: No Questionnaire PHQ-9 Over the last 2 weeks, how often have you been bothered by any of the following problems? 1. Little interest or pleasure in doing things: not at all 2. Feeling down, depressed, or hopeless: not at all 3. Trouble falling or staying asleep, or sleeping too much: not at all 4. Feeling tired or having little energy: not at all 5. Poor appetite or overeating: not at all 6. Feeling bad about yourself - or that you are a failure or have let yourself or your family down: not at all 7. Trouble concentrating on things, such as reading the newspaper or watching television: not at all 8. Moving or speaking so slowly that other people could have noticed. Or the opposite - being so fidgety or restless that you have been moving around a lot more than usual: not at all 9. Thoughts that you would be better off or of hurting yourself in some way: not at all Total score: 0 Depression Screening Interpretation: Negative Depression Screening Done: Yes 23840 - PHQ-9 Billing: Yes Source: Developed by Drs. Jaleel Lemons, Araceli Garcia, Fabio Wellington and colleagues, with an educational juan diego from [employer]. Thrive Questionnaire Date Thrive assessed: 08/29/24 I am a: Patient What is your living situation today?: I have a steady place to live Within the past 12 months, did the food you bought not last and you didn't have the money to get more?: Never true Within the past 12 months, did you worry whether your food would run out before you got money to buy more?: Never true Do you have trouble paying for medicines?: I choose not to answer this question Do you have trouble getting transportation to medical appointments?: No Do you have trouble paying your heating and electricity bill?: I choose not to answer this question Do you have trouble taking care of your child, family member or friend?: No Do you have trouble with day-to-day activities such as bathing, preparing meals, shopping, managing finances, etc.?: No Are you currently unemployed and looking for a job?: No Are you interested in more education?: No Please select the resources that you would like help with: None Currently or been in a relationship where the following occur: No concerns reported THRIVE Score: 0 AUDIT C Alcohol Use Questionnaire (AUDIT-C) 1. How often do you have a drink containing alcohol?: Never 3. How often do you have six or more drinks on one occasion?: Never Total Score: 0 AMBROSIO-7 AMB Questionnaire AMBROSIO-7 Date AMBROSIO - 7 assessed: 08/29/24 Feeling nervous, anxious, or on edge: 0 = Not at all Not being able to stop or control worryin = Not at all Worrying too much about different things: 0 = Not at all Trouble relaxin = Not at all Being so restless that it is hard to sit still: 0 = Not at all Becoming easily annoyed or irritable: 0 = Not at all Feeling afraid as if something awful might happen: 0 = Not at all Total AMBROSIO-7 score (0-4 normal; 5-9 mild; 10-14 moderate; 15-21 severe): 0 Source: Developed by Drs. Jaleel Lemons, Araceli Garcia, Fabio Wellington and colleagues, with an educational juan diego from [employer]. AMBROSIO-7 Assessment Billing AMBROSIO-7 Assessment Tool: AMBROSIO-7 Assessment 72405 Review of Systems Const Denies headache(s) Eyes Denies loss of vision ENT Denies vertigo, Denies dizziness, Denies headache(s) and Denies sore throat Card Denies chest pain, Denies leg edema and Denies lightheadedness Resp Denies cough, Denies hemoptysis and Denies wheezing GI Denies abdominal pain, Denies melena, Denies constipation, Denies diarrhea and Denies vomiting Denies dysuria, Denies urinary frequency and Denies urinary urgency Musc Denies arthralgias, Denies joint swelling, Denies numbness and Denies tingling Neuro Denies Abnormal speech present, Denies behavioral changes, Denies vertigo, Denies dizziness, Denies headache(s), Denies loss of vision, Denies memory loss, Denies numbness and Denies tingling Psych Denies anxiety, Denies behavioral changes, Denies depression, Denies memory loss and Denies panic attacks Jony/Lymph Denies easy bleeding and Denies easy bruising Aller/Immun Denies wheezing Physical exam (Primary Care) Vital Signs: Last Vital Signs Temp 97.3 F 08/29/24 14:12 Pulse 81 08/29/24 14:12 BP 120/76 08/29/24 14:12 Pulse Ox 98 08/29/24 14:12 Oxygen Delivery Method Room Air 08/29/24 14:12 BMI result Body Mass Index 27.0 Tobacco/Smoking Status: Tobacco use Status Tobacco use date assessed 08/29/24 08/29/24 14:22 Patient Tobacco Use Status Never used Tobacco 08/29/24 14:03 e-Cigarette/Vaping Use Never Used 08/29/24 14:22 PHQ-9: PHQ-9 Score PHQ-9: Total score 0 08/29/24 14:25 Depression Screening Interpretation: Negative Thrive Assessment: Date of Thrive Assessment Date Thrive assessed 08/29/24 08/29/24 14:20 Currently or been in a relationship where the following occur: No concerns reported Const General: healthy appearing, no acute distress, alert and awake Nutritional Appearance: well nourished Orientation/consciousness: oriented to person, oriented to place and oriented to time HENMT Ears: TM's normal bilaterally General nose exam: Normal nasal mucous membranes and turbinates present Eyes Conjunctivae: conjunctivae normal Sclerae: sclerae normal Pupils: Equal, round and reactive pupils present Neck Neck: Yes no lymphadenopathy and Yes no JVD Thyroid: Thyroid normal Carotids: no bruits Resp Effort & Inspection: normal respiratory effort and not tachypneic Auscultation: no crackles, no rales, no rhonchi and no wheezes Cardio Rate: regular rate Rhythm: regular rhythm Heart sounds: no murmurs and normal S1 and S2 GI Palpation (GI): Soft to palpation, nontender, no hepatomegaly and no splenomegaly Auscultation: normal bowel sounds Skin General skin exam: no rashes or lesions noted and dry skin Neuro General: oriented to person, oriented to place and oriented to time Cranial nerves: Yes Equal, round and reactive pupils present Speech: No Abnormal speech present Gait exam (Neuro): Normal gait present Motor exam (neuro): no tremor noted Extrem Right upper extremity: full ROM Left upper extremity: full ROM Right lower extremity: full ROM; no edema Left lower extremity: full ROM; no edema Psych Mental Status: mental status grossly normal Speech and movement: Normal speech and movement present Affect: normal affect Attitude: cooperative Thought process: Normal thought process present Coding Level of Care Code New Pt Level 4 (14510) Diagnoses Crohn's disease of small intestine with complication K50.019 Gastrointestinal tract location: small intestine Digestive disease complication type: unspecified complication Moderate persistent asthma without complication J45.40 Asthma severity: moderate Asthma persistence: persistent Asthma complication type: uncomplicated Hernia K46.9 Environmental allergies Z91.09 Pre-op evaluation Z01.818 Additional Codes AMBROSIO-7 Assessment Billing - AMBROSIO-7 Assessment Tool: AMBROSIO-7 Assessment 77117 ([id number]) PHQ-9 - 10847 - PHQ-9 Billing: Yes ([id number]) Assessment & Plan Assessment & Plan (1) Crohn disease: Code(s): K50.90 - Crohn's disease, unspecified, without complications Category: Medical Qualifiers: Gastrointestinal tract location: small intestine Digestive disease complication type: unspecified complication Qualified Code(s): K50.019 - Crohn's disease of small intestine with unspecified complications Plan: Will continue to see [facility] gastroenterology in continue treatment to reduce any relapses in his inflammatory bowel issues. Most recent labs stable particularly he has anemia. (2) Asthma: Code(s): J45.909 - Unspecified asthma, uncomplicated Category: Medical Qualifiers: Asthma severity: moderate Asthma persistence: persistent Asthma complication type: uncomplicated Qualified Code(s): J45.40 - Moderate persistent asthma, uncomplicated Plan: Patient reports his asthma is fairly well controlled with maintenance inhaler and p.r.n. use of his albuterol inhaler. Was previously seeing pulmonology though due to a lapse in insurance has lost follow-up. Needs refills on his maintenance inhaler and albuterol. He reports his allergies due affect his asthma. Will consider montelukast in the future if needed. (3) Hernia: Code(s): K46.9 - Unspecified abdominal hernia without obstruction or gangrene Category: Medical Plan: Has been noted to have an essential hernia he would like repaired. Does have upcoming surgery at [facility] scheduled and will likely need preop. Will send patient for preop labs. (4) Environmental allergies: Code(s): Z91.09 - Other allergy status, other than to drugs and biological substances Category: Medical Plan: Manage with loratadine, re-assess long-term ENT alternatives. (5) Pre-op evaluation: Code(s): Z01.818 - Encounter for other preprocedural examination Category: Medical Plan: As above is due for an incisional hernia repair at [facility] in the next month. From PCP standpoint patient's vitals in most recent labs stable. Patient is medically clear for needed hernia surgery. Orders: Orders Complete Blood Count no Diff 08/29/24 Z01.818 - Encounter for other preprocedural examination Comprehensive Met. Panel 08/29/24 Z01.818 - Encounter for other preprocedural examination Referrals Gastroenterology Referral K50.90 - Crohn's disease, unspecified, without complications Medications: New loratadine (Allergy Relief (loratadine)) 10 mg PO DAILY 90 tabs 1RF 90 days Z91.09 - Other allergy status, other than to drugs and biological substances Refilled albuterol sulfate 90 mcg/actuation 2 puffs inhalation Q4-6H PRN 1 inhaler 6RF shortness of breath or wheezing J45.909 - Unspecified asthma, uncomplicated fluticasone furoate-vilanterol 200-25 mcg/dose (Breo Ellipta) 1 inh inhalation DAILY 1 inhaler 6RF 30 days J45.909 - Unspecified asthma, uncomplicated dexlansoprazole (Dexilant) 30 mg PO QAM 90 caps 1RF 90 days K21.9 - Gastro- esophageal reflux disease without esophagitis
[2024-08-29 14:12] VITALS: BP 120/76; PULSE 81; TEMP 36.3; O2SAT 98; BMI 27.0
--- OUTSIDE RECORDS SUMMARY | 2024-08-29 16:49 | XMS_ITS | Clinical Summary ---
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 1 each 11 4 Active cetirizine (ZyrTEC) 10 MG tablet Take 1 tablet (10 mg) by mouth in the morning. 90 tablet 1 4 Active cyanocobalamin (Vitamin B-12) 1000 MCG tablet Take 1 tablet (1,000 mcg) by mouth in the morning. 90 tablet 1 4 Active ergocalciferol (Vitamin D2) 1.25 MG (58878 UT) capsule Take 1 capsule (1.25 mg) [...] your housing situation today? I have pilar townsend 11/30/[address] you li [...] Full Mouth 1982 Alcohol/Substance Use Screening 1994 Family Planning (PISQ) 1997 Hepatitis B Vaccines (1 of 3 - 19+ 3-dose series) 2001 Depression Screening 09/14/2023 09/13/2022, 09/13/2022 COVID-19 Vaccine ( - 2023-2 5 season) 2024 11/04/2020, 10/07/2020 Influenza Vaccine (#1) 2024 SDOH Screening 11/29/2024 11/30/2023 Tobacco Screening 11/29/2024 11/30/2023 Lipid Panel 08/23/2028 08/24/2023, 08/28/2021 Zoster Vaccines (1 of 2) 2032 DTaP/Tdap/Td Vaccines (2 - T d or Tdap) 08/09/2033 08/10/2023 RSV Patients and Patients Aged 60 years or older (1 - 1-dose 75+ series) 2057 Pneumococcal Vaccine: Pediatrics (0 to 5 Years) and At-Risk Patients (6 to 49) Years) Aged Out 08/10/2023 No longer eligible [...] AM EDT) Hepatitis C Antibody Nonreactive Nonreactive [facility] Comment:Antibodies to HCV no t detected; does not exclude early acuteHCV infection. Blood Venous blood specimen / Unknown 08/24/2023 10:22 AM EDT 08/24/2023 10:22 AM EDT us Monica Iraheta MD LAB BLOOD ORDERABLES Final Re sult [facility] [address] [place] [address] [phone] * HIV-1/2 Antigen and Antibodies, Fourth Generation, with Reflexes (08/24/2023 10:22 AM EDT) HIV AB/AG Nonreactive Nonreactive [facility] Comment:HIV-1 p24 Ag and/or HIV-1/HIV-2 Ab not detected.A test result that is nonreactive does not exclude thepossibility of exposure to or infection with HIV-1 and/orHIV-2. Nonreactive results in this assay for individualswith prior exposure to HIV-1 and/or HIV-2 may be due toantigen and antibody levels that are below the limit ofdetection of this assay.The [employer] HIV Ag/Ab Combo assay result andsupplemental assay results should be interpreted inconjunction with the patient's clinical presentation,history and other laboratory results. If the results areinconsistent with clinical evidence, additional testing issuggested to confirm the result. Blood Venous blood specimen / Unknown 08/24/2023 10:22 AM EDT 08/24/2023 10:22 AM EDT us Monica Iraheta MD LAB BLOOD ORDERABLES Final Re sult [facility] [address] [place] [phone] * (ABNORMAL) Lipid Panel, Standard (08/24/2023 10:22 AM EDT) Triglycerides 213(H) <150 mg/dL [facility] Comment:Desirable Triglyceri de: less than 150 mg/dLBorderline High Triglyceride 150-199 mg/dLHigh Triglyceride: 200-499 mg/dLVery High Triglyceride: greater than or equal to 5OO mg/dL Cholesterol 178 <200 mg/dL [facility] Comment:Desirable Cholestero l: less than 200 mg/dLBorderline High Cholesterol: 200-239 mg/dLHigh Cholesterol: greater than 239 mg/dL LDL Cholesterol Calculated 97 <100 mg/dL [facility] Comment:Desirable LDL: less than 100 mg/dLNear Optimal/Above Optimal LDL: 110- 129 mg/dLBorderline High LDL: 130-159 mg/dLHigh LDL: 160-189 mg/dLVery High LDL: greater than or equal to 190 mg/dL HDL Cholesterol 39(L) >40 mg/dL [facility] Comment:Desirable HDL: great er than 40 mg/dL Note: This HDL assay may give artificially low results in patients with liver disease. Blood Venous blood specimen / Unknown 08/24/2023 10:22 AM EDT 08/24/2023 10:22 AM EDT us Monica Iraheta MD LAB BLOOD ORDERABLES Final Re sult [facility] [address] [place] [phone] [phone] from Last 3 Months or Most Recently Relevant to Health Maintenance Insurance , [facility] [address] [place] [address] [facility] ADULT
== END 2024-08-29 14:42 | disposition home or self-care (01) ==
LOC: HO.HMCH 13:59
PROVIDERS: PCP Physician Assistant; Visit Provider Physician Assistant
DX: K50.019 Crohn's disease of small intestine with unspecified complications (principal); J45.40 Moderate persistent asthma, uncomplicated; K46.9 Unspecified abdominal hernia without obstruction or gangrene; Z91.09 Other allergy status, other than to drugs and biological substances; Z01.818 Encounter for other preprocedural examination

== ENCOUNTER → 2024-08-29 13:58 | Outpatient (BNVA) | payer OTHER, SELFPAY | PROVIDERS: PCP Physician Assistant; Visit Provider Physician Assistant | DX: Z01.818 Encounter for other preprocedural examination (principal); K50.019 Crohn's disease of small intestine with unspecified complications; J45.40 Moderate persistent asthma, uncomplicated; K46.9 Unspecified abdominal hernia without obstruction or gangrene; Z91.09 Other allergy status, other than to drugs and biological substances | CPT/HCPCS: 96127; 99202 ==

== ENCOUNTER 2024-11-13 08:04 | Outpatient (AMB) | payer OTHER, SELFPAY ==
--- NOTE | 2024-11-13 08:07 | A.OFFVIS_ITS ---
Vital Signs 11/13/24 08:11 Height 5 ft 6 in Weight 168 lb BMI 27.1 BP 103/63 Blood Pressure Location Lt brachial Position Sitting Pulse 72 Pulse Oximetry (%) 98 Oxygen Delivery Method Room Air Oxygen Flow Rate 165 Intake Visit Reasons: Hx of Chron's - Chronic absorption Issue Intake Note: Patient follow up for Celiac disease, and Hx of Chron's - Chronic absorption Issue and lab results. Abdominal MRI was cancel due ins issues. Patient cc: abdominal discomfort with bloating, and acid reflux at night time. Patient needed refill for Dexilant. Denies any other GI issues. 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: No Accompanied by: Self / Same As Patient Allergies aspirin [Aspirin] Allergy (Intermediate, Verified 11/13/24 08:07) TACHYCARDIA, palpitations, tachycardia latex [LATEX] Allergy (Intermediate, Verified 11/13/24 08:07) RASH gluten Allergy (Verified 11/13/24 08:07) Unknown diphenhydramine [From BENADRYL] Adverse Reaction (Intermediate, Verified 11/13/24 08:07) TACHYCARDIA AND CHNAGES IN BEHAVOR Medication List - Last Reconciled 11/13/24 by Vashti Augustin MD albuterol sulfate 90 mcg/actuation 2 puffs inhalation Q4-6H PRN cholecalciferol (vitamin D3) 250 mcg PO 2XW 90 days cyanocobalamin (vitamin B-12) (Vitamin B-12) 1,000 mcg PO DAILY dexlansoprazole (Dexilant) 30 mg PO QAM 90 days fluticasone furoate-vilanterol 200-25 mcg/dose (Breo Ellipta) 1 inh inhalation DAILY 30 days folic acid 1 mg PO DAILY infliximab-dyyb (Inflectra) mg IV Q6W loratadine (Allergy Relief (loratadine)) 10 mg PO DAILY 90 days HPI HPI Hx of Chron's - Chronic absorption Issue: Details: GI clinic visit for this 44 YM for follow up of celiac and fibrostenotic Crohn's disease status post surgery x 3 (stricturoplasty and small bowel resection). He has been going to [facility] for Remicade injections every 6 weeks. Has a new insurance and would like to switch. Has 1 more appt for Remicade at [facility] - on 11/28/24 and would like to schedule future infusions at [facility]. Also he is due for a colonoscopy. IBD SUMMARY YEAR OF DIAGNOSIS: (symptoms since age 17 yrs) DISEASE EXTENT: Small bowel and colon LAST COLONOSCOPY FINDINGS: 2021 NEXT COLON DUE: Now EXTRAINTESTINAL MANIFESTATIONS: Denies mouth ulcers, skin rash. Complains of blurred vision and joint pains. GI SURGERY: Two GI surgeries in [place] and one in [facility] - last surgery 8 yrs ago PAST TREATMENTS: Steroids, Asacol, Entyvio CURRENT THERAPY: Remicade every 6 weeks, Dexilent for GERD He is supposed to take a pill and has not been doing so VACCINATIONS: Flu shot: None Hep A/B serology /vaccination: Unsure if he is vaccinated for Hep A and B TB screen: TODAY'S VISIT: Patient follow up for Celiac disease, and Hx of Crohns - Chronic absorption Issue and lab results. Abdominal MRI was cancel due insurance issues. Complains of intermittent abdominal pain. Rectal bleeding for the past 7 - 10 days Blood is BR and separate from the stools Has a BM daily - usually normal - sometimes hard or soft. Complains of heartburn 4 days a week not always with intake of meals Notes nocturnal regurgitation of acidic fluid Patient denies symptoms of dysphagia, nausea, vomiting, change in appetite or weight. Denies recent change in bowel habits, constipation, diarrhea, black stools or rectal bleeding. Has a normal BM daily Denies gas or bloating. Takes Remicade every 6 weeks at [facility] (missed his last dose) Scheduled for an EGD and colon at [facility] x 2 - went to [facility] and unable to find the office and left Does not want to go to [facility] anymore. Denies being on a Gluten free diet - finds it hard to follow - tries his best to get Gluten free food Patient denies major cardiac or pulmonary problems, loud snoring or sleep apnea Denies problems with anesthesia in the past. Denies being on chronic anticoagulation. Patient denies known family history of IBD, colon polyps, colon cancer or other GI malignancies. 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 Pepe at [facility] which showed an end-to-side ileo-colic anastomosis - felt a bit tight on intubation without iza stricture. Multiple 1-2 mm pseudo polyps in the descending colon Small internal and external hemorrhoids. Pt was advised further evaluation with MR enterography. LABS IN [facility] : Reviewed IMAGING STUDIES: 08/[address] SCAN SHOWED: GASTROINTESTINAL TRACT: The patient is again noted to have undergone small bowel resection with chain sutures in the epigastric region. There is a dilated loop of small bowel just proximal to the surgical staple anastomotic line, in the epigastrium, measuring up to 4.1 cm in diameter. At the pelvic brim, there is an additional dilated loop of small bowel adjacent to surgical jose, measuring up to 3.6 cm, with equalization of internal contents. No significant perienteric infiltration is evident. There is no free air., adjacent to the surgical anastomotic line, there is a loop of small bowel which although not dilated appears fecalized, and is more distended than on 10/14/2021 The distal ileum is collapsed, but demonstrates submucosal lipomatous infiltration, consistent with inflammatory bowel disease, particularly Crohn's disease. The rectum is distended with fecal material. ABDOMINAL WALL: A fat-containing anterior abdominal wall hernias are again evident, unchanged, 10/14/[address] SCAN SHOWED: The liver demonstrates normal size, contour and attenuation. Approximately 1.5 cm gallstone noted within otherwise unremarkable appearing gallbladder. Similar postsurgical changes of the small bowel. Similar prominence of the single loop of small bowel within the left abdomen. There is no evidence of an obstructive process. There is a mild to moderate colonic stool burden. Fat-containing ventral abdominal hernias are again noted and appear relatively similar. PAST GI HISTORY BY REVIEW OF MEDICAL RECORDS: 10/15/21 PT WAS SEEN DURING HOSPITALIZATION AT [facility]: Chief Complaint: Rectal bleeding, abdominal pain 41 YM with celiac disease and fibrostenotic Crohn's disease status post surgery x 3 (stricturoplasty and small bowel resection) seen at [facility] ED on 10/14/21 with 3 days of rectal bleeding and abdominal pain.? The patient reported his been doing well until the last 3-4 days when he started to feel dark blood coming out with stool with bowel movement mainly.? No episodes of bleeding bright red blood.? Denies any fever, chills but reports having lower abdominal pain which he denies usually having.? Pain was pressure-like and not affected by eating. Pt noted dizziness while he was taking a shower. Patient reports being diagnosed with Crohn's disease 16 years ago. He has had 3 surgeries (1st two surgeries were performed at [facility] - stricturoplasty and he had 6 inches of small bowel removed during the last surgery at [facility] 4-5 yrs ago). Pt has been on Remicade every 6 weeks - last infusion on October 03.? He follows with Dr Pleitez, [facility] but decided to come today for worsening symptoms.? Blood work showed mild iron deficiency anemia but overall close to his baseline. Pt was admitted for further evaluation and treatment and started on IV prednisone. Pt reports getting an iron infusion a month ago - hx of chronic MARK. 3?2021 patient had a colonoscopy performed by Dr. Pepe at [facility] which showed an end-to-side ED okay colic anastomosis - felt a bit tight on intubation without iza stricture. Multiple 1-2 mm pseudo polyps in the descending colon Small internal and external hemorrhoids. Pt was advised further evaluation with MR enterography. Patient takes Dexilant for heartburn and denies dysphagia, nausea, vomiting, change in appetite or weight. Denies recent change in bowel habits or diarrhea.. Denies being on chronic anticoagulation. Patient denies smoking or EtOH abuse. Patient works in [employer] and has 2 children (16 & 17 yrs old) Patient denies known family history of IBD colon polyps, colon cancer or other GI malignancies. PAST EGD/COLONOSCOPY: 09/2018 EGD AND COLONOSCOPY WERE PERFORMED BY DR. MACKEY: Esophagus: GE junction at 42 cm. No esophagitis or Moody?s. Stomach: Mild gastric erythema. Biopsies were obtained. Grade 2 flap valve on retroflexed examination of the cardia. Duodenum: Abormal bulb and descending duodenum with mucosal flattening and cobblestoning, bx taken Colonoscopy Findings: Ileocolonic anastomosis: small bowel could not be entered due to edema, inflammation, bx taken from the area Ascending Colon ? normal Transverse Colon - normal bx from above 2 sites in seperate jar Descending Colon ? 1-2 pseudopolyps seen Sigmoid Colon ? normal Rectum ? normal Anorectum - retroflexion with grade I moderate sized hemorrhoids with some contact bleeding, minor BIOPSIES SHOWED: A. Duodenal bx's B. Stomach bx's C. Ileocolonic anastomosis bx's D. Right sided and transverse colon bx's E. Left sided colon bx's F. Rectal bx's DIAGNOSIS A. Duodenum, biopsy: Duodenal mucosa with focal complete effacement of villous architecture and increased intraepithelial lymphocytes. See comment. B. Stomach, biopsy: Moderate chronic inactive gastritis; no Helicobacter organisms seen. C. Ileocolonic anastomosis, biopsy: Colonic mucosa with chronic, moderately active, inflammation. D. Colon, right and transverse, biopsy: Chronic inactive colitis. E. Colon, left, biopsy: Chronic inactive colitis. F. Rectum, biopsy: Colonic mucosa within normal limits. COMMENT: The patient's history of Crohn's is noted. A few small loose gra nulomas are seen in part D. No dysplasia is seen in any of the biopsies. The findings in the duodenum raise the possibility of concurrent celiac disease; however, upper tract involvement by Crohn's can give the same histologic picture [facility] Medical History (Updated 08/30/24 @ 07:51 by Ishmael Harely PA-C) COVID-19 virus infection Crohn's disease Asthma Abdominal pain despite therapy for Crohn's disease Surgical History History of laparoscopic cholecystectomy (09/01/22) H/O abdominal surgery Family History Father Hypertension Mother Diabetes Maternal Grandfather Renal cancer Brother In good health Brother In good health Sister In good health Son In good health Son In good health Social History Household Members: Family Housing: House Do you presently have visiting nurse or other home services: No Alcohol intake: never Patient Tobacco Use Status: Never used Tobacco e-Cigarette/Vaping Use: Never Used Second Hand Smoke Exposure: No service: No Current occupational status: employed Cognitive needs: No Hearing needs: No Vision needs: No Physical Exam Vital Signs: Last Vital Signs Pulse 72 11/13/24 08:11 BP 103/63 11/13/24 08:11 Pulse Ox 98 11/13/24 08:11 Oxygen Delivery Method Room Air 11/13/24 08:11 Oxygen Flow Rate 165 11/13/24 08:11 BMI result Body Mass Index 27.1 Const General: no acute distress Nutritional Appearance: overweight Orientation/consciousness: patient oriented x3 Limitations: no limitations HEENT Head: Yes normal to inspection Ears: hearing grossly normal bilaterally Mouth: Normal oral and palatal mucosa present Eyes Sclerae: sclerae normal Pupils: Equal, round and reactive pupils present Neck Neck: Yes normal visual inspection Chest Chest palpation & inspection: normal inspection of the chest Resp Effort & Inspection: normal respiratory effort Auscultation: clear to auscultation bilaterally Cardio Palpation: normal PMI Rate: regular rate Rhythm: regular rhythm Heart sounds: S1 normal heart sound present, S2 normal heart sound present and no murmurs GI Inspection: Yes scar (midline scar of past surgeries) and Yes visible herniation Palpation (GI): Soft to palpation, nontender and No hepatosplenomegaly present Auscultation: normal bowel sounds Rectal Exam - Male: Yes deferred Skin General skin exam: no rashes or lesions noted Neuro General: patient oriented x3, gait normal and moves all extremities Cranial nerves: Yes Equal, round and reactive pupils present Psych Appearance: grossly normal Mental Status: mental status grossly normal Immunizations Havrix (PF) 1,440 MAGALYS unit/mL intramuscular syringe Performing Provider: Vashti Augustin MD Performing Location: [facility] Administered by: Lyndsay Maxwell RN on 11/13/24 08:58 Dose Route Admin Location Dispensed Lot Number Expiration Date [facility] Chrome Worker 1 mL IM Left Deltoid 1 mL [id number] 05/10/25 27769-114-88 [employer] VIS Given Date VIS Provided VIS Publication Date 11/13/24 Single Vaccine 21 Eligibility Eligibility Date Funding Source Not VFC Eligible 11/13/24 Private Engerix-B (PF) 20 mcg/mL intramuscular suspension Performing Provider: Vashti Augustin MD Performing Location: [facility] Administered by: Lyndsay Maxwell RN on 11/13/24 08:58 Dose Route Admin Location Dispensed Lot Number Expiration Date [facility] Chrome Worker 1 mL IM Right Deltoid 1 mL [id number] 01/01/27 [id number] NovarraITHKLINE VIS Given Date VIS Provided VIS Publication Date 11/13/24 Single Vaccine 22 Eligibility Eligibility Date Funding Source Not VFC Eligible 11/13/24 Private Assessment & Plan Assessment & Plan (1) Celiac disease: Code(s): K90.0 - Celiac disease Category: Medical (2) Crohn disease: Code(s): K50.90 - Crohn's disease, unspecified, without complications Category: Medical Qualifiers: Digestive disease complication type: unspecified complication Gastrointestinal tract location: small intestine Qualified Code(s): K50.019 - Crohn's disease of small intestine with unspecified complications (3) Anemia: Code(s): D64.9 - Anemia, unspecified Category: Medical (4) GERD (gastroesophageal reflux disease): Code(s): K21.9 - Gastro-esophageal reflux disease without esophagitis Category: Medical Orders: Orders Complete Blood Count no Diff Today K50.019 - Crohn's disease of small intestine with unspecified complications Vitamin B12 and Folate Today K50.019 - Crohn's disease of small intestine with unspecified complications Prometheus ANSER IFX Today K50.019 - Crohn's disease of small intestine with unspecified complications Hepatitis B Adult Immunization Today Z23 - Encounter for immunization Comprehensive Met. Panel Today K50.019 - Crohn's disease of small intestine with unspecified complications T Spot TB Today K50.019 - Crohn's disease of small intestine with unspecified complications Comprehensive Met. Panel 08/29/24 Z01.818 - Encounter for other preprocedural examination MR abdomen wo/w con Today K50.019 - Crohn's disease of small intestine with unspecified complications Hepatitis A Adult Immunization Today Z23 - Encounter for immunization Medications: New Havrix (PF) (hepatitis A virus vaccine (PF)) 1 mL IM ONCE 1 mL 0RF NS Z23 - Encounter for immunization Engerix-B (PF) (hepatitis B virus vacc.rec(PF)) 1 mL IM ONCE 1 mL 0RF NS Z23 - Encounter for immunization Refilled cholecalciferol (vitamin D3) 250 mcg PO 2XW 26 caps 1RF 90 days E55.9 - Vitamin D deficiency, unspecified cyanocobalamin (vitamin B-12) (Vitamin B-12) 1,000 mcg PO DAILY 90 tabs 3RF dexlansoprazole (Dexilant) 30 mg PO QAM 90 caps 1RF 90 days K21.9 - Gastro- esophageal reflux disease without esophagitis Coding Level of Care Code Est Pt Level 4 (77001) Complex EM visit Add On G2211 Diagnoses Celiac disease K90.0 Crohn's disease of small intestine with complication K50.019 Digestive disease complication type: unspecified complication Gastrointestinal tract location: small intestine Anemia D64.9 GERD (gastroesophageal reflux disease) K21.9 Time Spent (min) 30
[2024-11-13 08:11] VITALS: BP 103/63; PULSE 72; O2SAT 98; BMI 27.1
--- OUTSIDE RECORDS SUMMARY | 2024-11-13 08:11 | XMS_ITS | Clinical Summary ---
Author Organization [employer] Address [address] [place] [address] Care Team Providers Care Natural Resources Manager Name Role Phone Unavailable Primary Care Provider [...] 4 Active ergocalciferol (Vitamin D2) 1.25 MG (59061 UT) capsule Take 1 capsule (1.25 mg) [...] small intestine with complica tion 05/25/2022 Immunizations Immunization Administration Dates Next Due Pneumococcal Conjugate PCV [...] is your housing situation today? I have iplar townsend 11/30/[address] you [...] Bitewings 1982 Dental X-Ray: Full Mouth 1982 Disability Screening 1982 Alcohol/Substance Use Screening 1994 Family Planning (PISQ) 1997 Hepatitis B Vaccines (1 of 3 - 19+ 3-dose series) 2001 Depression Screening 09/14/2023 09/13/2022, 09/13/2022 COVID-19 Vaccine ( - 2023-2 5 season) 2024 11/04/2020, 10/07/2020 SDOH Screening 11/29/2024 11/30/2023 Tobacco Screening 11/29/2024 11/30/2023 Influenza Vaccine (Season Ended) 2025 Lipid Panel 08/23/2028 08/24/2023, 08/28/2021 Zoster Vaccines [...] patient's age to complete this topic Meningococcal B Vaccine Aged Out No l onger eligible based on patient's age to complete [...] AM EDT) Hepatitis C Antibody Nonreactive Nonreactive [facility] Comment:Antibodies to HCV no t detected; does not exclude early acuteHCV infection. Blood Venous blood specimen / Unknown 08/24/2023 10:22 AM EDT 08/24/2023 10:22 AM EDT us Monica Iraheta MD LAB BLOOD ORDERABLES Final Re sult [facility] [address] [place] [phone] * HIV-1/2 Antigen and Antibodies, Fourth Generation, with Reflexes (08/24/2023 10:22 AM EDT) HIV AB/AG Nonreactive Nonreactive [facility] Comment:HIV-1 p24 Ag and/or HIV-1/HIV-2 Ab not detected.A test result that is nonreactive does not exclude thepossibility of exposure to or infection with HIV-1 and/orHIV-2. Nonreactive results in this assay for individualswith prior exposure to HIV-1 and/or HIV-2 may be due toantigen and antibody levels that are below the limit ofdetection of this assay.The [employer] HIV Ag/Ab Combo assay result andsupplemental assay results should be interpreted inconjunction with the patient's clinical presentation,history and other laboratory results. If the results areinconsistent with clinical evidence, additional testing issuggested to confirm the result. Blood Venous blood specimen / Unknown 08/24/2023 10:22 AM EDT 08/24/2023 10:22 AM EDT us Monica Iraheta MD LAB BLOOD ORDERABLES Final Re sult [facility] [address] [place] [phone] * (ABNORMAL) Lipid Panel, Standard (08/24/2023 10:22 AM EDT) Triglycerides 213(H) <150 mg/dL [facility] Comment:Desirable Triglyceri de: less than 150 mg/dLBorderline High Triglyceride 150-199 mg/dLHigh Triglyceride: 200-499 mg/dLVery High Triglyceride: greater than or equal to 5OO mg/dL Cholesterol 178 <200 mg/dL [facility] Comment:Desirable Cholestero l: less than 200 mg/dLBorderline High Cholesterol: 200-239 mg/dLHigh Cholesterol: greater than 239 mg/dL LDL Cholesterol Calculated 97 <100 mg/dL [facility] Comment:Desirable LDL: less than 100 mg/dLNear Optimal/Above Optimal LDL: 110- 129 mg/dLBorderline High LDL: 130-159 mg/dLHigh LDL: 160-189 mg/dLVery High LDL: greater than or equal to 190 mg/dL HDL Cholesterol 39(L) >40 mg/dL [facility] Comment:Desirable HDL: great er than 40 mg/dL Note: This HDL assay may give artificially low results in patients with liver disease. Blood Venous blood specimen / Unknown 08/24/2023 10:22 AM EDT 08/24/2023 10:22 AM EDT us Monica Iraheta MD LAB BLOOD ORDERABLES Final Re sult [facility] [address] [place] [phone] from Last 3 Months or Most Recently Relevant to Health Maintenance [place] [address] , [address] [place] [address] [place]
== END 2024-11-13 08:56 | disposition home or self-care (01) ==
LOC: HO.HGI 08:05
PROVIDERS: PCP Physician Assistant; Visit Provider Internal Medicine Gastroenterology
DX: Z23 Encounter for immunization (principal)

== ENCOUNTER → 2024-11-13 08:04 | Outpatient (BNVA) | payer OTHER, SELFPAY | PROVIDERS: PCP Physician Assistant; Visit Provider Internal Medicine Gastroenterology | DX: K50.019 Crohn's disease of small intestine with unspecified complications (principal); Z23 Encounter for immunization; K21.9 Gastro-esophageal reflux disease without esophagitis; D64.9 Anemia, unspecified | CPT/HCPCS: 90471; 90472; 90632; 90746; 99212 ==

== ENCOUNTER 2024-11-21 15:46 | Outpatient (REF) | payer OTHER, SELFPAY ==
[2024-11-21 16:42] LABS: Hematocrit 42.7 % (42.0-52.0); Hemoglobin 13.7 g/dl (14.0-18.0); Mean Corpuscular HGB Conc 32.1 g/dl (31.0-36.0); Mean Corpuscular Hemoglobin 25.3 pg (27.0-33.0); Mean Corpuscular Volume 78.9 fL (80.0-98.0); Mean Platelet Volume 12.3 fL (9.4-12.4); Platelet Count 229 X10*3/uL (160-400); Red Blood Count 5.41 X10*6/uL (4.60-5.80); Red Cell Distribution Width 15.4 % (11.0-16.0)
[2024-11-21 17:16] LABS: Alanine Aminotransferase 21 U/L (0-40); Albumin Level 4.2 g/dL (3.5-5.0); Alkaline Phosphatase 110 U/L (39-117); Anion Gap 10 (12-20); Aspartate Amino Transferase 20 U/L (5-37); Bilirubin Total 0.2 mg/dL (0.0-1.0); Blood Urea Nitrogen 13 mg/dL (9-16); Carbon Dioxide 27 mmol/L (22-29); Chloride 106 mmol/L (96-108); Estimated Glomerular Filt Rate > 60; Glucose Random 92 mg/dL (60-115); Sodium 139 mmol/L (135-145); Total Protein 7.2 g/dL (6.5-8.0)
[2024-11-21 17:49] LABS: Folate 6.7 ng/mL (> or = 4.0); Vitamin B12 266 pg/mL (200-900)
--- OUTSIDE RECORDS SUMMARY | 2024-11-21 17:53 | XMS_ITS | Clinical Summary ---
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 Blood Venous blood specimen / Unknown 08/24/2023 10:22 AM EDT 08/24/2023 10:22 AM EDT us Monica Iraheta MD LAB BLOOD ORDERABLES Final Re sult [facility] [address] [place] [phone] * HIV-1/2 Antigen and Antibodies, Fourth Generation, with Reflexes (08/24/2023 10:22 AM EDT) HIV AB/AG Nonreactive Nonreactive [facility] Comment:HIV-1 p24 Ag and/or HIV-1/HIV-2 Ab not detected.A test result that is nonreactive does not exclude thepossibility of exposure to or infection with HIV-1 and/orHIV-2. Nonreactive results in this assay for individualswith prior exposure to HIV-1 and/or HIV-2 may be due toantigen and antibody levels that are below the limit ofdetection of this assay.The [employer] HIV Ag/Ab Combo assay result andsupplemental assay results should be interpreted inconjunction with the patient's clinical presentation,history and other laboratory results. If the results areinconsistent with clinical evidence, additional testing issuggested to confirm the result. Blood Venous blood specimen / Unknown 08/24/2023 10:22 AM EDT 08/24/2023 10:22 AM EDT us Monica Iraheta MD LAB BLOOD ORDERABLES Final Re sult [facility] [address] [place] [phone] * (ABNORMAL) Lipid Panel, Standard (08/24/2023 10:22 AM EDT) Triglycerides 213(H) <150 mg/dL [facility] Comment:Desirable Triglyceri de: less than 150 mg/dLBorderline High Triglyceride 150-199 mg/dLHigh Triglyceride: 200-499 mg/dLVery High Triglyceride: greater than or equal to 5OO mg/dL Cholesterol 178 <200 mg/dL [facility] Comment:Desirable Cholestero l: less than 200 mg/dLBorderline High Cholesterol: 200-239 mg/dLHigh Cholesterol: greater than 239 mg/dL LDL Cholesterol Calculated 97 <100 mg/dL [facility] Comment:Desirable LDL: less than 100 mg/dLNear Optimal/Above Optimal LDL: 110- 129 mg/dLBorderline High LDL: 130-159 mg/dLHigh LDL: 160-189 mg/dLVery High LDL: greater than or equal to 190 mg/dL HDL Cholesterol 39(L) >40 mg/dL [facility] Comment:Desirable HDL: great er than 40 mg/dL Note: This HDL assay may give artificially low results in patients with liver disease. Blood Venous blood specimen / Unknown 08/24/2023 10:22 AM EDT 08/24/2023 10:22 AM EDT us Monica Iraheta MD LAB BLOOD ORDERABLES Final Re sult [facility] [address] [place] [phone] from Last 3 Months or Most Recently Relevant to Health Maintenance Insurance , [address] [place] [address] [place]
[2024-11-23 23:38] LABS: TS Negative Control Passed; TS Panel A 1; TS Panel B 0; TS Positive Control Passed; TSpotTB Negative (Negative)
== END 2024-11-21 15:47 | disposition home or self-care (01) ==
LOC: HO.LAB 15:46
PROVIDERS: PCP Physician Assistant; Visit Provider Internal Medicine Gastroenterology
DX: Z01.818 Encounter for other preprocedural examination (principal); K50.019 Crohn's disease of small intestine with unspecified complications
CPT/HCPCS: 36415; 80053; 80230; 82542; 82607; 82746; 85027; 86481

== ENCOUNTER 2024-12-06 09:30 | Outpatient (REF) | payer OTHER, SELFPAY ==
--- OUTSIDE RECORDS SUMMARY | 2024-12-06 09:51 | XMS_ITS | Clinical Summary ---
Author Organization [employer] Address [address] [facility] [address] [place] [address] Care Team Providers Care Business Excellence Manager Name Role Phone Unavailable Primary Care [...] 4 Active ergocalciferol (Vitamin D2) 1.25 MG (58712 UT) capsule Take 1 capsule (1.25 mg) [...] - 2023-2 5 season) 2024 11/04/2020, 10/07/2020 Tobacco Screening 08/09/2024 08/10/2023 SDOH Screening 11/29/2024 11/30/2023 Influenza Vaccine (Season Ended) [...] AM EDT) Hepatitis C Antibody Nonreactive Nonreactive [facility] Comment:Antibodies to HCV no t detected; does not exclude early acuteHCV infection. Blood Venous blood specimen / Unknown 08/24/2023 10:22 AM EDT 08/24/2023 10:22 AM EDT us Monica Iraheta MD LAB BLOOD ORDERABLES Final Re sult [facility] [address] [place] [phone] * HIV-1/2 Antigen and Antibodies, Fourth Generation, with Reflexes (08/24/2023 10:22 AM EDT) HIV AB/AG Nonreactive Nonreactive [facility] Comment:HIV-1 p24 Ag and/or HIV-1/HIV-2 Ab not detected.A test result that is nonreactive does not exclude thepossibility of exposure to or infection with HIV-1 and/orHIV-2. Nonreactive results in this assay for individualswith prior exposure to HIV-1 and/or HIV-2 may be due toantigen and antibody levels that are below the limit ofdetection of this assay.The [employer] HIV Ag/Ab Combo assay result andsupplemental assay results should be interpreted inconjunction with the patient's clinical presentation,history and other laboratory results. If the results areinconsistent with clinical evidence, additional testing issuggested to confirm the result. Blood Venous blood specimen / Unknown 08/24/2023 10:22 AM EDT 08/24/2023 10:22 AM EDT us Monica Iraheta MD LAB BLOOD ORDERABLES Final Re sult [facility] [address] [place] [phone] * (ABNORMAL) Lipid Panel, Standard (08/24/2023 10:22 AM EDT) Triglycerides 213(H) <150 mg/dL [facility] Comment:Desirable Triglyceri de: less than 150 mg/dLBorderline High Triglyceride 150-199 mg/dLHigh Triglyceride: 200-499 mg/dLVery High Triglyceride: greater than or equal to 5OO mg/dL Cholesterol 178 <200 mg/dL [facility] Comment:Desirable Cholestero l: less than 200 mg/dLBorderline High Cholesterol: 200-239 mg/dLHigh Cholesterol: greater than 239 mg/dL LDL Cholesterol Calculated 97 <100 mg/dL [facility] Comment:Desirable LDL: less than 100 mg/dLNear Optimal/Above Optimal LDL: 110- 129 mg/dLBorderline High LDL: 130-159 mg/dLHigh LDL: 160-189 mg/dLVery High LDL: greater than or equal to 190 mg/dL HDL Cholesterol 39(L) >40 mg/dL [facility] Comment:Desirable HDL: great er than 40 mg/dL Note: This HDL assay may give artificially low results in patients with liver disease. Blood Venous blood specimen / Unknown 08/24/2023 10:22 AM EDT 08/24/2023 10:22 AM EDT us Monica Iraheta MD LAB BLOOD ORDERABLES Final Re sult [facility] [address] [place] [phone] from Last 3 Months or Most Recently Relevant to Health Maintenance Insurance , [address] [place] [address] [place]
== END 2024-12-06 09:31 | disposition home or self-care (01) ==
LOC: HO.MRI 09:30
PROVIDERS: PCP Physician Assistant; Visit Provider Internal Medicine Gastroenterology
DX: Z13.89 Encounter for screening for other disorder (principal)

== ENCOUNTER 2024-12-17 13:18 | Outpatient (AMB) | payer OTHER, SELFPAY ==
--- NOTE | 2024-12-17 13:26 | AM.OFFVISNUR ---
Intake Visit Reasons: Hep B #2 Allergies aspirin (Aspirin) Allergy (Intermediate, Verified 11/13/24 08:07) TACHYCARDIA, palpitations, tachycardia latex (LATEX) Allergy (Intermediate, Verified 11/13/24 08:07) RASH gluten Allergy (Verified 11/13/24 08:07) Unknown diphenhydramine (From BENADRYL) Adverse Reaction (Intermediate, Verified 11/13/24 08:07) TACHYCARDIA AND CHNAGES IN BEHAVOR Immunizations Engerix-B (PF) 20 mcg/mL intramuscular suspension Performing Provider: Vashti Augustin MD Performing Location: [facility] Administered by: Lyndsay Maxwell RN on 12/17/24 13:26 Dose Route Admin Location Dispensed Lot Number Expiration Date [facility] First Line Production Supervisor 1 mL IM Right Deltoid 1 mL [id number] 01/01/27 99435-360-72 [employer] Total Dispensed Waste 1 mL 0 % VIS Given Date VIS Provided VIS Publication Date 12/17/24 Single Vaccine 22 Eligibility Eligibility Date Funding Source Not [facility] Eligible 12/17/24 Private Assessment & Plan Assessment & Plan Orders: Orders Hepatitis B Adult Immunization Today Z23 - Encounter for immunization Coding Level of Care Code Established Pt Est Pt Level 1 (89932) Patient Type Established Medical Decision Making Straight Forward
--- OUTSIDE RECORDS SUMMARY | 2024-12-17 14:24 | XMS_ITS | Clinical Summary ---
Author Organization [employer] Address [address] [facility] 7[address] [place] [address] Care Team Providers Care Dinkey Engine Firer Name Role Phone Unavailable Primary Care Provider [...] 4 Active ergocalciferol (Vitamin D2) 1.25 MG (34764 UT) capsule Take 1 capsule (1.25 mg) [...] Use Screening 1994 Family Planning (PISQ) 1997 HPV Vaccines (1 - Male 3-dos e series) 1997 Hepatitis B Vaccines (1 of 3 - 19+ 3-dose series) 2001 Depression Screening 09/14/2023 09/13/2022, 09/13/2022 COVID-19 Vaccine ( - 2023-2 5 season) 2024 11/04/2020, 10/07/2020 Tobacco Screening 08/09/2024 08/10/2023 SDOH Screening 11/29/2024 11/30/2023 Influenza Vaccine (#1) 2025 Lipid Panel 08/23/2028 08/24/2023, 08/28/2021 Zoster [...] AM EDT) Hepatitis C Antibody Nonreactive Nonreactive [facility] Comment:Antibodies to HCV no t detected; does not exclude early acuteHCV infection. Blood Venous blood specimen / Unknown 08/24/2023 10:22 AM EDT 08/24/2023 10:22 AM EDT us Monica Iraheta MD LAB BLOOD ORDERABLES Final Re sult [facility] [address] [place] [phone] * HIV-1/2 Antigen and Antibodies, Fourth Generation, with Reflexes (08/24/2023 10:22 AM EDT) HIV AB/AG Nonreactive Nonreactive [facility] Comment:HIV-1 p24 Ag and/or HIV-1/HIV-2 Ab not detected.A test result that is nonreactive does not exclude thepossibility of exposure to or infection with HIV-1 and/orHIV-2. Nonreactive results in this assay for individualswith prior exposure to HIV-1 and/or HIV-2 may be due toantigen and antibody levels that are below the limit ofdetection of this assay.The [employer] HIV Ag/Ab Combo assay result andsupplemental assay results should be interpreted inconjunction with the patient's clinical presentation,history and other laboratory results. If the results areinconsistent with clinical evidence, additional testing issuggested to confirm the result. Blood Venous blood specimen / Unknown 08/24/2023 10:22 AM EDT 08/24/2023 10:22 AM EDT us Monica Iraheta MD LAB BLOOD ORDERABLES Final Re sult [facility] [address] [place] [phone] * (ABNORMAL) Lipid Panel, Standard (08/24/2023 10:22 AM EDT) Triglycerides 213(H) <150 mg/dL [facility] Comment:Desirable Triglyceri de: less than 150 mg/dLBorderline High Triglyceride 150-199 mg/dLHigh Triglyceride: 200-499 mg/dLVery High Triglyceride: greater than or equal to 5OO mg/dL Cholesterol 178 <200 mg/dL [facility] Comment:Desirable Cholestero l: less than 200 mg/dLBorderline High Cholesterol: 200-239 mg/dLHigh Cholesterol: greater than 239 mg/dL LDL Cholesterol Calculated 97 <100 mg/dL [facility] Comment:Desirable LDL: less than 100 mg/dLNear Optimal/Above Optimal LDL: 110- 129 mg/dLBorderline High LDL: 130-159 mg/dLHigh LDL: 160-189 mg/dLVery High LDL: greater than or equal to 190 mg/dL HDL Cholesterol 39(L) >40 mg/dL [facility] Comment:Desirable HDL: great er than 40 mg/dL Note: This HDL assay may give artificially low results in patients with liver disease. Blood Venous blood specimen / Unknown 08/24/2023 10:22 AM EDT 08/24/2023 10:22 AM EDT us Monica Iraheta MD LAB BLOOD ORDERABLES Final Re sult [facility] [address] [place] [phone] from Last 3 Months or Most Recently Relevant to Health Maintenance Insurance , [facility] [address] [place] [address] [place]
== END 2024-12-17 13:28 | disposition home or self-care (01) ==
LOC: HO.HGI 13:18
PROVIDERS: PCP Physician Assistant; Visit Provider Internal Medicine Gastroenterology
DX: Z23 Encounter for immunization (principal)

== ENCOUNTER → 2024-12-17 13:18 | Outpatient (BNVA) | payer OTHER, SELFPAY | PROVIDERS: PCP Physician Assistant; Visit Provider Internal Medicine Gastroenterology | DX: Z23 Encounter for immunization (principal) | CPT/HCPCS: 90471; 90746; 99211 ==

== ENCOUNTER 2025-01-31 08:35 | Outpatient (AMB) | payer OTHER, SELFPAY ==
--- NOTE | 2025-01-31 08:39 | A.OFFVIS_ITS ---
Vital Signs 01/31/25 08:41 Height 5 ft 6 in Weight 170 lb BMI 27.4 BP 123/56 L Blood Pressure Location Lt brachial Position Sitting Pulse 77 Pulse Oximetry (%) 98 Oxygen Delivery Method Room Air Intake Visit Reasons: 2 mo f/u Intake Note: Patient follow up for Anemia, lab and Abdominal MRI results. Patient denies any GI issues. 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 Accompanied by: Self / Same As Patient Allergies aspirin (Aspirin) Allergy (Intermediate, Verified 01/31/25 08:38) TACHYCARDIA, palpitations, tachycardia latex (LATEX) Allergy (Intermediate, Verified 01/31/25 08:38) RASH gluten Allergy (Verified 01/31/25 08:38) Unknown diphenhydramine (From BENADRYL) Adverse Reaction (Intermediate, Verified 01/31/25 08:38) TACHYCARDIA AND CHNAGES IN BEHAVOR Medication List - Last Reconciled 01/31/25 by Vashti Augustin MD albuterol sulfate 90 mcg/actuation 2 puffs inhalation Q4-6H PRN cholecalciferol (vitamin D3) 250 mcg PO 2XW 90 days cyanocobalamin (vitamin B-12) (Vitamin B-12) 1,000 mcg PO DAILY dexlansoprazole (Dexilant) 30 mg PO QAM 90 days fluticasone furoate-vilanterol 200-25 mcg/dose (Breo Ellipta) 1 inh inhalation DAILY 30 days folic acid 1 mg PO DAILY infliximab-dyyb (Inflectra) mg IV Q6W loratadine (Allergy Relief (loratadine)) 10 mg PO DAILY 90 days HPI HPI 2 mo f/u: Details: GI clinic visit for this 44 YM for follow up of celiac, MARK and fibrostenotic Crohn's disease status post surgery x 3 (stricturoplasty and small bowel resection). Pt has been followed at [facility] for Remicade injections every 6 weeks. Has a new insurance and would like to switch his care to [facility]. Has 1 more appt for Remicade at [facility] - on 11/28/24 and would like to schedule future infusions at [facility]. Pt is also he is due for a colonoscopy for CD surveillance. IBD SUMMARY YEAR OF DIAGNOSIS: 1995 (symptoms since age 17 yrs) DISEASE EXTENT: Small bowel and colon LAST COLONOSCOPY: 2021 NEXT COLON DUE: Now EXTRAINTESTINAL MANIFESTATIONS: Denies mouth ulcers, skin rash. Complains of blurred vision and joint pains. GI SURGERY: Two GI surgeries in [place] and one in [facility] - last surgery 8 yrs ago PAST TREATMENTS: Steroids, Asacol, Entyvio CURRENT THERAPY: Remicade every 6 weeks, Dexilent for GERD He is supposed to take a pill and has not been doing so VACCINATIONS: Flu shot: None Hep A/B serology /vaccination: Unsure if he is vaccinated for Hep A and B TB screen: 11/21/24 negative TODAY'S VISIT: Patient here for follow up for Anemia, lab and Abdominal MRI results. MRI results reviewed with the patient Intermittent episodes of abdominal pain and diarrhea Abd pain and diarrhea can last 1-3 days Has 1-2 BMs a day Can be pain free for 2 weeks Last episode of rectal bleeding was a month ago and lasted 3-4 days. Pt states not compliant to GFD due to busy work schedule. Takes Dexlansoprazole daily. PAST VISITS: Patient follow up for Celiac disease, and Hx of Crohns - Chronic absorption Issue and lab results. Abdominal MRI was cancel due insurance issues. Complains of intermittent abdominal pain. Rectal bleeding for the past 7 - 10 days Blood is BR and separate from the stools Has a BM daily - usually normal - sometimes hard or soft. Complains of heartburn 4 days a week not always with intake of meals Notes nocturnal regurgitation of acidic fluid Patient denies symptoms of dysphagia, nausea, vomiting, change in appetite or weight. Denies recent change in bowel habits, constipation, diarrhea, black stools or rectal bleeding. Has a normal BM daily Denies gas or bloating. Pt reports 1 to 2 times a month he has severe abdominal discomfort that is accompanied by nausea vomiting constipation and inability to pass gas - concerning for bowel obstruction. Patient normally stays home makes himself NPO and his symptoms subside. Patient notes that he has 2 abdominal hernia that caused discomfort when he coughs or bears down - these are reducible and appear like golf balls protruding out of his abdomen. Takes Remicade (Inflectra 10 mg/kg )every 6 weeks at [facility] (missed his last dose) Scheduled for an EGD and colon at [facility] x 2 - went to [facility] and unable to find the office and left Does not want to go to [facility] anymore. Denies being on a Gluten free diet - finds it hard to follow - tries his best to get Gluten free food Patient denies major cardiac or pulmonary problems, loud snoring or sleep apnea Denies problems with anesthesia in the past. Denies being on chronic anticoagulation. Patient denies known family history of IBD, colon polyps, colon cancer or other GI malignancies. 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 Pepe at [facility] which showed an end-to-side ileo-colic anastomosis - felt a bit tight on intubation without iza stricture. Multiple 1-2 mm pseudo polyps in the descending colon Small internal and external hemorrhoids. Pt was advised further evaluation with MR enterography. LABS IN [facility] : Reviewed IMAGING STUDIES: 08/[address] SCAN SHOWED: GASTROINTESTINAL TRACT: The patient is again noted to have undergone small bowel resection with chain sutures in the epigastric region. There is a dilated loop of small bowel just proximal to the surgical staple anastomotic line, in the epigastrium, measuring up to 4.1 cm in diameter. At the pelvic brim, there is an additional dilated loop of small bowel adjacent to surgical jose, measuring up to 3.6 cm, with equalization of internal contents. No significant perienteric infiltration is evident. There is no free air., adjacent to the surgical anastomotic line, there is a loop of small bowel which although not dilated appears fecalized, and is more distended than on 10/14/2021 The distal ileum is collapsed, but demonstrates submucosal lipomatous infiltration, consistent with inflammatory bowel disease, particularly Crohn's disease. The rectum is distended with fecal material. ABDOMINAL WALL: A fat-containing anterior abdominal wall hernias are again evident, unchanged, 10/14/[address] SCAN SHOWED: The liver demonstrates normal size, contour and attenuation. Approximately 1.5 cm gallstone noted within otherwise unremarkable appearing gallbladder. Similar postsurgical changes of the small bowel. Similar prominence of the single loop of small bowel within the left abdomen. There is no evidence of an obstructive process. There is a mild to moderate colonic stool burden. Fat-containing ventral abdominal hernias are again noted and appear relatively similar. PAST GI HISTORY BY REVIEW OF MEDICAL RECORDS: 10/15/21 PT WAS SEEN DURING HOSPITALIZATION AT [facility]: Chief Complaint: Rectal bleeding, abdominal pain 41 YM with celiac disease and fibrostenotic Crohn's disease status post surgery x 3 (stricturoplasty and small bowel resection) seen at [facility] ED on 10/14/21 with 3 days of rectal bleeding and abdominal pain.? The patient reported his been doing well until the last 3-4 days when he started to feel dark blood coming out with stool with bowel movement mainly.? No episodes of bleeding bright red blood.? Denies any fever, chills but reports having lower abdominal pain which he denies usually having.? Pain was pressure-like and not affected by eating. Pt noted dizziness while he was taking a shower. Patient reports being diagnosed with Crohn's disease 16 years ago. He has had 3 surgeries (1st two surgeries were performed at [facility] - stricturoplasty and he had 6 inches of small bowel removed during the last surgery at [facility] 4-5 yrs ago). Pt has been on Remicade every 6 weeks - last infusion on October 03.? He follows with Dr Pleitez, [facility] but decided to come today for worsening symptoms.? Blood work showed mild iron deficiency anemia but overall close to his baseline. Pt was admitted for further evaluation and treatment and started on IV prednisone. Pt reports getting an iron infusion a month ago - hx of chronic MARK. 3?2021 patient had a colonoscopy performed by Dr. Pepe at [facility] which showed an end-to-side ED okay colic anastomosis - felt a bit tight on intubation without iza stricture. Multiple 1-2 mm pseudo polyps in the descending colon Small internal and external hemorrhoids. Pt was advised further evaluation with MR enterography. Patient takes Dexilant for heartburn and denies dysphagia, nausea, vomiting, change in appetite or weight. Denies recent change in bowel habits or diarrhea.. Denies being on chronic anticoagulation. Patient denies smoking or EtOH abuse. Patient works in [employer] and has 2 children (16 & 17 yrs old) Patient denies known family history of IBD colon polyps, colon cancer or other GI malignancies. PAST EGD/COLONOSCOPY: 09/2018 EGD AND COLONOSCOPY WERE PERFORMED BY DR. MACKEY: Esophagus: GE junction at 42 cm. No esophagitis or Moody?s. Stomach: Mild gastric erythema. Biopsies were obtained. Grade 2 flap valve on retroflexed examination of the cardia. Duodenum: Abormal bulb and descending duodenum with mucosal flattening and cobblestoning, bx taken Colonoscopy Findings: Ileocolonic anastomosis: small bowel could not be entered due to edema, inflammation, bx taken from the area Ascending Colon ? normal Transverse Colon - normal bx from above 2 sites in seperate jar Descending Colon ? 1-2 pseudopolyps seen Sigmoid Colon ? normal Rectum ? normal Anorectum - retroflexion with grade I moderate sized hemorrhoids with some contact bleeding, minor BIOPSIES SHOWED: A. Duodenal bx's B. Stomach bx's C. Ileocolonic anastomosis bx's D. Right sided and transverse colon bx's E. Left sided colon bx's F. Rectal bx's DIAGNOSIS A. Duodenum, biopsy: Duodenal mucosa with focal complete effacement of villous architecture and increased intraepithelial lymphocytes. See comment. B. Stomach, biopsy: Moderate chronic inactive gastritis; no Helicobacter organisms seen. C. Ileocolonic anastomosis, biopsy: Colonic mucosa with chronic, moderately active, inflammation. D. Colon, right and transverse, biopsy: Chronic inactive colitis. E. Colon, left, biopsy: Chronic inactive colitis. F. Rectum, biopsy: Colonic mucosa within normal limits. COMMENT: The patient's history of Crohn's is noted. A few small loose granulomas are seen in part D. No dysplasia is seen in any of the biopsies. The findings in the duodenum raise the possibility of concurrent celiac disease; however, upper tract involvement by Crohn's can give the same histologic picture [facility] Medical History (Updated 08/30/24 @ 07:51 by Ishmael Harley PA-C) COVID-19 virus infection Crohn's disease Asthma Abdominal pain despite therapy for Crohn's disease Surgical History History of laparoscopic cholecystectomy (09/01/22) H/O abdominal surgery Family History Father Hypertension Mother Diabetes Maternal Grandfather Renal cancer Brother In good health Brother In good health Sister In good health Son In good health Son In good health Social History Household Members: Family Housing: House Do you presently have visiting nurse or other home services: No Alcohol intake: never Patient Tobacco Use Status: Never used Tobacco e-Cigarette/Vaping Use: Never Used Second Hand Smoke Exposure: No service: No Current occupational status: employed Cognitive needs: No Hearing needs: No Vision needs: No Review of Systems Const All systems reviewed & are unremarkable except as noted in HPI and below Physical Exam Vital Signs: Last Vital Signs Pulse 77 01/31/25 08:41 BP 123/56 L 01/31/25 08:41 Pulse Ox 98 01/31/25 08:41 Oxygen Delivery Method Room Air 01/31/25 08:41 BMI result Body Mass Index 27.4 Const General: no acute distress Nutritional Appearance: overweight Orientation/consciousness: patient oriented x3 Limitations: no limitations HEENT Head: Yes normal to inspection Ears: hearing grossly normal bilaterally Mouth: Normal oral and palatal mucosa present Eyes Sclerae: sclerae normal Pupils: Equal, round and reactive pupils present Neck Neck: Yes normal visual inspection Chest Chest palpation & inspection: normal inspection of the chest Resp Effort & Inspection: normal respiratory effort Auscultation: clear to auscultation bilaterally Cardio Palpation: normal PMI Rate: regular rate Rhythm: regular rhythm Heart sounds: S1 normal heart sound present, S2 normal heart sound present and no murmurs GI Inspection: Yes scar (midline scar of past surgeries) and Yes visible herniation Palpation (GI): Soft to palpation, nontender and No hepatosplenomegaly present Auscultation: normal bowel sounds Rectal Exam - Male: Yes deferred Skin General skin exam: no rashes or lesions noted Neuro General: patient oriented x3, gait normal and moves all extremities Cranial nerves: Yes Equal, round and reactive pupils present Psych Appearance: grossly normal Mental Status: mental status grossly normal Assessment & Plan Assessment & Plan (1) Celiac disease: Code(s): K90.0 - Celiac disease Category: Medical (2) Crohn disease: Code(s): K50.90 - Crohn's disease, unspecified, without complications Category: Medical Qualifiers: Digestive disease complication type: unspecified complication Gastrointestinal tract location: small intestine Qualified Code(s): K50.019 - Crohn's disease of small intestine with unspecified complications (3) GERD (gastroesophageal reflux disease): Code(s): K21.9 - Gastro-esophageal reflux disease without esophagitis Category: Medical Plan 44 YM with celiac, MARK and fibrostenotic Crohn's disease status post surgery x 3 (stricturoplasty and small bowel resection). He has been going to [facility] for Remicade injections every 6 weeks and would like to switch his care to [facility]. Patient has a history of pseudo obstructive symptoms including nausea vomiting and inability to pass gas and constipation approximately 1 to 2 times a month. Symptoms could be due to partial small-bowel obstruction versus adhesions from prior abdominal surgery. Pt has a history of erratic medication adherence due to insurance issues. IBD SUMMARY YEAR OF DIAGNOSIS: 1997 (symptoms since age 17 yrs) DISEASE EXTENT: Small bowel and colon LAST COLONOSCOPY FINDINGS: 2021 NEXT COLON DUE: Now EXTRAINTESTINAL MANIFESTATIONS: Denies mouth ulcers, skin rash. Complains of blurred vision and joint pains. GI SURGERY: Two GI surgeries in [place] and one in [facility] - last surgery 8 yrs ago 2013 multiple stricturoplasties at [facility] 2018 small-bowel resection for chronic stricture at [facility]. PAST TREATMENTS: Steroids, Asacol, Humira 2016 (discontinued since he did not like injections), Entyvio [id number] (discontinued due to lack of response), CURRENT THERAPY: Remicade every 6 weeks, Dexilent for GERD He is supposed to take a pill (Methotrexate 15 mg weekly) and has not been compliant PLAN: 1. Schedule an Abd MRI scan 2. Advised to keep appt for next Remicade infusion at [facility] on 11/28/24 and then switch to [facility] short stay for future Remicade infusion 3. Hep A vaccination 4. Ref to Nutrition for education on gluten free diet 5. Continue dexlansoprazole 30 mg daily for GERD ADDENDUM: Labs showed normal LFTs and infliximab antibodies were not detected. 01/14/25 MRI SHOWED: 1. Few loops of small bowel with wall thickening without evidence of any enhancement in the left upper quadrant - most likely represents underdistention versus sequela of CD 2. No abuse acute inflammatory process involving the small and large bowel. 3. Few loops of borderline dilated small bowel without wall thickening or enhancement - no small or large bowel obstruction noted. 4. Feathering appearance of loops of small bowel localized to the left upper quadrant - possibly due to celiac disease versus normal variant. 5. Terminal ileum appears intact without inflammation 11/21/24 serum infliximab level was undetectable at less than 1 microgram/mL, with undetectable ATI (< 3.1) 1 week before infliximab infusion. Above results were reviewed with the patient. Advised to change infliximab infusion to every 4 weeks and add azathioprine 50 mg daily Next infusion scheduled on 02/15 and will move to week of Feb pending insurance approval. Repeat labs prior to infliximab infusion in Mar, 2025 FU in 3 month Medications: New azathioprine 50 mg PO DAILY 30 tabs 3RF 30 days K51.50 - Left sided colitis without complications Changed From folic acid 1 mg PO DAILY To folic acid 1 mg PO DAILY 90 tabs 1RF 90 days Refilled cholecalciferol (vitamin D3) 250 mcg PO 2XW 26 caps 1RF 90 days E55.9 - Vitamin D deficiency, unspecified dexlansoprazole (Dexilant) 30 mg PO QAM 90 caps 1RF 90 days K21.9 - Gastro- esophageal reflux disease without esophagitis cyanocobalamin (vitamin B-12) (Vitamin B-12) 1,000 mcg PO DAILY 90 tabs 3RF Coding Level of Care Code Est Pt Level 4 (37991) Complex EM visit Add On G2211 Diagnoses Celiac disease K90.0 Crohn's disease of small intestine with complication K50.019 Digestive disease complication type: unspecified complication Gastrointestinal tract location: small intestine GERD (gastroesophageal reflux disease) K21.9 Time Spent (min) 22
[2025-01-31 08:41] VITALS: BP 123/56; PULSE 77; O2SAT 98; BMI 27.4
--- OUTSIDE RECORDS SUMMARY | 2025-01-31 09:13 | XMS_ITS | Clinical Summary ---
Author Organization [employer] Address [address] [place] [address] Care Team Providers Care Inspector Subassembly Name Role Phone Unavailable Primary Care Provider [...] 4 Active ergocalciferol (Vitamin D2) 1.25 MG (60842 UT) capsule Take 1 capsule (1.25 mg) [...] AM EDT) Hepatitis C Antibody Nonreactive Nonreactive [facility] Comment:Antibodies to HCV no t detected; does not exclude early acuteHCV infection. Blood Venous blood specimen / Unknown 08/24/2023 10:22 AM EDT 08/24/2023 10:22 AM EDT us Monica Iraheta MD LAB BLOOD ORDERABLES Final Re sult [facility] [address] [place] [phone] * HIV-1/2 Antigen and Antibodies, Fourth Generation, with Reflexes (08/24/2023 10:22 AM EDT) HIV AB/AG Nonreactive Nonreactive [facility] Comment:HIV-1 p24 Ag and/or HIV-1/HIV-2 Ab not detected.A test result that is nonreactive does not exclude thepossibility of exposure to or infection with HIV-1 and/orHIV-2. Nonreactive results in this assay for individualswith prior exposure to HIV-1 and/or HIV-2 may be due toantigen and antibody levels that are below the limit ofdetection of this assay.The [employer] HIV Ag/Ab Combo assay result andsupplemental assay results should be interpreted inconjunction with the patient's clinical presentation,history and other laboratory results. If the results areinconsistent with clinical evidence, additional testing issuggested to confirm the result. Blood Venous blood specimen / Unknown 08/24/2023 10:22 AM EDT 08/24/2023 10:22 AM EDT us Monica Iraheta MD LAB BLOOD ORDERABLES Final Re sult [facility] [address] [place] [phone] * (ABNORMAL) Lipid Panel, Standard (08/24/2023 10:22 AM EDT) Triglycerides 213(H) <150 mg/dL [facility] Comment:Desirable Triglyceri de: less than 150 mg/dLBorderline High Triglyceride 150-199 mg/dLHigh Triglyceride: 200-499 mg/dLVery High Triglyceride: greater than or equal to 5OO mg/dL Cholesterol 178 <200 mg/dL [facility] Comment:Desirable Cholestero l: less than 200 mg/dLBorderline High Cholesterol: 200-239 mg/dLHigh Cholesterol: greater than 239 mg/dL LDL Cholesterol Calculated 97 <100 mg/dL [facility] Comment:Desirable LDL: less than 100 mg/dLNear Optimal/Above Optimal LDL: 110- 129 mg/dLBorderline High LDL: 130-159 mg/dLHigh LDL: 160-189 mg/dLVery High LDL: greater than or equal to 190 mg/dL HDL Cholesterol 39(L) >40 mg/dL [facility] Comment:Desirable HDL: great er than 40 mg/dL Note: This HDL assay may give artificially low results in patients with liver disease. Blood Venous blood specimen / Unknown 08/24/2023 10:22 AM EDT 08/24/2023 10:22 AM EDT us Monica Iraheta MD LAB BLOOD ORDERABLES Final Re sult [facility] [address] [place] [phone] from Last 3 Months or Most Recently Relevant to Health Maintenance Insurance , [facility] [address] [place] [address] [place] AD[place]
== END 2025-01-31 09:14 | disposition home or self-care (01) ==
LOC: HO.HGI 08:35
PROVIDERS: PCP Physician Assistant; Visit Provider Internal Medicine Gastroenterology
DX: K90.0 Celiac disease (principal); K50.019 Crohn's disease of small intestine with unspecified complications; K21.9 Gastro-esophageal reflux disease without esophagitis
CPT/HCPCS: 99214

== ENCOUNTER → 2025-01-31 08:35 | Outpatient (BNVA) | payer OTHER, SELFPAY | PROVIDERS: PCP Physician Assistant; Visit Provider Internal Medicine Gastroenterology | DX: K21.9 Gastro-esophageal reflux disease without esophagitis (principal); K50.019 Crohn's disease of small intestine with unspecified complications; K90.0 Celiac disease; E55.9 Vitamin D deficiency, unspecified | CPT/HCPCS: 99212 ==

== ENCOUNTER 2025-04-04 14:56 | Emergency (ER) | payer OTHER, SELFPAY ==
--- NOTE | ~2025-04-04 | CT_ITS ---
CLINICAL HISTORY: LLQ abdomianl pain CT abdomen and pelvis with contrast Comparison: CT/CA - CT ABDOMEN PELVIS WITH IV CONTRAST - 08/31/2022 05:13 PM EDT Findings: The lung bases are clear. Unremarkable solid organs. There are no abnormal findings in the gallbladder fossa. No urolithiasis. No bowel obstruction, pneumoperitoneum, or pneumatosis. There is mildly edematous fat extending into a complex ventral abdominal wall umbilical hernia. Pelvic contents unremarkable. Normal appendix. No acute fracture. IMPRESSION: No acute findings. This document has been electronically signed by: Ismael Rivero MD on 04/04/2025 21:40:18
[2025-04-04 15:28] VITALS: BP 130/71; PULSE 80; RESP 16; TEMP 36.4; O2SAT 97; BMI 28.2
--- NOTE | 2025-04-04 15:40 | ED.GENADULT ---
HPI - General Adult General Chief complaint: Abdominal Pain Stated complaint: abd pain Time Seen by Provider: 04/04/25 20:06 Source: patient Limitations: no limitations History of Present Illness ED Provider: Cristal Crowley PA-C HPI narrative: 44-year-old male with a history of Crohn's disease on Remicade, celiac disease, asthma, GERD , kidney stones who presents with abdominal pain for several days. Pain across entire lower abdomen, left greater than right. Unable to describe the nature of his discomfort. Associated nausea, denies vomiting, bloody diarrhea, constipation or fever. Denies dysuria, hematuria. Related Data Home Medications ?Medication ?Instructions ?Recorded ?Confirmed infliximab-dyyb 100 mg intravenous mg IV Q6W 08/29/24 01/31/25 solution (Inflectra) Previous Rx's ?Medication ?Instructions ?Recorded albuterol sulfate 90 mcg/actuation 2 puff inhalation Q4-6H PRN 08/29/24 aerosol inhaler shortness of breath or wheezing #1 inhaler fluticasone furoate 200 1 inh inhalation DAILY 30 days #1 08/29/24 mcg-vilanterol 25 mcg/dose inhaler inhalation powder (Breo Ellipta) loratadine 10 mg tablet (Allergy 10 mg PO DAILY 90 days #90 tabs 08/29/24 Relief (loratadine)) azathioprine 50 mg tablet 50 mg PO DAILY 30 days #30 tabs 01/31/25 cholecalciferol (vitamin D3) 250 250 mcg PO 2XW 90 days #26 caps 01/31/25 mcg (10,000 unit) capsule cyanocobalamin (vitamin B-12) 1,000 mcg PO DAILY #90 tabs 01/31/25 1,000 mcg tablet (Vitamin B-12) dexlansoprazole 30 mg 30 mg PO QAM 90 days #90 caps 01/31/25 capsule,biphase delayed release (Dexilant) folic acid 1 mg tablet 1 mg PO DAILY 90 days #90 tabs 01/31/25 Allergies Allergy/AdvReac Type Severity Reaction Status Date / Time aspirin (Aspirin) Allergy Intermediate TACHYCARDIA, Verified 04/04/25 15:30 palpitations, tachycardia latex (LATEX) Allergy Intermediate RASH Verified 04/04/25 15:30 gluten Allergy Unknown Verified 04/04/25 15:30 diphenhydramine (From AdvReac Intermediate TACHYCARDIA Verified 04/04/25 15:30 BENADRYL) AND CHNAGES IN BEHAVOR Review of Systems Review of Systems: Yes all other systems are reviewed and are negative Constitutional: Constitutional: Denies fatigue and Denies fever(s) Cardiovascular: Cardiovascular: Denies chest pain and Denies dyspnea Respiratory: Respiratory: Denies dyspnea Gastrointestinal: Gastrointestinal: Reports abdominal pain, Denies hematochezia, Denies constipation, Denies diarrhea, Reports nausea and Denies vomiting Genitourinary: Genitourinary: Denies hematuria, Denies dysuria and Denies flank pain Endocrine: Endocrine: Denies fatigue [facility] Past Medical History Attestation statement: The following information was validated with the patient. Medical History (Updated 04/05/25 @ 00:00 by Karthikeyan oV) COVID-19 virus infection Crohn's disease Asthma Abdominal pain despite therapy for Crohn's disease Surgical History History of laparoscopic cholecystectomy (09/01/22) H/O abdominal surgery Family History Family History Father Hypertension Mother Diabetes Maternal Grandfather Renal cancer Brother In good health Brother In good health Sister In good health Son In good health Son In good health Social History Social History Household Members: Family Housing: House Do you presently have visiting nurse or other home services: No Alcohol intake: never Patient Tobacco Use Status: Never used Tobacco e-Cigarette/Vaping Use: Never Used Second Hand Smoke Exposure: No service: No Current occupational status: employed Cognitive needs: No Hearing needs: No Vision needs: No Physical Exam ED Vital Signs: Vital Signs - 24 hr 04/04/25 15:28 04/04/25 22:35 04/04/25 23:16 Temperature 97.5 F 98 F 98 F Pulse Rate 80 76 76 Respiratory Rate 16 18 18 Blood Pressure 130/71 130/73 130/73 Pulse Oximetry 97 99 99 Oxygen Delivery Method Room Air Room Air Room Air BMI result Body Mass Index 28.2 Const Other: Alert well-appearing Orientation/consciousness: patient oriented x3 Resp Effort & Inspection: normal respiratory effort Cardio Other: Normal peripheral perfusion GI Other: Patient grimacing against palpation of the abdomen prior to me palpating the abdomen. Appearing to be tender across entire lower abdomen without objective guarding Skin Other: Warm dry no rash Neuro General: patient oriented x3, gait normal, no focal motor deficits and CN's II-XI intact bilaterally Psych Other: Cooperative Course Course Course Narrative: RME: 44 year male history of Crohn's and kidney stones presents to ED for left lower quadrant abdominal pain radiating to the back. Patient has had surgery in the past for Crohn's and also kidney stones. Labs UA ordered Medications Administered Discontinued Medications Generic Name Dose Route Start Last Admin Trade Name Toño PRN Reason Stop Dose Admin Hydromorphone HCl 1 mg 04/04/25 20:43 04/04/25 20:52 Hydromorphone Hcl 1 Mg/Ml Syringe IVPUSH 04/04/25 20:44 1 mg ONCE ONE Administration Protocol Sodium Chloride 1,000 mls @ 999 mls/hr 04/04/25 20:15 04/04/25 23:16 Ns IV 04/04/25 21:15 Infused .Q1H1M SHANE Infusion Iohexol 100 ml 04/04/25 21:04 04/04/25 21:05 Iohexol 350 Mg/Ml 100 Ml Infus..Btl IV 04/04/25 21:05 85 ml ONCE ONE Administration Ondansetron HCl 4 mg 04/04/25 15:33 04/04/25 15:35 Ondansetron Odt 4 Mg Tab.Rapdis TRANSLINGU 04/04/25 15:34 4 mg ONCE ONE Administration Ondansetron HCl 4 mg 04/04/25 20:43 04/04/25 20:54 Ondansetron Hcl 4 Mg/2 Ml Vial IVPUSH 04/04/25 20:44 4 mg ONCE ONE Administration Medical Decision Making Medical Decision Making MDM Narrative: 44-year-old male with a history of Crohn's disease on Remicade, celiac disease, asthma, GERD , kidney stones who presents with abdominal pain for several days. Pain across entire lower abdomen, left greater than right. Unable to describe the nature of his discomfort. Associated nausea, denies vomiting, bloody diarrhea, constipation or fever. Denies dysuria, hematuria. Problem: Crohn's disease, celiac disease, kidney stones History: Per patient I have considered the following differential diagnoses: Crohn's flare, diverticulitis, appendicitis, UTI, renal colic Plan: Patient is here with somewhat nonspecific abdominal pain, he is guarding against my exam performed palpating the abdomen, he seems to have discomfort across entire lower abdomen without a region of focality, objectively there was no guarding. Given his history of Crohn's, I will obtain a a CT scan. Screening labs were already obtained from triage, they did not order inflammatory markers we will add ESR and CRP. Giving analgesia Zofran and IV fluid. Doubtful to be renal colic, the patient has not had flank pain, he has no related symptoms. I have independently reviewed the following tests: Labs: No leukocytosis, not anemic, no electrolyte abnormality, ESR 17, CRP 1.06 CT abdomen and pelvis:Findings: The lung bases are clear. Unremarkable solid organs. There are no abnormal findings in the gallbladder fossa. No urolithiasis. No bowel obstruction, pneumoperitoneum, or pneumatosis. There is mildly edematous fat extending into a complex ventral abdominal wall umbilical hernia. Pelvic contents unremarkable. Normal appendix. No acute fracture. IMPRESSION: No acute findings. Differential Diagnosis Differential Diagnoses: The differential diagnosis associated with the presentation includes See medical decision-making Admission/Observation Consideration of admission/observation: Escalation of care including admission/observation considered Not applicable Lab Data MDM Lab Attestation statement: I reviewed the patient's lab results. 04/04/25 15:42 04/04/25 15:42 Labs: Lab Results 04/04/25 04/04/25 Range/Units 15:42 20:21 WBC 5.8 (4.8-10.8) X10*3/uL RBC 5.24 (4.60-5.80) X10*6/uL Hgb 13.2 L (14.0-18.0) g/dl Hct 42.1 (42.0-52.0) % MCV 80.3 (80.0-98.0) fL MCH 25.2 L (27.0-33.0) pg MCHC 31.4 (31.0-36.0) g/dl RDW 15.4 (11.0-16.0) % Plt Count 194 (160-400) X10*3/uL MPV 11.6 (9.4-12.4) fL Immature Gran % (Auto) 0.3 (0.0-0.4) % Neut % (Auto) 81.7 H (45-73) % Lymph % (Auto) 8.9 L (20-40) % [place] % (Auto) 8.7 (2-11) % Eos % (Auto) 0.2 (0-4) % Baso % (Auto) 0.2 (0-2) % Lymph # (Auto) 0.5 L (1.2-4.9) X10*3/uL [place] # (Auto) 0.5 (0.1-1.2) X10*3/uL Eos # (Auto) 0.0 (0.0-0.4) X10*3/uL Baso # (Auto) 0.0 (0.0-0.2) X10*3/uL Abs Immat Gran (auto) 0.02 (0.00-0.03) X10*3/uL Absolute Neuts (auto) 4.7 (2.0-8.3) x10*3/uL Absolute Nucleated RBC 0.000 (0.0-0.012) X10*3/uL Nucleated RBC % (auto) 0.0 (0.0-0.2) /100WBC ESR 17 H (0-15) MM/HR Sodium 141 (135-145) mmol/L Potassium 3.9 (3.3-5.1) mmol/L Chloride 108 (96-108) mmol/L Carbon Dioxide 28 (22-29) mmol/L Anion Gap 9 L (12-20) BUN 21 H (9-16) mg/dL Creatinine 0.85 (0.5-1.4) mg/dL Estim Creat Clear Calc 112.1 Estimated GFR > 60 Random Glucose 95 (60-115) mg/dL Calcium 8.5 (8.4-10.2) mg/dL Total Bilirubin 0.4 (0.0-1.0) mg/dL AST 21 (5-37) U/L ALT 22 (0-40) U/L Alkaline Phosphatase 88 (39-117) U/L C-Reactive Protein 1.06 H (< or = 0.50) mg/dL Total Protein 6.8 (6.5-8.0) g/dL Albumin 4.1 (3.5-5.0) g/dL Lipase 41 (8-78) U/L Radiology Impression Discussion of test interpretation with radiology: I have reviewed the radiologist's reading. Discharge Plan Discharge Clinical Impression: Abdominal pain Patient Disposition: Home, Self-Care Instructions: Abdominal Pain (ED) Additional Instructions: All of your screening labs including inflammatory markers were normal, the inflammatory markers were minimally elevated. If you were having a Crohn's flare, they would be markedly elevated. The CT scan of the abdomen and pelvis was also negative. Continue to follow up with your behavioral science chair. Prescriptions: No Action Inflectra 100 mg recon soln IV Q6W loratadine [Allergy Relief (loratadine)] 10 mg tablet 10 mg PO DAILY 90 Days Qty: 90 1RF albuterol sulfate 90 mcg/actuation HFA aerosol inhaler 2 puff inhalation Q4-6H PRN (Reason: shortness of breath or wheezing) Qty: 1 6RF fluticasone furoate-vilanterol [Breo Ellipta] 200-25 mcg/dose blister with device 1 inh inhalation DAILY 30 Days Qty: 1 6RF cholecalciferol (vitamin D3) 250 mcg (10,000 unit) capsule 250 mcg PO 2XW 90 Days Qty: 26 1RF cyanocobalamin (vitamin B-12) [Vitamin B-12] 1,000 mcg tablet 1,000 mcg PO DAILY Qty: 90 3RF folic acid 1 mg tablet 1 mg PO DAILY 90 Days Qty: 90 1RF dexlansoprazole [Dexilant] 30 mg capsule,biphase delayed releas 30 mg PO QAM 90 Days Qty: 90 1RF azathioprine 50 mg tablet 50 mg PO DAILY 30 Days Qty: 30 3RF Interventions: ED Discharge Assessment Last Done: 04/04/25 23:16 Discharge Date/Time: 04/04/25 23:16 Print Language: Dominican
[2025-04-04 15:46] LABS: MANUAL DIFF FLAG NO
[2025-04-04 16:00] LABS: Hematocrit 42.1 % (42.0-52.0); Hemoglobin 13.2 g/dl (14.0-18.0); Imm Gran Abs Auto 0.02 X10*3/uL (0.00-0.03); Imm Gran Pct Auto 0.3 % (0.0-0.4); Lymphocytes Absolute Auto 0.5 X10*3/uL (1.2-4.9); Mean Corpuscular HGB Conc 31.4 g/dl (31.0-36.0); Mean Corpuscular Hemoglobin 25.2 pg (27.0-33.0); Mean Corpuscular Volume 80.3 fL (80.0-98.0); NRBC Abs Auto 0.000 X10*3/uL (0.0-0.012); NRBC Pct Auto 0.0 /100WBC (0.0-0.2); Platelet Count 194 X10*3/uL (160-400); Red Blood Count 5.24 X10*6/uL (4.60-5.80); White Blood Count 5.8 X10*3/uL (4.8-10.8)
[2025-04-04 16:01] LABS: Alanine Aminotransferase 22 U/L (0-40); Albumin Level 4.1 g/dL (3.5-5.0); Alkaline Phosphatase 88 U/L (39-117); Anion Gap 9 (12-20); Aspartate Amino Transferase 21 U/L (5-37); Blood Urea Nitrogen 21 mg/dL (9-16); Calcium 8.5 mg/dL (8.4-10.2); Carbon Dioxide 28 mmol/L (22-29); Chloride 108 mmol/L (96-108); Creatinine Clr Calc Pharmacy 112.1; Estimated Glomerular Filt Rate > 60; Lipase 41 U/L (8-78); Potassium 3.9 mmol/L (3.3-5.1); Sodium 141 mmol/L (135-145); Total Protein 6.8 g/dL (6.5-8.0)
--- OUTSIDE RECORDS SUMMARY | 2025-04-04 19:48 | XMS_ITS | Clinical Summary ---
Author Organization [employer] Address [address] [facility] [address] [place] [address] Care Team Providers Care Rehabilitation Therapy Technician Name Role Phone Unavailable Primary Care Provider [...] 4 Active ergocalciferol (Vitamin D2) 1.25 MG (08386 UT) capsule Take 1 capsule (1.25 mg) [...] gastroenterology Wheezing 08/10/2023 Anxiety 08/01/2023 Crohn's disease ([facility]/HCC) 09/13/2022 Iron deficiency anemia 09/13/2022 Vitamin D [...] series) 2001 Depression Screening 09/14/2023 09/13/2022, 09/13/2022 Tobacco Screening 08/09/2024 08/10/2023 SDOH Screening 11/29/2024 11/30/2023 COVID-19 Vaccine (3 - 2024-2 6 season) 2025 11/04/2020, 10/07/2020 Influenza Vaccine (#1) 2025 Lipid Panel 08/23/2028 [...] AM EDT) Hepatitis C Antibody Nonreactive Nonreactive [facility] Comment:Antibodies to HCV no t detected; does not exclude early acuteHCV infection. Blood Venous blood specimen / Unknown 08/24/2023 10:22 AM EDT 08/24/2023 10:22 AM EDT us Monica Iraheta MD LAB BLOOD ORDERABLES Final Re sult [facility] [address] [place] [phone] * HIV-1/2 Antigen and Antibodies, Fourth Generation, with Reflexes (08/24/2023 10:22 AM EDT) HIV AB/AG Nonreactive Nonreactive [facility] Comment:HIV-1 p24 Ag and/or HIV-1/HIV-2 Ab not detected.A test result that is nonreactive does not exclude thepossibility of exposure to or infection with HIV-1 and/orHIV-2. Nonreactive results in this assay for individualswith prior exposure to HIV-1 and/or HIV-2 may be due toantigen and antibody levels that are below the limit ofdetection of this assay.The [employer] HIV Ag/Ab Combo assay result andsupplemental assay results should be interpreted inconjunction with the patient's clinical presentation,history and other laboratory results. If the results areinconsistent with clinical evidence, additional testing issuggested to confirm the result. Blood Venous blood specimen / Unknown 08/24/2023 10:22 AM EDT 08/24/2023 10:22 AM EDT us Monica Iraheta MD LAB BLOOD ORDERABLES Final Re sult [facility] [address] [place] [phone] * (ABNORMAL) Lipid Panel, Standard (08/24/2023 10:22 AM EDT) Triglycerides 213(H) <150 mg/dL [facility] Comment:Desirable Triglyceri de: less than 150 mg/dLBorderline High Triglyceride 150-199 mg/dLHigh Triglyceride: 200-499 mg/dLVery High Triglyceride: greater than or equal to 5OO mg/dL Cholesterol 178 <200 mg/dL [facility] Comment:Desirable Cholestero l: less than 200 mg/dLBorderline High Cholesterol: 200-239 mg/dLHigh Cholesterol: greater than 239 mg/dL LDL Cholesterol Calculated 97 <100 mg/dL [facility] Comment:Desirable LDL: less than 100 mg/dLNear Optimal/Above Optimal LDL: 110- 129 mg/dLBorderline High LDL: 130-159 mg/dLHigh LDL: 160-189 mg/dLVery High LDL: greater than or equal to 190 mg/dL HDL Cholesterol 39(L) >40 mg/dL [facility] Comment:Desirable HDL: great er than 40 mg/dL Note: This HDL assay may give artificially low results in patients with liver disease. Blood Venous blood specimen / Unknown 08/24/2023 10:22 AM EDT 08/24/2023 10:22 AM EDT us Monica Iraheta MD LAB BLOOD ORDERABLES Final Re sult [facility] [address] [place] [phone] [phone] from Last 3 Months or Most Recently Relevant to Health Maintenance Insurance [place] [address] [address] , [address] [place] [address] [facility] MEDICAID [facility] ADULT
--- OUTSIDE RECORDS SUMMARY | 2025-04-04 19:48 | XMS_ITS | Encounter Summary ---
Author Organization [facility] Address [address] [place] [phone] Phone Care Team Providers Care Oyster Culturist Name Role Phone Zayda Moses MD Primary Care Provid er Encounter Details Date Type Department Care Team (Late st Contact Info) Description 02/08/2017 Procedure Pass [facility] [address] [place] [address] Social History Tobacco Use Types Packs/Day Years Used Date Smoking Tobacco: Never Sex and Gender Information Value Date Recorded Sex Assigned at Not on file Legal Sex Male 7:16 PM EST Gender Identity Not on file Sexual Orientation Not on file documented as of this encounter Plan of Treatment Not on file documented as of this encounter Visit Diagnoses Not on filedocumented in this encounter Care Teams Oyster Culturist Relationship Specialty Start Date End Date Zayda Moses MD [address] [place] [address] PCP - General 12/04/13 documented as of this encounter Additional Source Comments The information contained in this document represents components of the legal health record. It is not the complete legal health record.[facility]
--- OUTSIDE RECORDS SUMMARY | 2025-04-04 19:48 | XMS_ITS | Clinical Summary ---
Author Organization [facility] Address [address] [place] [phone] Phone Care Team Providers Care Technical Aide Name Role Phone Zayda Moses MD Primary Care Provid er Allergies Active Allergy Reactions Criticality Noted Date Comments Aspirin Other (See Comments) 07/10/2013 palpitations Medications dexlansoprazole (DEXILANT) 60 mg capsule Take 60 mg by mouth daily. Active mesalamine (ASACOL HD) 800 mg TbEC Take 800 mg by mouth 2 (two) times a day before meals. Take 3 tablets twice a day Active Immunizations Immunization Administration Dates Next Due Influenza, Unspecified Formulation 02/28(Deferred: Patient Decision),08/09/2013(Deferred: Other),07/20/2013(Deferred: Patient Decision) Pneumococcal, Unspecified Formulation (Deferred: Patient Decision),08/09/2013(Deferred: Patient Decision),07/17/2013(Deferred: Other) Social History Tobacco Use Types Packs/Day Years Used Date Smoking Tobacco: Never Education Answer Date Recorded Are you interested in more education? Not on zack e 09/30/2022 Are you concerned about learning? Not on file 09/30/2022 No 09/30/2022 No 09/30/2022 Digital Access Answer Date Recorded No 11/01/2022 No 11/01/2022 No 11/01/2022 Reliable internet access at home? Not on file 11/01/2022 Device with a working camera? Not on file Sex and Gender Information Value Date Recorded Sex Assigned at Not on file Legal Sex Male 7:16 PM EST Gender Identity Not on file Sexual Orientation Not on file Last Filed Vital Signs Vital Sign Reading Time Taken Comments Blood Pressure 132/90 01/31/2017 2:51 PM EDT Pulse 68 01/31/2017 2:51 PM EDT Temperature 37.6 C (99.7 F) 07/10/2013 12:00 AM EST Respiratory Rate - - Oxygen Saturation 99% 07/10/2013 12:00 AM EST Inhaled Oxygen Concentration - - Weight 70.3 kg (155 lb) 01/31/2017 2:51 PM EDT Height 167.6 cm (5' 6 ) 01/31/2017 2:51 PM EDT Body Mass Index 25.02 01/31/2017 2:51 PM EDT Plan of Treatment Health Maintenance Due Date Last Done Comments Adult Td,Tdap Booster 1982 LIPID PANEL 1982 DEPRESSION SCREENING 1994 HEPATITIS C SCREENING 2000 HIV ONE-TIME SCREENING (18-6 5 YEARS) 2000 INFLUENZA VACCINE (#1) 2025 COVID-19 VACCINE (3 2024-2 6 season) 2025 11/04/2020, 10/07/2020 SMOKING STATUS SCREENING (On ce After 26 Yrs) Completed 01/31/2017 HEPATITIS A VACCINES Aged Out No long er eligible based on patient's age to complete this topic HIB VACCINES Aged Out No longer eligi ble based on patient's age to complete this topic MENINGOCOCCAL VACCINES (ACWY) Aged Out No longer eligible based on patient's age to complete this topic MENINGOCOCCAL VACCINES (B) Aged Out N o longer eligible based on patient's age to complete this topic PNEUMOCOCCAL VACCINES (0-49 years) Aged Out No longer eligible b ased on patient's age to complete this topic Medical Devices Not on file Insurance * Guarantor: Brian Hsieh Account Type Relation to Patient Date of Phone Billing Address Personal/Family Self 1980 [address] [facility] [place] [address] [facility] PUBLIC [employer] [address] [place] [address] [employer] [address] [place] [address] [employer] [facility] [address] [employer] [facility] DIRECT [facility] [employer] DIRECT [facility] [employer] * Guarantor: Brian Hsieh Account Type Relation to Patient Date of Phone Billing Address Personal/Family Self 1980 [address] [place], [place] [facility] [employer] Care Teams Technical Aide Relationship Specialty Start Date End Date Zayda Moses MD [address] [place] [address] PCP - General 12/04/13 Additional Source Comments The information contained in this document represents components of the legal health record. It is not the complete legal health record.[facility]
[2025-04-04] MEDS: iohexoL 350 MG/ML 100 ML INFUS..BTL IV (21:05)
[2025-04-04 21:12] LABS: Erythrocyte Sedimentation Rate 17 MM/HR (0-15)
[2025-04-04 22:35] VITALS: BP 130/73; PULSE 76; RESP 18; TEMP 36.6; O2SAT 99
[2025-04-04 23:16] VITALS: BP 130/73; PULSE 76; RESP 18; TEMP 36.6; O2SAT 99
== END 2025-04-04 23:16 | disposition home or self-care (01) ==
PROVIDERS: Physician Assistant; Physician Assistant Medical; Emergency Provider Emergency Medicine; PCP Physician Assistant
DX: R10.32 Left lower quadrant pain (principal); K50.90 Crohn's disease, unspecified, without complications; K21.9 Gastro-esophageal reflux disease without esophagitis; J45.909 Unspecified asthma, uncomplicated; Z87.442 Personal history of urinary calculi; Z79.899 Other long term (current) drug therapy
CPT/HCPCS: 36415; 74177; 80053; 83690; 85025; 85652; 86140; 96361; 96374; 96375; 99285; J1171; J2405; Q9967

== ENCOUNTER → 2025-04-04 19:41 | Outpatient (BNV) | payer OTHER, SELFPAY | PROVIDERS: Emergency Provider Emergency Medicine; PCP Physician Assistant; Visit Provider Specialist | DX: R10.32 Left lower quadrant pain (principal) | CPT/HCPCS: 74177 ==

== ENCOUNTER 2025-04-18 08:51 | Outpatient (AMB) | payer OTHER, SELFPAY ==
--- NOTE | 2025-04-18 09:14 | MHC.OFFVIS ---
Vital Signs 04/18/25 09:18 Height 5 ft 6 in Weight 170 lb BMI 27.4 BP 164/70 H Blood Pressure Location Lt brachial Position Sitting Pulse 93 Intake Visit Reasons: 3 months Crohn's and celiac disease Intake Note: Patient 3 months Crohn's and celiac disease. 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 Accompanied by: Self / Same As Patient Allergies aspirin (Aspirin) Allergy (Intermediate, Verified 04/18/25 09:13) TACHYCARDIA, palpitations, tachycardia latex (LATEX) Allergy (Intermediate, Verified 04/18/25 09:13) RASH gluten Allergy (Verified 04/18/25 09:13) Unknown diphenhydramine (From BENADRYL) Adverse Reaction (Intermediate, Verified 04/18/25 09:13) TACHYCARDIA AND CHNAGES IN BEHAVOR Medication List - Last Reconciled 04/18/25 by Vashti Augustin MD albuterol sulfate 90 mcg/actuation 2 puffs inhalation Q4-6H PRN azathioprine 50 mg PO DAILY 30 days cholecalciferol (vitamin D3) 250 mcg PO 2XW 90 days cyanocobalamin (vitamin B-12) (Vitamin B-12) 1,000 mcg PO DAILY dexlansoprazole (Dexilant) 30 mg PO QAM 90 days fluticasone furoate-vilanterol 200-25 mcg/dose (Breo Ellipta) 1 inh inhalation DAILY 30 days folic acid 1 mg PO DAILY 90 days infliximab-dyyb (Inflectra) mg IV Q6W loratadine (Allergy Relief (loratadine)) 10 mg PO DAILY 90 days HPI HPI 3 months Crohn's and celiac disease: Details: GI clinic visit for this 44 for follow up of celiac, MARK and fibrostenotic Crohn's disease status post surgery x 3 (stricturoplasty and small bowel resection). Pt has been followed at [facility] for Remicade injections every 6 weeks. Has a new insurance and would like to switch his care to [facility]. Has 1 more appt for Remicade at [facility] - on 11/28/24 and would like to schedule future infusions at [facility]. Pt is also he is due for a colonoscopy for CD surveillance. IBD SUMMARY YEAR OF DIAGNOSIS: 1995 (symptoms since age 17 yrs) DISEASE EXTENT: Small bowel and colon LAST COLONOSCOPY: 2021 NEXT COLON DUE: Now EXTRAINTESTINAL MANIFESTATIONS: Denies mouth ulcers, skin rash. Complains of blurred vision and joint pains. GI SURGERY: Two GI surgeries in [place] and one in [facility] - last surgery 8 yrs ago PAST TREATMENTS: Steroids, Asacol, Entyvio CURRENT THERAPY: Remicade every 6 weeks, Dexilent for GERD He is supposed to take a pill and has not been doing so VACCINATIONS: Flu shot: None Hep A/B serology /vaccination: Unsure if he is vaccinated for Hep A and B TB screen: 11/21/24 negative TODAY'S VISIT: Patient reports abdominal pain, with bloating and he went to the [facility] ED Notes abdominal pain 1-2 times a week - can wake up with abd pain Denies association with meals Denies diarrhea - has a BM once a day Rectal bleeding has subsided. Appt for infliximab was cancelled since he lost his insurance - last infusion in Feb 11 2025 Has insurance now and would like to resume. PAST VISITS: Patient here for follow up for Anemia, lab and Abdominal MRI results. MRI results reviewed with the patient Intermittent episodes of abdominal pain and diarrhea Abd pain and diarrhea can last 1-3 days Has 1-2 BMs a day Can be pain free for 2 weeks Last episode of rectal bleeding was a month ago and lasted 3-4 days. Pt states not compliant to GFD due to busy work schedule. Takes Dexlansoprazole daily. Patient follow up for Celiac disease, and Hx of Crohns - Chronic absorption Issue and lab results. Abdominal MRI was cancel due insurance issues. Complains of intermittent abdominal pain. Rectal bleeding for the past 7 - 10 days Blood is BR and separate from the stools Has a BM daily - usually normal - sometimes hard or soft. Complains of heartburn 4 days a week not always with intake of meals Notes nocturnal regurgitation of acidic fluid Patient denies symptoms of dysphagia, nausea, vomiting, change in appetite or weight. Denies recent change in bowel habits, constipation, diarrhea, black stools or rectal bleeding. Has a normal BM daily Denies gas or bloating. Pt reports 1 to 2 times a month he has severe abdominal discomfort that is accompanied by nausea vomiting constipation and inability to pass gas - concerning for bowel obstruction. Patient normally stays home makes himself NPO and his symptoms subside. Patient notes that he has 2 abdominal hernia that caused discomfort when he coughs or bears down - these are reducible and appear like golf balls protruding out of his abdomen. Takes Remicade (Inflectra 10 mg/kg )every 6 weeks at [facility] (missed his last dose) Scheduled for an EGD and colon at [facility] x 2 - went to [facility] and unable to find the office and left Does not want to go to [facility] anymore. Denies being on a Gluten free diet - finds it hard to follow - tries his best to get Gluten free food Patient denies major cardiac or pulmonary problems, loud snoring or sleep apnea Denies problems with anesthesia in the past. Denies being on chronic anticoagulation. Patient denies known family history of IBD, colon polyps, colon cancer or other GI malignancies. 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 Pepe at [facility] which showed an end-to-side ileo-colic anastomosis - felt a bit tight on intubation without iza stricture. Multiple 1-2 mm pseudo polyps in the descending colon Small internal and external hemorrhoids. Pt was advised further evaluation with MR enterography. LABS IN [facility] : Reviewed IMAGING STUDIES: 08/[address] SCAN SHOWED: GASTROINTESTINAL TRACT: The patient is again noted to have undergone small bowel resection with chain sutures in the epigastric region. There is a dilated loop of small bowel just proximal to the surgical staple anastomotic line, in the epigastrium, measuring up to 4.1 cm in diameter. At the pelvic brim, there is an additional dilated loop of small bowel adjacent to surgical jose, measuring up to 3.6 cm, with equalization of internal contents. No significant perienteric infiltration is evident. There is no free air., adjacent to the surgical anastomotic line, there is a loop of small bowel which although not dilated appears fecalized, and is more distended than on 10/14/2021 The distal ileum is collapsed, but demonstrates submucosal lipomatous infiltration, consistent with inflammatory bowel disease, particularly Crohn's disease. The rectum is distended with fecal material. ABDOMINAL WALL: A fat-containing anterior abdominal wall hernias are again evident, unchanged, 10/14/[address] SCAN SHOWED: The liver demonstrates normal size, contour and attenuation. Approximately 1.5 cm gallstone noted within otherwise unremarkable appearing gallbladder. Similar postsurgical changes of the small bowel. Similar prominence of the single loop of small bowel within the left abdomen. There is no evidence of an obstructive process. There is a mild to moderate colonic stool burden. Fat-containing ventral abdominal hernias are again noted and appear relatively similar. PAST GI HISTORY BY REVIEW OF MEDICAL RECORDS: 10/15/21 PT WAS SEEN DURING HOSPITALIZATION AT [facility]: Chief Complaint: Rectal bleeding, abdominal pain 41 YM with celiac disease and fibrostenotic Crohn's disease status post surgery x 3 (stricturoplasty and small bowel resection) seen at [facility] ED on 10/14/21 with 3 days of rectal bleeding and abdominal pain.? The patient reported his been doing well until the last 3-4 days when he started to feel dark blood coming out with stool with bowel movement mainly.? No episodes of bleeding bright red blood.? Denies any fever, chills but reports having lower abdominal pain which he denies usually having.? Pain was pressure-like and not affected by eating. Pt noted dizziness while he was taking a shower. Patient reports being diagnosed with Crohn's disease 16 years ago. He has had 3 surgeries (1st two surgeries were performed at [facility] - stricturoplasty and he had 6 inches of small bowel removed during the last surgery at [facility] 4-5 yrs ago). Pt has been on Remicade every 6 weeks - last infusion on October 03.? He follows with Dr Pleitez, [facility] GI but decided to come today for worsening symptoms.? Blood work showed mild iron deficiency anemia but overall close to his baseline. Pt was admitted for further evaluation and treatment and started on IV prednisone. Pt reports getting an iron infusion a month ago - hx of chronic MARK. 3?2021 patient had a colonoscopy performed by Dr. Pepe at [facility] which showed an end-to-side ED okay colic anastomosis - felt a bit tight on intubation without iza stricture. Multiple 1-2 mm pseudo polyps in the descending colon Small internal and external hemorrhoids. Pt was advised further evaluation with MR enterography. Patient takes Dexilant for heartburn and denies dysphagia, nausea, vomiting, change in appetite or weight. Denies recent change in bowel habits or diarrhea.. Denies being on chronic anticoagulation. Patient denies smoking or EtOH abuse. Patient works in [employer] and has 2 children (16 & 17 yrs old) Patient denies known family history of IBD colon polyps, colon cancer or other GI malignancies. PAST EGD/COLONOSCOPY: 09/2018 EGD AND COLONOSCOPY WERE PERFORMED BY DR. MACKEY: Esophagus: GE junction at 42 cm. No esophagitis or Moody?s. Stomach: Mild gastric erythema. Biopsies were obtained. Grade 2 flap valve on retroflexed examination of the cardia. Duodenum: Abormal bulb and descending duodenum with mucosal flattening and cobblestoning, bx taken Colonoscopy Findings: Ileocolonic anastomosis: small bowel could not be entered due to edema, inflammation, bx taken from the area Ascending Colon ? normal Transverse Colon - normal bx from above 2 sites in seperate jar Descending Colon ? 1-2 pseudopolyps seen Sigmoid Colon ? normal Rectum ? normal Anorectum - retroflexion with grade I moderate sized hemorrhoids with some contact bleeding, minor BIOPSIES SHOWED: A. Duodenal bx's B. Stomach bx's C. Ileocolonic anastomosis bx's D. Right sided and transverse colon bx's E. Left sided colon bx's F. Rectal bx's DIAGNOSIS A. Duodenum, biopsy: Duodenal mucosa with focal complete effacement of villous architecture and increased intraepithelial lymphocytes. See comment. B. Stomach, biopsy: Moderate chronic inactive gastritis; no Helicobacter organisms seen. C. Ileocolonic anastomosis, biopsy: Colonic mucosa with chronic, moderately active, inflammation. D. Colon, right and transverse, biopsy: Chronic inactive colitis. E. Colon, left, biopsy: Chronic inactive colitis. F. Rectum, biopsy: Colonic mucosa within normal limits. COMMENT: The patient's history of Crohn's is noted. A few small loose granulomas are seen in part D. No dysplasia is seen in any of the biopsies. The findings in the duodenum raise the possibility of concurrent celiac disease; however, upper tract involvement by Crohn's can give the same histologic picture [facility] Medical History (Updated 06/13/25 @ 14:03 by Cristal Berman RN) Celiac disease GERD (gastroesophageal reflux disease) Crohn's disease Asthma Abdominal pain despite therapy for Crohn's disease Surgical History History of laparoscopic cholecystectomy (09/01/22) H/O abdominal surgery Family History Father Hypertension Mother Diabetes Maternal Grandfather Renal cancer Brother In good health Brother In good health Sister In good health Son In good health Son In good health Social History Household Members: Family Housing: House Do you presently have visiting nurse or other home services: No Alcohol intake: never Patient Tobacco Use Status: Never used Tobacco e-Cigarette/Vaping Use: Never Used Second Hand Smoke Exposure: No service: No Current occupational status: employed Cognitive needs: No Hearing needs: No Vision needs: No Review of Systems Const All systems reviewed & are unremarkable except as noted in HPI and below Physical Exam Vital Signs: Last Vital Signs Pulse 93 04/18/25 09:18 BP 164/70 H 04/18/25 09:18 BMI result Body Mass Index 27.4 Const General: no acute distress Nutritional Appearance: overweight Orientation/consciousness: patient oriented x3 Limitations: no limitations HEENT Head: Yes normal to inspection Ears: hearing grossly normal bilaterally Mouth: Normal oral and palatal mucosa present Eyes Sclerae: sclerae normal Pupils: Equal, round and reactive pupils present Neck Neck: Yes normal visual inspection Chest Chest palpation & inspection: normal inspection of the chest Resp Effort & Inspection: normal respiratory effort Auscultation: clear to auscultation bilaterally Cardio Palpation: normal PMI Rate: regular rate Rhythm: regular rhythm Heart sounds: S1 normal heart sound present, S2 normal heart sound present and no murmurs GI Inspection: Yes scar (midline scar of past surgeries) and Yes visible herniation Palpation (GI): Soft to palpation, nontender and No hepatosplenomegaly present Auscultation: normal bowel sounds Rectal Exam - Male: Yes deferred Skin General skin exam: no rashes or lesions noted Neuro General: patient oriented x3, gait normal and moves all extremities Cranial nerves: Yes Equal, round and reactive pupils present Psych Appearance: grossly normal Mental Status: mental status grossly normal Assessment & Plan Assessment & Plan (1) GERD (gastroesophageal reflux disease): Code(s): K21.9 - Gastro-esophageal reflux disease without esophagitis Category: Medical (2) Celiac disease: Code(s): K90.0 - Celiac disease Category: Medical (3) Crohn disease: Code(s): K50.90 - Crohn's disease, unspecified, without complications Category: Medical Qualifiers: Digestive disease complication type: unspecified complication Gastrointestinal tract location: small intestine Qualified Code(s): K50.019 - Crohn's disease of small intestine with unspecified complications (4) Hernia: Code(s): K46.9 - Unspecified abdominal hernia without obstruction or gangrene Category: Medical Plan 44 YM with celiac, MARK and fibrostenotic Crohn's disease status post surgery x 3 (stricturoplasty and small bowel resection). He has been going to [facility] for Remicade injections every 6 weeks and would like to switch his care to [facility]. Patient has a history of pseudo obstructive symptoms including nausea vomiting and inability to pass gas and constipation approximately 1 to 2 times a month. Symptoms could be due to partial small-bowel obstruction versus adhesions from prior abdominal surgery. Pt has a history of erratic medication adherence due to insurance issues. IBD SUMMARY YEAR OF DIAGNOSIS: 1995 (symptoms since age 17 yrs) DISEASE EXTENT: Small bowel and colon LAST COLONOSCOPY FINDINGS: 2021 NEXT COLON DUE: Now EXTRAINTESTINAL MANIFESTATIONS: Denies mouth ulcers, skin rash. Complains of blurred vision and joint pains. GI SURGERY: Two GI surgeries in [place] and one in [facility] - last surgery 8 yrs ago 2014 multiple stricturoplasties at [facility] 2018 small-bowel resection for chronic stricture at [facility]. PAST TREATMENTS: Steroids, Asacol, Humira 2017 (discontinued since he did not like injections), Entyvio [id number] (discontinued due to lack of response), CURRENT THERAPY: Remicade every 6 weeks, Dexilent for GERD He is supposed to take a pill (Methotrexate 15 mg weekly) and has not been compliant PLAN: 1. Schedule an Abd MRI scan 2. Advised to keep appt for next Remicade infusion at [facility] on 11/28/24 and then switch to [facility] short stay for future Remicade infusion 3. Hep A vaccination 4. Ref to Nutrition for education on gluten free diet 5. Continue dexlansoprazole 30 mg daily for GERD ADDENDUM: Labs showed normal LFTs and infliximab antibodies were not detected. 01/14/25 MRI SHOWED: 1. Few loops of small bowel with wall thickening without evidence of any enhancement in the left upper quadrant - most likely represents underdistention versus sequela of CD 2. No acute inflammatory process involving the small and large bowel. 3. Few loops of borderline dilated small bowel without wall thickening or enhancement - no small or large bowel obstruction noted. 4. Feathering appearance of loops of small bowel localized to the left upper quadrant - possibly due to celiac disease versus normal variant. 5. Terminal ileum appears intact without inflammation 11/21/24 serum infliximab level was undetectable at less than 1 microgram/mL, with undetectable ATI (< 3.1) 1 week before infliximab infusion. Above results were reviewed with the patient. Advised to change infliximab infusion to every 4 weeks and add azathioprine 50 mg daily Next infusion scheduled on 02/15 and will move to week of Feb pending insurance approval. Repeat labs prior to infliximab infusion in Mar, 2025 04/18/25 Patient reports abdominal pain, with bloating and he went to the [facility] ED Notes abdominal pain 1-2 times a week - can wake up with abd pain Denies association with meals Denies diarrhea - has a BM once a day Pt advised to schedule an EGD (FU of celiac disease) and colonoscoipy (FU of Crohn's disease) Resume infliximab infusions every 6 weeks FU in 4 months - scheduled 07/25/25 Medications: Changed From infliximab-dyyb IV Q6W To infliximab-dyyb (Inflectra) 771 mg IV Q4W 1 ea 5RF 6 months Refilled azathioprine 50 mg PO DAILY 30 tabs 3RF 30 days K51.50 - Left sided colitis without complications Coding Level of Care Code Est Pt Level 4 (96847) Diagnoses GERD (gastroesophageal reflux disease) K21.9 Celiac disease K90.0 Crohn's disease of small intestine with complication K50.019 Digestive disease complication type: unspecified complication Gastrointestinal tract location: small intestine Hernia K46.9 Time Spent (min) 22
[2025-04-18 09:18] VITALS: BP 164/70; PULSE 93; BMI 27.4
== END 2025-04-18 09:56 | disposition home or self-care (01) ==
LOC: HO.HGI 08:51
PROVIDERS: PCP Physician Assistant; Visit Provider Internal Medicine Gastroenterology
DX: K21.9 Gastro-esophageal reflux disease without esophagitis (principal); K90.0 Celiac disease; K50.019 Crohn's disease of small intestine with unspecified complications; K46.9 Unspecified abdominal hernia without obstruction or gangrene
CPT/HCPCS: 99214

== ENCOUNTER → 2025-04-18 08:51 | Outpatient (BNVA) | payer OTHER, SELFPAY | PROVIDERS: PCP Physician Assistant; Visit Provider Internal Medicine Gastroenterology | DX: K50.019 Crohn's disease of small intestine with unspecified complications (principal); K90.0 Celiac disease; K21.9 Gastro-esophageal reflux disease without esophagitis; K46.9 Unspecified abdominal hernia without obstruction or gangrene | CPT/HCPCS: 99212 ==